=== PATIENT | male | born 1980 | race Caucasian/White ===

== ENCOUNTER 2023-08-06 07:20 | Inpatient (IN) | payer OTHER ==
--- NOTE | 2023-08-06 07:37 | ED ---
General Adult HPI - General Chief complaint: Recheck/Abnormal Lab/Rx Stated complaint: Withdrawals Time Seen by Provider: 08/06/23 07:21 Source: patient, EMS, RN notes reviewed Mode of arrival: EMS Limitations: no limitations - History of Present Illness Initial comments: 43-year-old male presents emergency department via EMS from [place] for evaluation of alcohol withdrawal. Patient states that he was admitted on Friday states that he has been receiving Ativan at the facility for his withdrawal symptoms. He states he was drinking 1 L of liquor daily. Patient states he did have withdrawal symptoms including shaking, nausea and vomiting but was controlled by the medications. He states he did receive Ativan just prior to arrival. He does admit that he is very anxious because he does not like being in the hospital or needles. Patient denies chest pain shortness of breath hallucinations he states he was having a dream in which she stated was very vivid and was trying to run away. - Related Data Home Medications Medication Instructions Recorded Confirmed LORazepam [Ativan] 1 - 2 mg PO Q4H PRN 08/06/23 08/06/23 Allergies Allergy/AdvReac Type Severity Reaction Status Date / Time No Known Allergies Allergy Verified 08/06/23 10:20 Review of Systems ROS Statement: Those systems with pertinent positive or pertinent negative responses have been documented in the HPI. ROS Other: All systems not noted in ROS Statement are negative. Past Medical History Past Medical History: No Reported History History of Any Multi-Drug Resistant Organisms: None Reported Past Surgical History: Appendectomy Past Psychological History: No Psychological Hx Reported Smoking Status: Current every day smoker Past Alcohol Use History: Abuse Past Drug Use History: Marijuana General Exam Limitations: no limitations General appearance: alert, in no apparent distress Head exam: Present: atraumatic, normocephalic, normal inspection Eye exam: Present: normal appearance, PERRL, EOMI. Absent: scleral icterus, conjunctival injection, periorbital swelling ENT exam: Present: normal exam, normal oropharynx, mucous membranes moist Neck exam: Present: normal inspection, full ROM. Absent: tenderness, meningismus, lymphadenopathy Respiratory exam: Present: normal lung sounds bilaterally. Absent: respiratory distress, wheezes, rales, rhonchi, stridor Cardiovascular Exam: Present: normal rhythm, tachycardia, normal heart sounds. Absent: systolic murmur, diastolic murmur, rubs, gallop, clicks GI/Abdominal exam: Present: soft, normal bowel sounds. Absent: distended, tenderness, guarding, rebound, rigid Neurological exam: Present: alert, oriented X3 Skin exam: Present: warm, dry, intact, normal color. Absent: rash Course Vital Signs 08/06/23 08/06/23 08/06/23 07:26 07:34 08:05 Temperature 99.4 F Pulse Rate 130 H 128 H 114 H Respiratory 20 19 17 Rate Blood Pressure 144/113 127/87 122/85 O2 Sat by Pulse 94 L 95 96 Oximetry 08/06/23 08/06/23 08/06/23 09:15 12:03 14:42 Temperature 99.0 F Pulse Rate 115 H 129 H 100 Respiratory 20 20 18 Rate Blood Pressure 124/80 125/85 127/89 O2 Sat by Pulse 97 97 96 Oximetry EKG Findings - EKG Comments: EKG Findings:: EKG performed at 7: 41 sinus tachycardia with rate of 120 NC 124 QRS 77 QT/QTc 293/365 - EKG Results: EKG: interpreted by [facility] Medical Decision Making - Medical Decision Making Was pt. sent in by a medical professional or institution (, PA, IP ATTORNEY, urgent care, hospital, or detention...) When possible be specific @ -[place] Did you speak to anyone other than the patient for history (EMS, parent, family, police, friend...)? What history was obtained from this source @ -No Did you review nursing and triage notes (agree or disagree)? Why? @ -I reviewed and agree with nursing and triage notes Were old charts reviewed (outside hosp., previous admission, EMS record, old EKG, old radiological studies, urgent care reports/EKG's, detention records)? Report findings @ -No old charts were reviewed Differential Diagnosis (chest pain, altered mental status, abdominal pain women, abdominal pain men, vaginal bleeding, weakness, fever, dyspnea, syncope, headache, dizziness, GI bleed, back pain, seizure, CVA, palpatations, mental health, musculoskeletal)? @ -[Alcohol withdrawal, alcohol abuse, alcohol intoxication EKG interpreted by me (3pts min.). @ -As above X-rays interpreted by me (1pt min.). @ -None done CT interpreted by me (1pt min.). @ -None done U/S interpreted by me (1pt. min.). @ -None done What testing was considered but not performed or refused? (CT, X-rays, U/S, labs)? Why? @ -None What meds were considered but not given or refused? Why? @ -None Did you discuss the management of the patient with other professionals (professionals i.e. , PA, IP ATTORNEY, lab, RT, psych nurse, social worker clinical, manufacturing plant technician, teacher, aoc director combat operations officer, case management manager)? Give summary @ -EM for admission secondary to persistent hallucinations, delirium from alcohol withdraw patient has received multiple doses of Ativan] Was smoking cessation discussed for >3mins.? @ -No Was critical care preformed (if so, how long)? @ -No Were there social determinants of health that impacted care today? How? (Homelessness, low income, unemployed, alcoholism, drug addiction, transportation, low edu. Level, literacy, decrease access to med. care, group home, rehab)? @ -No Was there de-escalation of care discussed even if they declined (Discuss DNR or withdrawal of care, Hospice)? DNR status @ -No What co-morbidities impacted this encounter? (DM, HTN, Smoking, COPD, CAD, Cancer, CVA, ARF, Chemo, Hep., AIDS, mental health diagnosis, sleep apnea, morbid obesity)? @ -[Alcohol abuse Was patient admitted / discharged? Hospital course, mention meds given and route, prescriptions, significant lab abnormalities, going to OR and other pertinent info. @ -Admitted patient has alcohol withdrawal with delirium patient is on CIWA and Ativan withdrawal protocol patient has received multiple doses with persistent symptoms. Patient did have mild hypomagnesia which was replaced. Undiagnosed new problem with uncertain prognosis? @ -No Drug Therapy requiring intensive monitoring for toxicity (Heparin, Nitro, Insulin, Cardizem)? @ -No Were any procedures done? @ -No Diagnosis/symptom? @ -[Alcohol drawl delirium, hypomagnesemia Acute, or Chronic, or Acute on Chronic? @ -Acute Uncomplicated (without systemic symptoms) or Complicated (systemic symptoms)? @ -Complicated Side effects of treatment? @ -[No Exacerbation, Progression, or Severe Exacerbation? @ -No Poses a threat to life or bodily function? How? (Chest pain, [place], [place], pneumonia, PE, COPD, DKA, ARF, appy, cholecystitis, CVA, Diverticulitis, Homicidal, Suicidal, threat to staff... and all critical care pts) @ -[Yes alcohol withdrawal - Lab Data Result diagrams: 08/06/23 07:53 08/06/23 07:53 Lab Results 08/06/23 08/06/23 08/06/23 Range/Units 07:53 07:53 07:53 WBC 8.3 (3.8-10.6) k/uL RBC 4.62 (4.30-5.90) m/uL Hgb 16.3 (13.0-17.5) gm/dL Hct 46.8 (39.0-53.0) % MCV 101.3 H (80.0-100.0) fL MCH 35.2 H (25.0-35.0) pg MCHC 34.8 (31.0-37.0) g/dL RDW 13.1 (11.5-15.5) % Plt Count 70 L (150-450) k/uL MPV 9.7 Neutrophils % 81 % Lymphocytes % 8 % Monocytes % 9 % Eosinophils % 1 % Basophils % 0 % Neutrophils # 6.8 (1.3-7.7) k/uL Lymphocytes # 0.7 L (1.0-4.8) k/uL Monocytes # 0.7 (0-1.0) k/uL Eosinophils # 0.1 (0-0.7) k/uL Basophils # 0.0 (0-0.2) k/uL Manual Slide Review Performed Macrocytosis Slight Sodium 137 (137-145) mmol/L Potassium 4.2 (3.5-5.1) mmol/L Chloride 95 L (98-107) mmol/L Carbon Dioxide 29 (22-30) mmol/L Anion Gap 13 mmol/L BUN 22 H (9-20) mg/dL Creatinine 1.12 (0.66-1.25) mg/dL Est GFR (CKD-EPI)AfAm >90 (>60 ml/min/1.73 sqM) Est GFR (CKD-EPI)NonAf 81 (>60 ml/min/1.73 sqM) Glucose 98 (74-99) mg/dL Plasma Lactic Acid Jef[place] (0.7-2.0) mmol/L Calcium 10.9 H (8.4-10.2) mg/dL Magnesium 1.4 L (1.6-2.3) mg/dL Total Bilirubin 1.0 (0.2-1.3) mg/dL AST 164 H (17-59) U/L ALT 140 H (4-49) U/L Alkaline Phosphatase 74 (38-126) U/L Total Protein 7.5 (6.3-8.2) g/dL Albumin 4.8 (3.5-5.0) g/dL Amylase 71 (30-110) U/L Lipase 146 (23-300) U/L Urine Color [place] Urine Appearance Clear (Clear) Urine pH 5.5 (5.0-8.0) Ur Specific [place] 1.034 (1.001-1.035) Urine Protein 1+ H (Negative) Urine Glucose (UA) Negative (Negative) Urine Ketones 2+ H (Negative) Urine Blood Negative (Negative) Urine Nitrite Negative (Negative) Urine Bilirubin 1+ H (Negative) Urine Urobilinogen 6.0 (<2.0) mg/dL Ur Leukocyte Esterase Trace H (Negative) Urine RBC 3 (0-5) /hpf Urine WBC 4 (0-5) /hpf Ur Squamous Epith Cells 1 (0-4) /hpf Urine Bacteria Rare H (None) /hpf Hyaline Casts 110 H (0-2) /lpf Urine Mucus Many H (None) /hpf Influenza Type A (PCR) (Not Detectd) Influenza Type B (PCR) (Not Detectd) RSV (PCR) (Not Detectd) SARS-CoV-2 (PCR) (Not Detectd) 08/06/23 08/06/23 Range/Units 07:53 07:53 WBC (3.8-10.6) k/uL RBC (4.30-5.90) m/uL Hgb (13.0-17.5) gm/dL Hct (39.0-53.0) % MCV (80.0-100.0) fL MCH (25.0-35.0) pg MCHC (31.0-37.0) g/dL RDW (11.5-15.5) % Plt Count (150-450) k/uL MPV Neutrophils % % Lymphocytes % % Monocytes % % Eosinophils % % Basophils % % Neutrophils # (1.3-7.7) k/uL Lymphocytes # (1.0-4.8) k/uL Monocytes # (0-1.0) k/uL Eosinophils # (0-0.7) k/uL Basophils # (0-0.2) k/uL Manual Slide Review Macrocytosis Sodium (137-145) mmol/L Potassium (3.5-5.1) mmol/L Chloride (98-107) mmol/L Carbon Dioxide (22-30) mmol/L Anion Gap mmol/L BUN (9-20) mg/dL Creatinine (0.66-1.25) mg/dL Est GFR (CKD-EPI)AfAm (>60 ml/min/1.73 sqM) Est GFR (CKD-EPI)NonAf (>60 ml/min/1.73 sqM) Glucose (74-99) mg/dL Plasma Lactic Acid Jefry 1.9 (0.7-2.0) mmol/L Calcium (8.4-10.2) mg/dL Magnesium (1.6-2.3) mg/dL Total Bilirubin (0.2-1.3) mg/dL AST (17-59) U/L ALT (4-49) U/L Alkaline Phosphatase (38-126) U/L Total Protein (6.3-8.2) g/dL Albumin (3.5-5.0) g/dL Amylase (30-110) U/L Lipase (23-300) U/L Urine Color Urine Appearance (Clear) Urine pH (5.0-8.0) Ur Specific [place] (1.001-1.035) Urine Protein (Negative) Urine Glucose (UA) (Negative) Urine Ketones (Negative) Urine Blood (Negative) Urine Nitrite (Negative) Urine Bilirubin (Negative) Urine Urobilinogen (<2.0) mg/dL Ur Leukocyte Esterase (Negative) Urine RBC (0-5) /hpf Urine WBC (0-5) /hpf Ur Squamous Epith Cells (0-4) /hpf Urine Bacteria (None) /hpf Hyaline Casts (0-2) /lpf Urine Mucus (None) /hpf Influenza Type A (PCR) Not Detected (Not Detectd) Influenza Type B (PCR) Not Detected (Not Detectd) RSV (PCR) Not Detected (Not Detectd) SARS-CoV-2 (PCR) Not Detected (Not Detectd) Disposition Clinical Impression: Alcohol withdrawal delirium Disposition: ADMITTED IP TO THIS HOSP Condition: Fair Time of Disposition: 09:41
[2023-08-06] MEDS: NICOTINE 21MG/24HR PATCH TRANSDERM STA (07:57)
[2023-08-06] MEDS: LORazepam 2 MG/ML INJ IV STA ×4 (08:00→12:05)
[2023-08-06] MEDS: SODIUM CHLORIDE 0.9% 1,000 ML IV STA (08:01)
[2023-08-06] MEDS: SODIUM CHLORIDE 0.9% 500 ML 500 ML IV STA (08:02)
[2023-08-06 08:08] LABS: Appearance,Urine Clear (Clear); Bacteria,Urine Rare /hpf; Bilirubin,Urine 1+ (Negative); Blood,Urine Negative (Negative); Color,Urine Orange; Glucose,Urine (UA) Negative (Negative); Hyaline Casts,Urine 110 /lpf (0-2); Ketones,Urine 2+ (Negative); Leukocyte Esterase,Urine Trace (Negative); Mucus,Urine Many /hpf; Nitrite,Urine Negative (Negative); PH, Urine 5.5 (5.0-8.0); Protein,Urine 1+ (Negative); RBC,Urine 3 /hpf (0-5); Specific Gravity,Urine 1.034 (1.001-1.035); Squamous Epithelial Cell,Urine 1 /hpf (0-4); WBC,Urine 4 /hpf (0-5)
[2023-08-06 08:17] LABS: Basophils % (A) 0 %; Eosinophils # (A) 0.1 k/uL (0-0.7); Eosinophils % (A) 1 %; HCT 46.8 % (39.0-53.0); HGB 16.3 gm/dL (13.0-17.5); Lymphocytes # (A) 0.7 k/uL (1.0-4.8); Lymphocytes % (A) 8 %; MCH 35.2 pg (25.0-35.0); MCHC 34.8 g/dL (31.0-37.0); MCV 101.3 fL (80.0-100.0); Macrocytosis Slight; Mean Platelet Volume 9.7; Monocytes # (A) 0.7 k/uL (0-1.0); Monocytes % (A) 9 %; Neutrophils # (A) 6.8 k/uL (1.3-7.7); Neutrophils % (A) 81 %; RBC 4.62 m/uL (4.30-5.90); RDW 13.1 % (11.5-15.5); WBC 8.3 k/uL (3.8-10.6)
[2023-08-06 08:18] LABS: ALT 140 U/L (4-49); AST 164 U/L (17-59); African American GFR (CKD) >90 (>60 ml/min/1.73 sqM); Albumin 4.8 g/dL (3.5-5.0); Alkaline Phosphatase 74 U/L (38-126); Amylase 71 U/L (30-110); Anion Gap 13 mmol/L; Blood Urea Nitrogen 22 mg/dL (9-20); Calcium 10.9 mg/dL (8.4-10.2); Carbon Dioxide 29 mmol/L (22-30); Chloride 95 mmol/L (98-107); Glucose 98 mg/dL (74-99); Lipase 146 U/L (23-300); Magnesium 1.4 mg/dL (1.6-2.3); Non-African American GFR(CKD) 81 (>60 ml/min/1.73 sqM); Potassium 4.2 mmol/L (3.5-5.1); Sodium 137 mmol/L (137-145); Total Protein 7.5 g/dL (6.3-8.2)
[2023-08-06 10:05] LABS: Platelet Count 70 k/uL (150-450)
[2023-08-06] MEDS ORDERED: NALOXONE 0.4 MG/ML 1 ML VIAL IV PRN ×2 (10:20→12:11)
[2023-08-06] MEDS ORDERED: OLANZapine 10 MG VIAL IM PRN (10:25)
--- NOTE | 2023-08-06 10:33 | XR ---
EXAMINATION TYPE: XR chest 2V DATE OF EXAM: 08/06/2023 COMPARISON: NONE HISTORY: Fever. TECHNIQUE: Frontal and lateral views of the chest are obtained. FINDINGS: There is no focal air space opacity, pleural effusion, or pneumothorax seen. The cardiac silhouette size is within normal limits. The osseous structures are intact. IMPRESSION: No acute cardiopulmonary process.
[2023-08-06] MEDS: MAGNESIUM OXIDE 400 MG TAB PO STA (10:46)
[2023-08-06] MEDS: SODIUM CHLORIDE 0.9% 1,000 ML IV SCH (10:46)
[2023-08-06] MEDS: LORazepam 2 MG/ML INJ IV PRN (11:23)
[2023-08-06] MEDS ORDERED: MAG HYDROX/AL HYDROX/SIMETH 30 ML CUP PO PRN (12:11)
--- NOTE | 2023-08-06 12:12 | P.HPIM ---
History of Present Illness H&P Date: 08/06/23 History of present illness; patient is of 43-year-old gentleman with past medical significant for alcohol abuse who presented to the ER for alcohol detox. Patient was sent to the ER from [place] where he was admitted on Friday for alcohol detox. Patient admits to drinking 1 L of alcohol daily. Denies any use of recreational drugs. Patient stated that he wanted to quit drinking as it was causing problems for his family. Denies any auditory or visualizations. There is no complaint of suicidal thoughts. Patient was being treated with oral Ativan at [place] but patient was getting restless and tachycardic. Patient was also complaining of increased shakiness. There was complaint of nausea and vomiting. Denies abdominal pain. Denies any chest pain or shortness of breath. Initial lab work done in the ER showed WBC 8.3, hemoglobin 13.3, platelet count 70, sodium 130 potassium 4.2, BUN 22, creatinine 1.12, magnesium 1.4 AST 164, ALT 140 Influenza A not detected Influenza B not detected RSV not detected COVID-19 not detected UA negative for infection EKG done in the ER showed heart rate of 120 , no ST segment elevation or depression seen, no T-wave inversions seen. Chest x-ray done in the ER no acute cardiopulmonary process Patient admitted to internal medicine service REVIEW OF SYSTEMS: CONSTITUTIONAL: As mentioned above HEENT: No recent visual problems or hearing problems. Denied any sore throat. CARDIOVASCULAR: No chest pain, orthopnea, PND, no palpitations, no syncope. PULMONARY: No shortness of breath, no cough, no hemoptysis. GASTROINTESTINAL: No diarrhea, no nausea, no vomiting, no abdominal pain. NEUROLOGICAL: No headaches, no weakness, no numbness. HEMATOLOGICAL: Denies any bleeding or petechiae. GENITOURINARY: Denies any burning micturition, frequency, or urgency. MUSCULOSKELETAL/RHEUMATOLOGICAL: Denies any joint pain, swelling, or any muscle pain. ENDOCRINE: Denies any polyuria or polydipsia. The rest of the 14-point review of systems is negative. PHYSICAL EXAMINATION: GENERAL: The patient is alert and oriented x3, not in any acute distress. Shaky HEENT: Pupils are round and equally reacting to light. EOMI. No scleral icterus. No conjunctival pallor. Normocephalic, atraumatic. No pharyngeal erythema. No thyromegaly. CARDIOVASCULAR: S1 and S2 present. No murmurs, rubs, or gallops. Tachycardic PULMONARY: Chest is clear to auscultation, no wheezing or crackles. ABDOMEN: Soft, nontender, nondistended, normoactive bowel sounds. No palpable organomegaly. MUSCULOSKELETAL: No joint swelling or deformity. EXTREMITIES: No cyanosis, clubbing, or pedal edema. NEUROLOGICAL: Gross neurological examination did not reveal any focal deficits. SKIN: No rashes. Assessment and plan Alcohol abuse alcohol detox Hypomagnesemia Thrombocytopenia Alcoholic hepatitis Monitor vital signs Monitor CBC Monitor CMP Continue telemetry monitoring Replace magnesium Continue CIWA protocol Continue high-dose thiamine and folic acid Monitor LFTs Ordered ultrasound abdominal Consult psychiatry Labs and medication were reviewed.. Continue same treatment. Continue with symptomatic treatment. Resume home medication. Monitor labs and vitals. DVT and GI prophylaxis. Further recommendations as per clinical course of the patient Dictation was produced using [employer] [place] dictation software. please excuse any grammatical, word or spelling errors. Past Medical History Past Medical History: No Reported History History of Any Multi-Drug Resistant Organisms: None Reported Past Surgical History: Appendectomy Past Psychological History: No Psychological Hx Reported Smoking Status: Current every day smoker Past Alcohol Use History: Abuse Past Drug Use History: Marijuana Medications and Allergies Home Medications Medication Instructions Recorded Confirmed Type LORazepam [Ativan] 1 - 2 mg PO Q4H PRN 08/06/23 08/06/23 History Allergies Allergy/AdvReac Type Severity Reaction Status Date / Time No Known Allergies Allergy Verified 08/06/23 10:20 Physical Exam Vitals: Vital Signs Temp Pulse Resp BP Pulse Ox 08/06/23 09:15 99.0 F 115 H 20 124/80 97 08/06/23 08:05 114 H 17 122/85 96 08/06/23 07:34 128 H 19 127/87 95 08/06/23 07:26 99.4 F 130 H 20 144/113 94 L Intake and Output 08/05/23 08/06/23 08/06/23 22:59 06:59 14:59 Other: Weight 74.843 kg Results CBC & Chem 7: 08/06/23 07:53 08/06/23 07:53 Labs: Abnormal Lab Results - Last 24 Hours (Table) 08/06/23 08/06/23 08/06/23 Range/Units 07:53 07:53 07:53 MCV 101.3 H (80.0-100.0) fL MCH 35.2 H (25.0-35.0) pg Plt Count 70 L (150-450) k/uL Lymphocytes # 0.7 L (1.0-4.8) k/uL Chloride 95 L (98-107) mmol/L BUN 22 H (9-20) mg/dL Calcium 10.9 H (8.4-10.2) mg/dL Magnesium 1.4 L (1.6-2.3) mg/dL AST 164 H (17-59) U/L ALT 140 H (4-49) U/L Urine Protein 1+ H (Negative) Urine Ketones 2+ H (Negative) Urine Bilirubin 1+ H (Negative) Ur Leukocyte Esterase Trace H (Negative) Urine Bacteria Rare H (None) /hpf Hyaline Casts 110 H (0-2) /lpf Urine Mucus Many H (None) /hpf
[2023-08-06] MEDS: DEXMEDETOMIDINE/0.9% NACL(PMX) 400 MCG in EMPTY BAG 1 BAG IV SCH (13:35)
[2023-08-06] MEDS: chlordiazePOXIDE 25 MG CAP PO STA (14:12)
[2023-08-06] MEDS: MAGNESIUM SULFATE-D5W PMX 1 GM in DEXTROSE/WATER 1 100ML.BAG IVPB SCH (14:12)
[2023-08-06] MEDS ORDERED: ZIPRASIDONE 40 MG CAP PO PRN (14:17)
[2023-08-06] MEDS ORDERED: traZODone HCL 100 MG TAB PO PRN (14:25)
--- NOTE | 2023-08-06 14:25 | P.CN ---
Psychiatric Consult - . Consult date: 08/06/23 Consult:: 08/06/23 13:35 IDENTIFYING DATA: This patient is a 43-year-old male, currently lives with his family, he is he has 2 kids, he lives in a house, he is unemployed REASON FOR REFERRAL: Psychiatry was consulted for alcohol abuse and severe depression HISTORY OF PRESENT ILLNESS: The patient presented to the hospital on 08/06 via EMS from [place]. Patient was apparently being treated at [facility] since Friday for alcohol withdrawal. He was apparently receiving Ativan. Patient had reported in the ER that he was drinking about a liter of liquor per day. He was admitting to having treasures nausea vomiting and anxiety. LFTs were elevated, patient is tachycardic. He was seen today by racebook writer at the bedside. Patient appeared to be confused, he got up and tried to walk towards racebook writer to grab onto his badge. Patient needs to be redirected back to his bed. He was a rather poor historian, he was rambling at times, at times illogical as well. States that he believes that he is in a "rehab center" and states that he has been "in and out of the hospital". He states that he was previously at [facility] getting treatment. He believes that it was "August 27, 1923. He knew his full name and his age. He claims that he is in a "happy mood". He had poor attention span. States that he is tired of going to different facilities. He answered some questions appropriately. States that he does not have anxiety at this time however he did have shaking in his hands. He was unsure of when his last drink was. Not endorsing any delusions at this time. At this time patient denies any suicidal or homical ideations, intent or plan. Patient denies any auditory, visual hallucinations and denies any paranoia or delusions. Patients admits to using marijuana occasionally, alcohol drinking approximately a liter of liquor per day. Claims that he also smokes cigarettes. PAST PSYCHIATRIC HISTORY: Patient has a a history of alcohol abuse, depression/anxiety. Patient denies being on any psychiatric medications. Patient denies any previous psychiatric hospitalizations. Patient denies any psychiatric outpatient follow-up. Patient denies any history of suicide attempts in the past. Past Medical History: No Reported History History of Any Multi-Drug Resistant Organisms: None Reported Past Surgical History: Appendectomy Past Psychological History: No Psychological Hx Reported Smoking Status: Current every day smoker Past Alcohol Use History: Abuse Past Drug Use History: Marijuana ALLERGIES: as per EMR. CHEMICAL DEPENDENCY HISTORY: as per HPI. FAMILY PSYCHIATRIC/SUBSTANCE USE HISTORY: Denies SOCIAL HISTORY: Patient was born and raised in [facility]. States that he completed high school, claims that he is currently unemployed however used to work in the restaurant industry as a dishwasher preparer. Claims that he lives with his family he is , he has 2 kids, he lives in a house, states that he was charged previously for a DUI about 4 5 months ago.. MENTAL STATUS EXAM: General Appearance: Patient appears to be thin, greyish hair, stated age is alert, attempts to cooperate, appears confused. Patient appears to have fair hygiene and grooming wearing hospital gown with intense eye contact. Behavior: Confused, wandering. Speech: Patient's speech is fluent and nonpressured. [place] Mood/Affect: Patient reports their mood is "ok", affect is congruent Suicidality/Homicidality: Patient denies having any suicidal or homicidal ideation intent or plan. Perceptions: Patient denies any visual hallucinations and denies any auditory hallucinations Though content/process: No delusions or paranoia. Rambling, illogical at times. Poor historian. Memory and concentration: AOX1, does not know his current location or his the situation, does not know today's date. Poor attention span. Cannot spell "WORLD" backwards Judgment and insight: Poor IMPRESSIONS: Delirium, likely secondary to alcohol withdrawal History of depression and anxiety Alcohol use disorder, severe dependence Cannabis use disorder Nicotine dependence PLAN: -At this time patient DOES NOT meet criteria for inpatient psychiatric admission however will be continued to be followed as patient is being treated for acute delirium -Delirium precautions recommended with patient including - avoiding use of narcotics and SENIOR WINDOWS SYSTEMS ADMINISTRATOR sedatives, limit anticholinergic medications when possible, frequent re-orientation, minimize use of restraints, open window shades during the day and close them at night -Would recommend the following medication changes/additions: added librium po 50 mg TID for etoh, with plan to taper down. Will consider anticraving medications once patient is more medically stable and possibly antidepressants. Geodon as needed p.o. or IM for agitation/psychosis. Trazodone as needed for insomnia. -CIWA protocol with PRN Ativan for alcohol withdrawal. Continue to monitor vital signs. -Continue 1:1 sitter for safety -Communicated plan to patient's nurse -Will continue to follow along as needed. -Please contact with any questions. 08/06/23 14:18
--- NOTE | 2023-08-06 14:25 | P.CNPUL ---
History of Present Illness Consult date: 08/06/23 Requesting physician: Madhu Mcdaniel Reason for consult: other (Critical care management) Chief complaint: Acute alcohol withdrawal History of present illness: This is a 43-year-old male patient who resides in the [place] area who had recently been admitted to [facility] for alcohol withdrawal. He was admitting to drinking 1 L of tequila per day. He smokes 2 packs of cigarettes per day and 1 marijuana joint per day. States his last drink was at noon on the 12th prior to his admission to [place]. He was sent here today by EMS for acute withdrawal syndromedelirium. Chest x-ray revealed no acute pulmonary process. EKG revealed sinus tachycardia. White cou nt 8.3. Hemoglobin 16.3. Platelets 70,000. Sodium 137. Potassium 4.2. Bicarb 29. BUN 22. Creatinine 1.12. AST 164. ALT 140. Lipase 146. Viral screen negative. Since his arrival he has required 10 mg of Ativan. He is still quite restless. Precedex drip was ordered and he will be admitted to the intensive care unit. He is seen today in consultation in the emergency department. He has restless. Walking around in his room. Security is at the bedside. Precedex had not been started yet. He is maintaining O2 saturations in the 90s on room air. He is tachycardic in the 110s, 120s. Blood pressure stable. Afebrile. Review of Systems REVIEW OF SYSTEMS: CONSTITUTIONAL: Restless, agitated. Denies any recent significant weight loss or weight gain. EYES: Denies change in vision. EARS, NOSE, MOUTH, THROAT: Denies headaches, denies sore throat. CARDIOVASCULAR: Denies chest pain, palpitations or syncopal episodes. RESPIRATORY: Denies shortness of breath, cough, congestion or hemoptysis. GASTROINTESTINAL: Denies change in appetite, denies abdominal pain GENITOURINARY: Denies hematuria, denies infections. MUSKULOSKELETAL: Denies pain, denies swelling. INTEGUMENTARY: Denies rash, denies eczema. NEUROLOGICAL: Denies recent memory loss, no recent seizure activity. PSYCHIATRIC: Restless, agitated, delirious. HEMATOLOGIC/LYMPHATIC: Denies anemia, denies enlarged lymph nodes. Past Medical History Past Medical History: No Reported History History of Any Multi-Drug Resistant Organisms: None Reported Past Surgical History: Appendectomy Past Psychological History: No Psychological Hx Reported Smoking Status: Current every day smoker Past Alcohol Use History: Abuse Past Drug Use History: Marijuana Medications and Allergies Home Medications Medication Instructions Recorded Confirmed Type LORazepam [Ativan] 1 - 2 mg PO Q4H PRN 08/06/23 08/06/23 History Allergies Allergy/AdvReac Type Severity Reaction Status Date / Time No Known Allergies Allergy Verified 08/06/23 10:20 Physical Exam Vitals: Vital Signs Temp Pulse Resp BP Pulse Ox 08/06/23 12:03 129 H 20 125/85 97 08/06/23 09:15 99.0 F 115 H 20 124/80 97 08/06/23 08:05 114 H 17 122/85 96 08/06/23 07:34 128 H 19 127/87 95 08/06/23 07:26 99.4 F 130 H 20 144/113 94 L Intake and Output 08/05/23 08/06/23 08/06/23 22:59 06:59 14:59 Other: Weight 74.843 kg GENERAL EXAM: Alert, restless, agitated 43-year-old male patient, on room air, in no apparent distress. HEAD: Normocephalic. EYES: Normal reaction of pupils, equal size. NOSE: Clear with pink turbinates. THROAT: No erythema or exudates. NECK: No masses, no JVD. CHEST: No chest wall deformity. LUNGS: Equal air entry with no crackles, wheeze, rhonchi or dullness. CVS: S1 and S2 normal with no audible murmur, regular rhythm. ABDOMEN: No hepatosplenomegaly, normal bowel sounds, no guarding or rigidity. SPINE: No scoliosis or deformity SKIN: No rashes CENTRAL NERVOUS SYSTEM: No focal deficits, tone is normal in all 4 extremities. EXTREMITIES: There is no peripheral edema. No clubbing, no cyanosis. Peripheral pulses are intact. Results - Laboratory Findings CBC and BMP: 08/06/23 07:53 08/06/23 07:53 Abnormal lab findings: Abnormal Labs 08/06/23 08/06/23 08/06/23 07:53 07:53 07:53 MCV 101.3 H MCH 35.2 H Plt Count 70 L Lymphocytes # 0.7 L Chloride 95 L BUN 22 H Calcium 10.9 H Magnesium 1.4 L AST 164 H ALT 140 H Urine Protein 1+ H Urine Ketones 2+ H Urine Bilirubin 1+ H Ur Leukocyte Esterase Trace H Urine Bacteria Rare H Hyaline Casts 110 H Urine Mucus Many H - Diagnostic Findings Chest x-ray: image reviewed (No acute pulmonary process) Assessment and Plan Assessment: Acute alcohol withdrawal syndrome, admitted to [facility] on 06/03/2024, brought here to the emergency room today 06/05/2024 for delirium Alcohol abuse admitting to 1 L of tequila daily Transaminitis secondary to above Thrombocytopenia secondary to above Marijuana use admitting to smoking 1 joint daily Chronic and ongoing tobacco dependence of up to 2 packs/day Plan: The patient was seen and evaluated Chest x-ray, labs and medications reviewed Encouraged staff to initiate Precedex drip as soon as possible Continued on the CIWA protocol Psychiatry consult placed Initiated on [place] Observe for seizures from alcohol withdrawal Will be admitted to the intensive care unit I have personally seen and examined the patient, performed the documentation and the assessment and plan as written. Number of minutes spent on the visit: 20.
[2023-08-06] MEDS ORDERED: THIAMINE 100 MG TAB PO SCH (16:00)
--- NOTE | 2023-08-06 18:01 | US ---
EXAMINATION TYPE: US abdomen complete DATE OF EXAM: 08/06/2023 COMPARISON: NONE CLINICAL INDICATION: Male, 43 years old with history of Abdominal pain, elevated LFTs; elevated LFTs TECHNIQUE: Multiple sonographic images of the abdomen are obtained. FINDINGS: EXAM MEASUREMENTS: Liver Length: 20.0 cm Gallbladder Wall: 0.2 cm CBD: 0.5 cm Spleen: not visualized Right Kidney: 10.1x4.7x4.9 cm Left Kidney: 10.6x5.3x4.7 cm Pancreas: Tail obscured by overlying bowel gas Liver: increased size. echogenicity, and attenuation Gallbladder: 1.5x0.8x1.4cm stone noted Evidence for sonographic Diggs's sign: No CBD: wnl Spleen: Obscured by overlying bowel gas Right Kidney: No hydronephrosis or masses seen Left Kidney: No hydronephrosis or masses seen Upper IVC: wnl Abd Aorta: wnl exam limited by gas, patient inability to follow directions, altered mental status The liver is homogenous. The intrahepatic portion of the IVC and proximal abdominal aorta are within normal limits. There is no evidence of cholelithiasis. Common bile duct is unremarkable. The visu alized portions of the pancreas are homogenous. Kidneys are symmetric and free of hydronephrosis. No renal lesions are seen. IMPRESSION: 1. Cholelithiasis. 2. Hepatic steatosis.
[2023-08-06 21:30] LABS: Glucose,Whole Blood 93 mg/dL (70-110)
[2023-08-06] MEDS: chlordiazePOXIDE 25 MG CAP PO SCH (21:43)
[2023-08-06] MEDS: THIAMINE 500 MG in SODIUM CHLORIDE 0.9% 100 ML IVPB SCH (21:58)
[2023-08-06] MEDS: ZIPRASIDONE 20 MG VIAL IM PRN (22:39)
[2023-08-07] MEDS: LORazepam 2 MG/ML INJ IV PRN ×2 (00:31→08:53)
[2023-08-07] MEDS ORDERED: SUCCINYLCHOLINE CHLORIDE 200 MG/10 ML VIAL IV ONE (00:38)
[2023-08-07] MEDS ORDERED: PROPOFOL 10 MG/ML 20 ML VIAL IV ONE (00:38)
[2023-08-07 01:06] LABS: ABG Base Excess -2.4 mmol/L; ABG HCO3 22 mmol/L (21-25); ABG Oxygen Saturation 99.6 % (94-97); ABG PCO2 37 mmHg (35-45); ABG PO2 343 mmHg (83-108); ABG TCO2 24 mmol/L (19-24); Allen Test Performed? Yes
--- NOTE | 2023-08-07 01:32 | XR ---
EXAM: XR Chest, 1 View CLINICAL HISTORY: ITS.REASON XR Reason: Tube placement TECHNIQUE: Frontal view of the chest. COMPARISON: 08/06/23 at 1030 hrs. FINDINGS: Lungs: Reduced lung volumes with bibasilar opacities, atelectasis or infiltrates. Pleural space: Unremarkable. No pleural effusion or pneumothorax. Heart: Unremarkable. No cardiomegaly or pulmonary vascular congestion. Bones/joints: No acute fracture. No dislocation. Tubes, lines and devices: Endotracheal tube 3.8 cm from the fabio. Enteric tube terminates in the mid esophagus. Recommend advancing 10 cm. IMPRESSION: 1. Reduced lung volumes with bibasilar opacities, atelectasis or infiltrates. 2. Endotracheal tube 3.8 cm from the fabio. 3. Enteric tube terminates in the mid esophagus. Recommend advancing 10 cm.
[2023-08-07] MEDS: propofoL 100 ML IV ONE (01:39)
--- NOTE | 2023-08-07 04:20 | P.PCN ---
Date of Procedure: 08/07/23 Preoperative Diagnosis: Acute alcohol withdrawal delirium tremens and ventilator dependent respiratory failure Postoperative Diagnosis: Acute alcohol withdrawal delirium tremens and ventilator dependent respiratory failure Procedure(s) Performed: Insertion of the left wrist radial arterial line Indications for Procedure: Continuous blood pressure monitoring and frequent blood draws Description of Procedure: Informed consent was obtained, and a procedural timeout was performed . The patient was placed in supine position. The left radial region was prepared in a sterile fashion, and a sterile drape was applied. The left radial artery was palpated, easily cannulated, and a guidewire was placed. A Cook catheter was inserted over the guidewire, and the guidewire was removed. There was good arterial blood flow, good arterial waveform, and no complications. The line was secured with using a 3-0 silk suture.
[2023-08-07 05:12] LABS: Basophils % (A) 0 %; Eosinophils # (A) 0.1 k/uL (0-0.7); Eosinophils % (A) 2 %; HCT 39.6 % (39.0-53.0); HGB 14.3 gm/dL (13.0-17.5); Lymphocytes # (A) 1.3 k/uL (1.0-4.8); Lymphocytes % (A) 17 %; MCH 36.2 pg (25.0-35.0); MCV 100.6 fL (80.0-100.0); Macrocytosis Slight; Mean Platelet Volume 11.6; Monocytes # (A) 0.5 k/uL (0-1.0); Monocytes % (A) 7 %; Neutrophils # (A) 5.4 k/uL (1.3-7.7); Neutrophils % (A) 73 %; RBC 3.94 m/uL (4.30-5.90); RDW 13.6 % (11.5-15.5); WBC 7.5 k/uL (3.8-10.6)
[2023-08-07 05:18] LABS: Platelet Count 57 k/uL (150-450)
[2023-08-07 05:21] LABS: ABG Base Excess -1.3 mmol/L; ABG HCO3 23 mmol/L (21-25); ABG PCO2 34 mmHg (35-45); ABG PH 7.44 (7.35-7.45); ABG PO2 148 mmHg (83-108); ABG TCO2 24 mmol/L (19-24)
[2023-08-07 06:06] LABS: ALT 142 U/L (4-49); AST 209 U/L (17-59); African American GFR (CKD) >90 (>60 ml/min/1.73 sqM); Albumin 3.6 g/dL (3.5-5.0); Alkaline Phosphatase 59 U/L (38-126); Anion Gap 10 mmol/L; Blood Urea Nitrogen 12 mg/dL (9-20); Calcium 9.2 mg/dL (8.4-10.2); Carbon Dioxide 23 mmol/L (22-30); Chloride 108 mmol/L (98-107); Glucose 84 mg/dL (74-99); Non-African American GFR(CKD) >90 (>60 ml/min/1.73 sqM); Potassium 3.3 mmol/L (3.5-5.1); Sodium 141 mmol/L (137-145); Total Bilirubin 1.1 mg/dL (0.2-1.3); Total Protein 5.9 g/dL (6.3-8.2)
[2023-08-07] MEDS ORDERED: Potassium Replacement Protocol 1 EACH MISC MISCELLANE PRN (06:14)
[2023-08-07] MEDS: POTASSIUM CHLORIDE 10 MEQ in WATER FOR INJECTION 1 100ML.BAG IVPB SCH (06:20)
[2023-08-07] MEDS: PANTOPRAZOLE 40 MG/10 ML VIAL IVP SCH (08:05)
[2023-08-07] MEDS: CHLORHEXIDINE GLUCONATE 15 ML CUP MUCOUS MEM SCH (08:05)
--- NOTE | 2023-08-07 08:57 | XR ---
EXAMINATION TYPE: XR chest 1V portable DATE OF EXAM: 08/07/2023 Comparison: 08/07/2023 Clinical History: 43-year-old male Tube placement Findings: ET and NG tubes are satisfactory. Heart mildly enlarged. Bibasilar opacities remain, slightly increas ed on the left. Impression: Mild cardiomegaly. Small bilateral pleural effusions with adjacent atelectasis and/or consolidation, slightly increased on the left.
[2023-08-07] MEDS ORDERED: THIAMINE 100 MG TAB PO SCH (09:00)
[2023-08-07] MEDS: MIDAZOLAM HCL 50 MG in SODIUM CHLORIDE 0.9% 40 ML IV SCH (09:43)
--- NOTE | 2023-08-07 11:55 | P.PN ---
Subjective Progress Note Date: 08/07/23 patient is of 43-year-old gentleman with past medical significant for alcohol abuse who presented to the ER for alcohol detox. Patient was sent to the ER from [place] where he was admitted on Friday for alcohol detox. Patient admits to drinking 1 L of alcohol daily. Denies any use of recreational drugs. Patient stated that he wanted to quit drinking as it was causing problems for his family. Denies any auditory or visualizations. There is no complaint of suicidal thoughts. Patient was being treated with oral Ativan at [place] but patient was getting restless and tachycardic. Patient was also complaining of increased shakiness. There was complaint of nausea and vomiting. Denies a bdominal pain. Denies any chest pain or shortness of breath. Initial lab work done in the ER showed WBC 8.3, hemoglobin 13.3, platelet count 70, sodium 130 potassium 4.2, BUN 22, creatinine 1.12, magnesium 1.4 AST 164, ALT 140 Influenza A not detected Influenza B not detected RSV not detected COVID-19 not detected UA negative for infection EKG done in the ER showed heart rate of 120 , no ST segment elevation or depression seen, no T-wave inversions seen. Chest x-ray done in the ER no acute cardiopulmonary process Patient admitted to internal medicine service 08/07. Patient seen examined. Patient's CIWA scores were high, was started on Precedex drip yesterday afternoon and was transferred to ICU. Patient continued to be agitated, was intubated and placed on propofol and Versed. Currently on vent. REVIEW OF SYSTEMS: Cannot be obtained as patient is currently intubated PHYSICAL EXAMINATION: GENERAL: The patient is intubated HEENT: Pupils are round and equally reacting to light. EOMI. No scleral icterus. No conjunctival pallor. Normocephalic, atraumatic. No pharyngeal erythema. No thyromegaly. CARDIOVASCULAR: S1 and S2 present. No murmurs, rubs, or gallops. PULMONARY: Chest is clear to auscultation, no wheezing or crackles. ABDOMEN: Soft, nontender, nondistended, normoactive bowel sounds. No palpable organomegaly. MUSCULOSKELETAL: No joint swelling or deformity. EXTREMITIES: No cyanosis, clubbing, or pedal edema. NEUROLOGICAL: Intubated and sedated. SKIN: No rashes. Assessment and plan Alcohol abuse alcohol detox Hypomagnesemia Thrombocytopenia Alcoholic hepatitis Marijuana use admitting to smoking 1 joint daily Chronic and ongoing tobacco dependence of up to 2 packs/day Monitor vital signs Monitor CBC Monitor CMP Continue telemetry monitoring Continue vent management per ICU Continue propofol and Versed Continue CIWA protocol Continue high-dose thiamine and folic acid Monitor LFTs Continue tube feeding ICU following Labs and medication were reviewed.. Continue same treatment. Continue with symptomatic treatment. Resume home medication. Monitor labs and vitals. DVT and GI prophylaxis. Further recommendations as per clinical course of the patient Dictation was produced using [employer] dictation software. please excuse any grammatical, word or spelling errors. Objective - Vital Signs Vital signs: Vital Signs Temp 97.6 F 08/07/23 08:00 Pulse 91 08/07/23 10:00 Resp 18 08/07/23 10:00 BP 99/65 08/07/23 10:00 Pulse Ox 95 08/07/23 10:00 FiO2 35 08/07/23 09:36 Intake & Output 08/06/23 08/07/23 08/07/23 18:59 06:59 18:59 Intake Total 54.512 1132.036 315 Output Total 1360 170 Balance 54.512 -227.964 145 Weight 74.843 kg 71.8 kg Intake: IV 900 275 Potassium Chloride 10 meq 100 100 In Water For Injection 1 100ml.bag @ 100 mls/hr IVPB Q1HR JACLYN Rx#: [id number] Sodium Chloride 0.9% 1, 600 75 000 ml @ 75 mls/hr IV . [id number] JACLYN Rx#:[id number] Thiamine 500 mg In Sodium 200 100 Chloride 0.9% 100 ml @ 200 mls/hr IVPB TID JACLYN Rx#:[id number] Intake, IV Titration 54.512 232.036 Amount Dexmedetomidine/0.9% NaCl 54.512 125.571 (Pmx) 400 mcg In Empty Bag 1 bag @ 0.2 MCG/KG/HR 3.742 mls/hr IV .Q24H JACLYN Rx#:[id number] propofoL 1,000 mg In 106.465 Empty Bag 1 bag @ 15 MCG/ KG/MIN 6.736 mls/hr IV . [id number] JACLYN Rx#:[id number] Other 40 Output: Urine 1360 170 Other: Voiding Method Indwelling Catheter Indwelling Catheter # Voids 0 ABP, PAP, CO, CI - Last Documented Arterial Blood Pressure 102/54 - Labs CBC & Chem 7: 08/07/23 05:00 08/07/23 05:00 Labs: Abnormal Lab Results - Last 24 Hours (Table) 08/07/23 08/07/23 08/07/23 Range/Units 01:04 05:00 05:00 RBC 3.94 L (4.30-5.90) m/uL MCV 100.6 H (80.0-100.0) fL MCH 36.2 H (25.0-35.0) pg Plt Count 57 L (150-450) k/uL ABG pCO2 (35-45) mmHg ABG pO2 343 H (83-108) mmHg ABG O2 Saturation 99.6 H (94-97) % Potassium 3.3 L (3.5-5.1) mmol/L Chloride 108 H (98-107) mmol/L Creatinine 0.57 L (0.66-1.25) mg/dL AST 209 H (17-59) U/L ALT 142 H (4-49) U/L Total Protein 5.9 L (6.3-8.2) g/dL 08/07/23 Range/Units 05:20 RBC (4.30-5.90) m/uL MCV (80.0-100.0) fL MCH (25.0-35.0) pg Plt Count (150-450) k/uL ABG pCO2 34 L (35-45) mmHg ABG pO2 148 H (83-108) mmHg ABG O2 Saturation 99.0 H (94-97) % Potassium (3.5-5.1) mmol/L Chloride (98-107) mmol/L Creatinine (0.66-1.25) mg/dL AST (17-59) U/L ALT (4-49) U/L Total Protein (6.3-8.2) g/dL
--- NOTE | 2023-08-07 13:24 | P.PN ---
Subjective Progress Note Date: 08/07/23 Principal diagnosis: Acute alcohol withdrawal This is a 43-year-old male patient who resides in the [facility] who had recently been admitted to [facility] for alcohol withdrawal. He was admitting to drinking 1 L of tequila per day. He smokes 2 p acks of cigarettes per day and 1 marijuana joint per day. States his last drink was at noon on the 12th prior to his admission to [place]. He was sent here today by EMS for acute withdrawal syndromedelirium. Chest x-ray revealed no acute pulmonary process. EKG revealed sinus tachycardia. White count 8.3. Hemoglobin 16.3. Platelets 70,000. Sodium 137. Potassium 4.2. Bicarb 29. BUN 22. Creatinine 1.12. AST 164. ALT 140. Lipase 146. Viral screen negative. Since his arrival he has required 10 mg of Ativan. He is still quite restless. Precedex drip was ordered and he will be admitted to the intensive care unit. He is seen today in consultation in the emergency department. He has restless. Walking around in his room. Security is at the bedside. Precedex had not been started yet. He is maintaining O2 saturations in the 90s on room air. He is tachycardic in the 110s, 120s. Blood pressure stable. Afebrile. Patient was reevaluated today on 08/07/2023, patient developed worsening picture of alcohol withdrawal and acute delirium tremens, requiring intubation and mechanical ventilation. He is now on assist-control 18 tidal volume 450 FiO2 35% and PEEP of 5, ABG showed a pO2 of 148 pCO2 34 pH of 7.44 hence his rate was cut down to 16 and his tidal volume kept the same FiO2 down to 35% patient is still requiring significant amount of sedation including propofol at 60 mcg/kg/min, Versed was added this morning mostly because of persistent agitation in spite of propofol on board. CBC is relatively normal basic metabolic profile is normal except for low potassium of 3.3 chest x-ray is showing mostly left basilar atelectasis. Doubt pneumonia. Screening for influenza A B, RSV and COVID-19 all negative patient remains on the CIWA protocol, and spite of being on Precedex yesterday, patient continued to develop alcohol withdrawal requiring intubation mechanical ventilation. Objective - Vital Signs Vital signs: Vital Signs Temp 97.6 F 08/07/23 08:00 Pulse 128 H 08/07/23 11:00 Resp 16 08/07/23 11:00 BP 99/65 08/07/23 10:00 Pulse Ox 99 08/07/23 11:00 FiO2 35 08/07/23 12:07 Intake & Output 08/06/23 08/07/23 08/07/23 18:59 06:59 18:59 Intake Total 54.512 1132.036 603.217 Output Total 1360 230 Balance 54.512 -227.964 373.217 Weight 74.843 kg 71.8 kg 71.8 kg Intake: IV 900 450 Potassium Chloride 10 meq 100 200 In Water For Injection 1 100ml.bag @ 100 mls/hr IVPB Q1HR JACLYN Rx#: [id number] Sodium Chloride 0.9% 1, 600 150 000 ml @ 75 mls/hr IV . [id number] JACLYN Rx#:[id number] Thiamine 500 mg In Sodium 200 100 Chloride 0.9% 100 ml @ 200 mls/hr IVPB TID JACLYN Rx#:[id number] Intake, IV Titration 54.512 232.036 103.217 Amount Dexmedetomidine/0.9% NaCl 54.512 125.571 (Pmx) 400 mcg In Empty Bag 1 bag @ 0.2 MCG/KG/HR 3.742 mls/hr IV .Q24H JACLYN Rx#:[id number] Midazolam HCl 50 mg In 8.166 Sodium Chloride 0.9% 40 ml @ 1 MG/HR 1 mls/hr IV .Q24H JACLYN Rx#:[id number] propofoL 1,000 mg In 106.465 95.051 Empty Bag 1 bag @ 15 MCG/ KG/MIN 6.736 mls/hr IV . [id number] JACLYN Rx#:[id number] Tube Feeding 10 Other 40 Output: Urine 1360 230 Other: Voiding Method Indwelling Catheter Indwelling Catheter # Voids 0 ABP, PAP, CO, CI - Last Documented Arterial Blood Pressure 156/90 - Exam General: Revealed 43-year-old male in no distress intubated mechanically ventilated sedated Head: Atraumatic, normocephalic. Endotracheal tube and orogastric tube are intact Skin: Skin is warm and dry and no rashes or lesions are noted. Eye: Pupils are equal, round and reactive to light, extra-ocular movements are intact; there is normal conjunctiva bilaterally. Ears, nose, mouth and throat: There are moist mucous membranes and no oral lesions. Neck: The neck is supple, there is no tenderness or JVD. Cardiovascular: There is a regular rate and rhythm. No murmur, rub or gallop is appreciated. Respiratory: Clear bilaterally no crackles rhonchi or wheezes Gastrointestinal: Soft, non-distended, non-tender abdomen without masses or organomegaly noted. There is no rebound or guarding present. Bowel sounds are unremarkable. Neurological: Could not assess patient is fully sedated with the propofol and Versed Psychiatric: Could not assess - Labs CBC & Chem 7: 08/07/23 05:00 08/07/23 05:00 Labs: Abnormal Lab Results - Last 24 Hours (Table) 08/07/23 08/07/23 08/07/23 Range/Units 01:04 05:00 05:00 RBC 3.94 L (4.30-5.90) m/uL MCV 100.6 H (80.0-100.0) fL MCH 36.2 H (25.0-35.0) pg Plt Count 57 L (150-450) k/uL ABG pCO2 (35-45) mmHg ABG pO2 343 H (83-108) mmHg ABG O2 Saturation 99.6 H (94-97) % Potassium 3.3 L (3.5-5.1) mmol/L Chloride 108 H (98-107) mmol/L Creatinine 0.57 L (0.66-1.25) mg/dL AST 209 H (17-59) U/L ALT 142 H (4-49) U/L Total Protein 5.9 L (6.3-8.2) g/dL 08/07/23 Range/Units 05:20 RBC (4.30-5.90) m/uL MCV (80.0-100.0) fL MCH (25.0-35.0) pg Plt Count (150-450) k/uL ABG pCO2 34 L (35-45) mmHg ABG pO2 148 H (83-108) mmHg ABG O2 Saturation 99.0 H (94-97) % Potassium (3.5-5.1) mmol/L Chloride (98-107) mmol/L Creatinine (0.66-1.25) mg/dL AST (17-59) U/L ALT (4-49) U/L Total Protein (6.3-8.2) g/dL Assessment and Plan Assessment: Impression: Acute alcohol withdrawal Acute delirium tremens Acute respiratory failure secondary to severe alcohol withdrawal requiring intubation mechanical ventilation to protect airways and to prevent harm 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 Prognosis is relatively guarded Patient is critically ill Critical care time is over 30 Time with Patient: Greater than 30
[2023-08-07] MEDS ORDERED: haloperidoL 5 MG TAB PO PRN (13:56)
--- NOTE | 2023-08-07 13:56 | P.PN ---
Progress Note - Text Progress Note Date: 08/07/23 Interval history: Patient was seen today at the bedside. Patient was placed on Librium yesterday due to impending delirium tremens. He was evaluated and admitted to the ICU due to high likelihood of DTs. Patient was intubated last night due to aggression, confusion in the ICU. Patient was sedated and intubated when principal technical writer came to evaluate patient. Nurse claims that patient's vital signs have been improving and does not report any other issues at this time. MENTAL STATUS EXAM: General Appearance: Patient appears to be thin, greyish hair, stated age is sedated, intubated. Behavior: Dated, intubated Speech: Unable to obtain Mood/Affect: Unable to obtain Suicidality/Homicidality: Unable to obtain Perceptions: Able to obtain Though content/process: Unable to obtain Memory and concentration: Unable to obtain Judgment and insight: Poor IMPRESSIONS: Delirium, secondary to alcohol withdrawal History of depression and anxiety Alcohol use disorder, severe dependence Cannabis use disorder Nicotine dependence PLAN: -At this time patient DOES NOT meet criteria for inpatient psychiatric admission however will be continued to be followed as patient is being treated for acute delirium -Delirium precautions recommended with patient including - avoiding use of narcotics and ACCESS SERVICES REPRESENTATIVE sedatives, limit anticholinergic medications when possible, frequent re-orientation, minimize use of restraints, open window shades during the day and close them at night -Would recommend the following medication changes/additions: hold off on librium po at this time as patient is currently intubated and on propofol. Can resume either Valium or Librium scheduled once patient is extubated. Haldol as needed for agitation/psychosis. -CIWA protocol with PRN Ativan for alcohol withdrawal. Continue to monitor vital signs. -Communicated plan to patient's nurse -Will continue to follow along as needed. -Please contact with any questions.
[2023-08-07] MEDS: ACETAMINOPHEN TAB 325 MG TAB PO PRN (19:29)
[2023-08-07] MEDS: HALOPERIDOL LACTATE 5 MG/ML 1 ML VIAL IM PRN (19:32)
[2023-08-08 04:22] LABS: Basophils % (A) 0 %; Eosinophils # (A) 0.1 k/uL (0-0.7); Eosinophils % (A) 1 %; HCT 45.5 % (39.0-53.0); Lymphocytes # (A) 0.8 k/uL (1.0-4.8); Lymphocytes % (A) 8 %; MCH 34.5 pg (25.0-35.0); MCV 104.6 fL (80.0-100.0); Macrocytosis Slight; Mean Platelet Volume 10.8; Monocytes # (A) 0.6 k/uL (0-1.0); Monocytes % (A) 7 %; Neutrophils # (A) 8.1 k/uL (1.3-7.7); Neutrophils % (A) 82 %; RBC 4.35 m/uL (4.30-5.90); RDW 13.5 % (11.5-15.5); WBC 9.9 k/uL (3.8-10.6)
[2023-08-08 04:31] LABS: ALT 125 U/L (4-49); AST 122 U/L (17-59); African American GFR (CKD) >90 (>60 ml/min/1.73 sqM); Albumin 3.2 g/dL (3.5-5.0); Alkaline Phosphatase 63 U/L (38-126); Anion Gap 7 mmol/L; Blood Urea Nitrogen 9 mg/dL (9-20); Calcium 8.8 mg/dL (8.4-10.2); Carbon Dioxide 22 mmol/L (22-30); Chloride 110 mmol/L (98-107); Glucose 120 mg/dL (74-99); Non-African American GFR(CKD) >90 (>60 ml/min/1.73 sqM); Potassium 3.5 mmol/L (3.5-5.1); Sodium 139 mmol/L (137-145); Total Bilirubin 0.7 mg/dL (0.2-1.3); Total Protein 5.5 g/dL (6.3-8.2)
[2023-08-08 04:37] LABS: Platelet Count 66 k/uL (150-450)
[2023-08-08] MEDS: POTASSIUM CHLORIDE 10 MEQ in WATER FOR INJECTION 1 100ML.BAG IVPB SCH ×2 (04:44→14:00)
[2023-08-08] MEDS: MAGNESIUM SULFATE-D5W PMX 1 GM in DEXTROSE/WATER 1 100ML.BAG IVPB ONE (05:23)
[2023-08-08 06:32] LABS: ABG Base Excess -1.1 mmol/L; ABG HCO3 24 mmol/L (21-25); ABG Oxygen Saturation 97.2 % (94-97); ABG PCO2 37 mmHg (35-45); ABG PH 7.41 (7.35-7.45); ABG PO2 89 mmHg (83-108); ABG TCO2 25 mmol/L (19-24); Allen Test Performed? Yes
[2023-08-08] MEDS: FUROSEMIDE 10 MG/ML 4 ML VIAL IV STA (09:58)
[2023-08-08] MEDS: PIPERACILLIN-TAZOBACTAM 3.375 GM in SODIUM CHLORIDE 0.9% 100 ML IVPB SCH (09:58)
--- NOTE | 2023-08-08 11:55 | XR ---
EXAMINATION TYPE: XR chest 1V portable DATE OF EXAM: 08/08/2023 Comparison: 08/07/2023 Clinical History: 43-year-old male Tube placement Findings: ET tube tip at the level of the medial clavicular heads. NG tube courses below the diaphragm. Heart u pper limits of normal in size. Bibasilar opacities persist with partially layered pleural effusions. Impression: Ongoing small to moderate sized partially layering pleural effusions with adjacent atelectasis and/or consolidation.
[2023-08-08] MEDS: METOPROLOL TARTRATE 12.5 MG TAB PO SCH (12:32)
--- NOTE | 2023-08-08 12:54 | P.PN ---
Subjective Progress Note Date: 08/08/23 Principal diagnosis: Acute alcohol withdrawal This is a 43-year-old male patient who resides in the [facility] who had recently been admitted to [facility] for alcohol withdrawal. He was admitting to drinking 1 L of tequila per day. He smokes 2 p acks of cigarettes per day and 1 marijuana joint per day. States his last drink was at noon on the 12th prior to his admission to [place]. He was sent here today by EMS for acute withdrawal syndromedelirium. Chest x-ray revealed no acute pulmonary process. EKG revealed sinus tachycardia. White count 8.3. Hemoglobin 16.3. Platelets 70,000. Sodium 137. Potassium 4.2. Bicarb 29. BUN 22. Creatinine 1.12. AST 164. ALT 140. Lipase 146. Viral screen negative. Since his arrival he has required 10 mg of Ativan. He is still quite restless. Precedex drip was ordered and he will be admitted to the intensive care unit. He is seen today in consultation in the emergency department. He has restless. Walking around in his room. Security is at the bedside. Precedex had not been started yet. He is maintaining O2 saturations in the 90s on room air. He is tachycardic in the 110s, 120s. Blood pressure stable. Afebrile. Patient was reevaluated today on 08/07/2023, patient developed worsening picture of alcohol withdrawal and acute delirium tremens, requiring intubation and mechanical ventilation. He is now on assist-control 18 tidal volume 450 FiO2 35% and PEEP of 5, ABG showed a pO2 of 148 pCO2 34 pH of 7.44 hence his rate was cut down to 16 and his tidal volume kept the same FiO2 down to 35% patient is still requiring significant amount of sedation including propofol at 60 mcg/kg/min, Versed was added this morning mostly because of persistent agitation in spite of propofol on board. CBC is relatively normal basic metabolic profile is normal except for low potassium of 3.3 chest x-ray is showing mostly left basilar atelectasis. Doubt pneumonia. Screening for influenza A B, RSV and COVID-19 all negative patient remains on the CIWA protocol, and spite of being on Precedex yesterday, patient continued to develop alcohol withdrawal requiring intubation mechanical ventilation. Patient was reevaluated today on 08/08/2023, patient remains in the ICU, intub ated and mechanically ventilated. Patient is on assist-control rate of 16 tidal volume 450 FiO2 35% PEEP of 5. Patient is still requiring significant amount of sedation to keep him calm, otherwise he gets agitated, restless, and becomes asynchronous with mechanical ventilation. He is now on propofol at 50 mcg/kg/min and Versed at 15 mg/h. IV fluid is running at 2.9 normal saline 75 cc/h. Chest x-ray is showing more atelectasis, and more pleural effusions, hence I am cutting down his IV fluid to KVO and I am giving him Lasix 40 mg IV push x 1. In addition considering the patient is showing a low-grade temp with a temp of 99 today, I am recommending Zosyn to be started empirically. Patient is a good set up for aspiration pneumonia. And the findings of atelectasis/infiltrates are noted in both lungs today. Left more so than right. Patient is receiving enteral feeding. He is also on GI DVT prophylaxis. His WBC count is 9.9 hemoglobin is 15 electrolytes are normal BUN is normal creatinine is normal, liver enzymes are improving steadily Objective - Vital Signs Vital signs: Vital Signs Temp 99.2 F 08/08/23 12:00 Pulse 134 H 08/08/23 12:00 Resp 28 H 08/08/23 12:00 BP 105/72 08/08/23 12:00 Pulse Ox 94 L 08/08/23 12:00 FiO2 35 08/08/23 12:14 Intake & Output 08/07/23 08/08/23 08/08/23 18:59 06:59 18:59 Intake Total 8274.590 5710.515 1035 Output Total 001 712 2276 Balance 1818.522 6890.515 -590 Weight 71.8 kg 75.8 kg Intake: IV 1175 1300 575 Magnesium Sulfate-D5w Pmx 100 1 gm In Dextrose/Water 1 100ml.bag @ 100 mls/hr IVPB ONCE ONE Rx#: [id number] Potassium Chloride 10 meq 300 200 100 In Water For Injection 1 100ml.bag @ 100 mls/hr IVPB Q1HR JACLYN Rx#: [id number] Sodium Chloride 0.9% 1, 675 900 375 000 ml @ 50 mls/hr IV . Q20H JACLYN Rx#:[id number] Thiamine 500 mg In Sodium 200 100 100 Chloride 0.9% 100 ml @ 200 mls/hr IVPB TID JACLYN Rx#:[id number] Intake, IV Titration 287.769 444.515 250 Amount Midazolam HCl 50 mg In 42.283 149.633 50 Sodium Chloride 0.9% 40 ml @ 1 MG/HR 1 mls/hr IV .Q24H JACLYN Rx#:[id number] Piperacillin-Tazobactam 3 100 .375 gm In Sodium Chloride 0.9% 100 ml @ 25 mls/hr IVPB Q8HR JACLYN Rx# :[id number] propofoL 1,000 mg In 245.486 294.882 100 Empty Bag 1 bag @ 15 MCG/ KG/MIN 6.736 mls/hr IV . [id number] JACLYN Rx#:[id number] Tube Feeding 90 280 150 Other 100 90 60 Output: Urine 377 977 7393 Other: Voiding Method Indwelling Catheter Indwelling Catheter Indwelling Catheter ABP, PAP, CO, CI - Last Documented Arterial Blood Pressure 93/53 - Exam General: Revealed 43-year-old male in no distress intubated mechanically ventilated sedated, on propofol and Versed. Head: Atraumatic, normocephalic. Endotracheal tube and orogastric tube are intact Skin: Skin is warm and dry and no rashes or lesions are noted. Eye: Pupils are equal, round and reactive to light, extra-ocular movements are intact; there is normal conjunctiva bilaterally. Ears, nose, mouth and throat: There are moist mucous membranes and no oral lesions. Neck: The neck is supple, there is no tenderness or JVD. Cardiovascular: There is a regular rate and rhythm. No murmur, rub or gallop is appreciated. Respiratory: Clear bilaterally no crackles rhonchi or wheezes Gastrointestinal: Soft, non-distended, non-tender abdomen without masses or organomegaly noted. There is no rebound or guarding present. Bowel sounds are unremarkable. Neurological: Could not assess patient is fully sedated with the propofol and Versed Psychiatric: Could not assess - Labs CBC & Chem 7: 08/08/23 04:09 08/08/23 04:09 Labs: Abnormal Lab Results - Last 24 Hours (Table) 08/08/23 08/08/23 08/08/23 Range/Units 04:09 04:09 06:26 MCV 104.6 H (80.0-100.0) fL Plt Count 66 L (150-450) k/uL Neutrophils # 8.1 H (1.3-7.7) k/uL Lymphocytes # 0.8 L (1.0-4.8) k/uL ABG Total CO2 25 H (19-24) mmol/L ABG O2 Saturation 97.2 H (94-97) % Chloride 110 H (98-107) mmol/L Creatinine 0.55 L (0.66-1.25) mg/dL Glucose 120 H (74-99) mg/dL AST 122 H (17-59) U/L ALT 125 H (4-49) U/L Total Protein 5.5 L (6.3-8.2) g/dL Albumin 3.2 L (3.5-5.0) g/dL Assessment and Plan Assessment: Impression: Acute alcohol withdrawal Acute delirium tremens Acute respiratory failure secondary to severe alcohol withdrawal requiring intubation mechanical ventilation to protect airways and to prevent harm 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 Prognosis is relatively guarded Patient is critically ill Critical care time is over 30 Time with Patient: Greater than 30
--- NOTE | 2023-08-08 14:02 | P.PN ---
Subjective Progress Note Date: 08/08/23 patient is of 43-year-old gentleman with past medical significant for alcohol abuse who presented to the ER for alcohol detox. Patient was sent to the ER from [place] where he was admitted on Friday for alcohol detox. Patient admits to drinking 1 L of alcohol daily. Denies any use of recreational drugs. Patient stated that he wanted to quit drinking as it was causing problems for his family. Denies any auditory or visualizations. There is no complaint of suicidal thoughts. Patient was being treated with oral Ativan at [place] but patient was getting restless and tachycardic. Patient was also complaining of increased shakiness. There was complaint of nausea and vomiting. Denies a bdominal pain. Denies any chest pain or shortness of breath. Initial lab work done in the ER showed WBC 8.3, hemoglobin 13.3, platelet count 70, sodium 130 potassium 4.2, BUN 22, creatinine 1.12, magnesium 1.4 AST 164, ALT 140 Influenza A not detected Influenza B not detected RSV not detected COVID-19 not detected UA negative for infection EKG done in the ER showed heart rate of 120 , no ST segment elevation or depression seen, no T-wave inversions seen. Chest x-ray done in the ER no acute cardiopulmonary process Patient admitted to internal medicine service 08/07. Patient seen examined. Patient's CIWA scores were high, was started on Precedex drip yesterday afternoon and was transferred to ICU. Patient continued to be agitated, was intubated and placed on propofol and Versed. Currently on vent. 08/08. Patient seen and examined. Continues to be sedated on propofol and Versed. Patient having low-grade fevers, started on IV Zosyn. REVIEW OF SYSTEMS: Cannot be obtained as patient is currently intubated PHYSICAL EXAMINATION: GENERAL: The patient is intubated HEENT: Pupils are round and equally reacting to light. EOMI. No scleral icterus. No conjunctival pallor. Normocephalic, atraumatic. No pharyngeal erythema. No thyromegaly. CARDIOVASCULAR: S1 and S2 present. No murmurs, rubs, or gallops. PULMONARY: Chest is clear to auscultation, no wheezing or crackles. ABDOMEN: Soft, nontender, nondistended, normoactive bowel sounds. No palpable organomegaly. MUSCULOSKELETAL: No joint swelling or deformity. EXTREMITIES: No cyanosis, clubbing, or pedal edema. NEUROLOGICAL: Intubated and sedated. SKIN: No rashes. Assessment and plan Alcohol abuse alcohol detox Hypomagnesemia Thrombocytopenia Alcoholic hepatitis Marijuana use admitting to smoking 1 joint daily Chronic and ongoing tobacco dependence of up to 2 packs/day Monitor vital signs Monitor CBC Monitor CMP Continue telemetry monitoring Continue vent management per ICU Continue propofol and Versed Continue CIWA protocol Start IV Zosyn Started Lopressor 12.5 mg twice a day Continue high-dose thiamine and folic acid Monitor LFTs Continue tube feeding ICU following Labs and medication were reviewed.. Continue same treatment. Continue with symptomatic treatment. Resume home medication. Monitor labs and vitals. DVT and GI prophylaxis. Further recommendations as per clinical course of the patient Dictation was produced using [employer] dictation software. please excuse any grammatical, word or spelling errors. Objective - Vital Signs Vital signs: Vital Signs Temp 99 F 08/08/23 08:00 Pulse 109 H 08/08/23 10:00 Resp 21 08/08/23 10:00 BP 141/99 08/08/23 10:00 Pulse Ox 96 08/08/23 10:00 FiO2 35 08/08/23 08:20 Intake & Output 08/07/23 08/08/23 08/08/23 18:59 06:59 18:59 Intake Total 6786.541 8589.515 745 Output Total 635 620 250 Balance 4142.721 2818.515 495 Weight 71.8 kg 75.8 kg Intake: IV 1175 1300 475 Magnesium Sulfate-D5w Pmx 100 1 gm In Dextrose/Water 1 100ml.bag @ 100 mls/hr IVPB ONCE ONE Rx#: [id number] Potassium Chloride 10 meq 300 200 100 In Water For Injection 1 100ml.bag @ 100 mls/hr IVPB Q1HR JACLYN Rx#: [id number] Sodium Chloride 0.9% 1, 675 900 275 000 ml @ 50 mls/hr IV . Q20H JACLYN Rx#:[id number] Thiamine 500 mg In Sodium 200 100 100 Chloride 0.9% 100 ml @ 200 mls/hr IVPB TID JACLYN Rx#:[id number] Intake, IV Titration 287.769 444.515 150 Amount Midazolam HCl 50 mg In 42.283 149.633 50 Sodium Chloride 0.9% 40 ml @ 1 MG/HR 1 mls/hr IV .Q24H JACLYN Rx#:[id number] Piperacillin-Tazobactam 3 100 .375 gm In Sodium Chloride 0.9% 100 ml @ 25 mls/hr IVPB Q8HR JACLYN Rx# :[id number] propofoL 1,000 mg In 245.486 294.882 Empty Bag 1 bag @ 15 MCG/ KG/MIN 6.736 mls/hr IV . [id number] JACLYN Rx#:[id number] Tube Feeding 90 280 90 Other 100 90 30 Output: Urine 635 620 250 Other: Voiding Method Indwelling Catheter Indwelling Catheter Indwelling Catheter ABP, PAP, CO, CI - Last Documented Arterial Blood Pressure 163/88 - Labs CBC & Chem 7: 08/08/23 04:09 08/08/23 13:12 Labs: Abnormal Lab Results - Last 24 Hours (Table) 08/08/23 08/08/23 08/08/23 Range/Units 04:09 04:09 06:26 MCV 104.6 H (80.0-100.0) fL Plt Count 66 L (150-450) k/uL Neutrophils # 8.1 H (1.3-7.7) k/uL Lymphocytes # 0.8 L (1.0-4.8) k/uL ABG Total CO2 25 H (19-24) mmol/L ABG O2 Saturation 97.2 H (94-97) % Chloride 110 H (98-107) mmol/L Creatinine 0.55 L (0.66-1.25) mg/dL Glucose 120 H (74-99) mg/dL AST 122 H (17-59) U/L ALT 125 H (4-49) U/L Total Protein 5.5 L (6.3-8.2) g/dL Albumin 3.2 L (3.5-5.0) g/dL
[2023-08-08] MEDS: MAGNESIUM SULFATE-D5W PMX 1 GM in DEXTROSE/WATER 1 100ML.BAG IVPB SCH (15:34)
[2023-08-08] MEDS: MIDAZOLAM HCL 200 MG in SODIUM CHLORIDE 0.9% 60 ML IV SCH (19:29)
[2023-08-09 00:51] LABS: Glucose,Whole Blood 121 mg/dL (70-110)
[2023-08-09 05:06] LABS: ABG Base Excess -0.9 mmol/L; ABG HCO3 24 mmol/L (21-25); ABG Oxygen Saturation 96.9 % (94-97); ABG PCO2 36 mmHg (35-45); ABG PH 7.43 (7.35-7.45); ABG PO2 82 mmHg (83-108); ABG TCO2 25 mmol/L (19-24)
[2023-08-09 05:27] LABS: Allen Test Performed? no
[2023-08-09 05:28] LABS: Glucose,Whole Blood 124 mg/dL (70-110)
[2023-08-09 05:45] LABS: Basophils % (A) 0 %; Eosinophils # (A) 0.2 k/uL (0-0.7); Eosinophils % (A) 2 %; HGB 15.3 gm/dL (13.0-17.5); Lymphocytes # (A) 0.8 k/uL (1.0-4.8); Lymphocytes % (A) 6 %; MCH 34.7 pg (25.0-35.0); MCHC 34.1 g/dL (31.0-37.0); MCV 101.9 fL (80.0-100.0); Macrocytosis Slight; Mean Platelet Volume 10.6; Monocytes # (A) 1.1 k/uL (0-1.0); Monocytes % (A) 9 %; Neutrophils # (A) 10.4 k/uL (1.3-7.7); Neutrophils % (A) 81 %; Platelet Count 82 k/uL (150-450); RBC 4.42 m/uL (4.30-5.90); WBC 12.8 k/uL (3.8-10.6)
[2023-08-09 06:47] LABS: African American GFR (CKD) >90 (>60 ml/min/1.73 sqM); Anion Gap 5 mmol/L; Blood Urea Nitrogen 12 mg/dL (9-20); Calcium 8.3 mg/dL (8.4-10.2); Carbon Dioxide 21 mmol/L (22-30); Chloride 110 mmol/L (98-107); Glucose 137 mg/dL (74-99); Magnesium 1.7 mg/dL (1.6-2.3); Non-African American GFR(CKD) >90 (>60 ml/min/1.73 sqM); Potassium 3.3 mmol/L (3.5-5.1); Sodium 136 mmol/L (137-145)
--- NOTE | 2023-08-09 07:05 | XR ---
EXAMINATION TYPE: XR chest 1V portable DATE OF EXAM: 08/09/2023 CLINICAL HISTORY: Difficulty breathing progress study. TECHNIQUE: Single AP portable semiupright view of the chest is obtained. COMPARISON: Chest x-ray from one day earlier and older studies. FINDINGS: Stable endotracheal and orogastric tubes. Persistent bibasilar opacities. Cardiac silhouette size is stable and within normal limits. Osseous s tructures are intact. IMPRESSION: Persistent small bilateral pleural effusions with associated bibasilar acute infiltrates and/or atelectasis. No significant change from one day earlier.
[2023-08-09] MEDS: POTASSIUM BICARBONATE/CIT AC 20 MEQ TABLET.EFF NG-TUBE SCH ×2 (08:44→15:07)
[2023-08-09 12:31] LABS: Glucose,Whole Blood 137 mg/dL (70-110)
--- NOTE | 2023-08-09 12:53 | P.PN ---
Subjective Progress Note Date: 08/09/23 patient is of 43-year-old gentleman with past medical significant for alcohol abuse who presented to the ER for alcohol detox. Patient was sent to the ER from [place] where he was admitted on Friday for alcohol detox. Patient admits to drinking 1 L of alcohol daily. Denies any use of recreational drugs. Patient stated that he wanted to quit drinking as it was causing problems for his family. Denies any auditory or visualizations. There is no complaint of suicidal thoughts. Patient was being treated with oral Ativan at [place] but patient was getting restless and tachycardic. Patient was also complaining of increased shakiness. There was complaint of nausea and vomiting. Denies a bdominal pain. Denies any chest pain or shortness of breath. Initial lab work done in the ER showed WBC 8.3, hemoglobin 13.3, platelet count 70, sodium 130 potassium 4.2, BUN 22, creatinine 1.12, magnesium 1.4 AST 164, ALT 140 Influenza A not detected Influenza B not detected RSV not detected COVID-19 not detected UA negative for infection EKG done in the ER showed heart rate of 120 , no ST segment elevation or depression seen, no T-wave inversions seen. Chest x-ray done in the ER no acute cardiopulmonary process Patient admitted to internal medicine service 08/07. Patient seen examined. Patient's CIWA scores were high, was started on Precedex drip yesterday afternoon and was transferred to ICU. Patient continued to be agitated, was intubated and placed on propofol and Versed. Currently on vent. 08/08. Patient seen and examined. Continues to be sedated on propofol and Versed. Patient having low-grade fevers, started on IV Zosyn. 08/09. Patient seen and examined. Blood work done this morning showed WBC 12.8, hemoglobin 15.3, platelet count 82 sodium 136, potassium 3.3, BUN 12, creatinine 0.64. Patient afebrile overnight. Still tachycardic REVIEW OF SYSTEMS: Cannot be obtained as patient is currently intubated PHYSICAL EXAMINATION: GENERAL: The patient is intubated HEENT: Pupils are round and equally reacting to light. EOMI. No scleral icterus. No conjunctival pallor. Normocephalic, atraumatic. No pharyngeal erythema. No thyromegaly. CARDIOVASCULAR: S1 and S2 present. No murmurs, rubs, or gallops. Tachycardic PULMONARY: Chest is clear to auscultation, no wheezing or crackles. ABDOMEN: Soft, nontender, nondistended, normoactive bowel sounds. No palpable or ganomegaly. MUSCULOSKELETAL: No joint swelling or deformity. EXTREMITIES: No cyanosis, clubbing, or pedal edema. NEUROLOGICAL: Intubated and sedated. SKIN: No rashes. Assessment and plan Alcohol abuse alcohol detox Hypomagnesemia Thrombocytopenia Alcoholic hepatitis Marijuana use admitting to smoking 1 joint daily Chronic and ongoing tobacco dependence of up to 2 packs/day Monitor vital signs Monitor CBC Monitor CMP Continue telemetry monitoring Continue vent management per ICU Continue propofol and Versed Continue CIWA protocol Continue IV Zosyn Continue Lopressor 25 mg twice a day Continue high-dose thiamine and folic acid Monitor LFTs Continue tube feeding ICU following Labs and medication were reviewed.. Continue same treatment. Continue with symptomatic treatment. Resume home medication. Monitor labs and vitals. DVT and GI prophylaxis. Further recommendations as per clinical course of the patient Dictation was produced using [employer] dictation software. please excuse any grammatical, word or spelling errors. Objective - Vital Signs Vital signs: Vital Signs Temp 101.2 F H 08/09/23 00:00 Pulse 122 H 08/09/23 07:00 Resp 27 H 08/09/23 07:00 BP 119/89 08/09/23 07:00 Pulse Ox 93 L 08/09/23 07:00 FiO2 35 08/09/23 07:54 Intake & Output 08/08/23 08/09/23 08/09/23 18:59 06:59 18:59 Intake Total 2232.5 1131.924 149.375 Output Total 1925 524 40 Balance 307.5 607.924 109.375 Weight 75.8 kg 78 kg Intake: IV 975 600 50 Potassium Chloride 10 meq 100 In Water For Injection 1 100ml.bag @ 100 mls/hr IVPB Q1HR JACLYN Rx#: [id number] Sodium Chloride 0.9% 1, 675 600 50 000 ml @ 50 mls/hr IV . Q20H JACLYN Rx#:[id number] Thiamine 500 mg In Sodium 200 Chloride 0.9% 100 ml @ 200 mls/hr IVPB TID JACLYN Rx#:[id number] Intake, IV Titration 747.5 315.924 99.375 Amount Midazolam HCl 200 mg In 99.375 Sodium Chloride 0.9% 60 ml @ 1 MG/HR 0.5 mls/hr IV .Q24H JACLYN Rx#: [id number] Midazolam HCl 50 mg In 147.5 Sodium Chloride 0.9% 40 ml @ 1 MG/HR 1 mls/hr IV .Q24H [facility]ACLYN Rx#:[id number] Piperacillin-Tazobactam 3 200 .375 gm In Sodium Chloride 0.9% 100 ml @ 25 mls/hr IVPB Q8HR [facility]AC[facility]N Rx# :[id number] Potassium Chloride 10 meq 200 In Water For Injection 1 100ml.bag @ 100 mls/hr IVPB Q1H JACLYN Rx#: [id number] propofoL 1,000 mg In 200 315.924 Empty Bag 1 bag @ 15 MCG/ KG/MIN 6.736 mls/hr IV . [id number] JACLYN Rx#:[id number] Tube Feeding 390 186 Other 120 30 Output: Urine 1925 524 40 Other: Voiding Method Indwelling Catheter Indwelling Catheter ABP, PAP, CO, CI - Last Documented Arterial Blood Pressure 114/65 - Labs CBC & Chem 7: 08/09/23 05:27 08/09/23 05:27 Labs: Abnormal Lab Results - Last 24 Hours (Table) 08/09/23 08/09/23 08/09/23 Range/Units 00:48 05:05 05:27 WBC (3.8-10.6) k/uL MCV (80.0-100.0) fL Plt Count (150-450) k/uL Neutrophils # (1.3-7.7) k/uL Lymphocytes # (1.0-4.8) k/uL Monocytes # (0-1.0) k/uL ABG pO2 82 L (83-108) mmHg ABG Total CO2 25 H (19-24) mmol/L Sodium 136 L (137-145) mmol/L Potassium 3.3 L (3.5-5.1) mmol/L Chloride 110 H (98-107) mmol/L Carbon Dioxide 21 L (22-30) mmol/L Creatinine 0.64 L (0.66-1.25) mg/dL Glucose 137 H (74-99) mg/dL POC Glucose (mg/dL) 121 H (70-110) mg/dL Calcium 8.3 L (8.4-10.2) mg/dL 08/09/23 08/09/23 Range/Units 05:27 05:27 WBC 12.8 H (3.8-10.6) k/uL MCV 101.9 H (80.0-100.0) fL Plt Count 82 L (150-450) k/uL Neutrophils # 10.4 H (1.3-7.7) k/uL Lymphocytes # 0.8 L (1.0-4.8) k/uL Monocytes # 1.1 H (0-1.0) k/uL ABG pO2 (83-108) mmHg ABG Total CO2 (19-24) mmol/L Sodium (137-145) mmol/L Potassium (3.5-5.1) mmol/L Chloride (98-107) mmol/L Carbon Dioxide (22-30) mmol/L Creatinine (0.66-1.25) mg/dL Glucose (74-99) mg/dL POC Glucose (mg/dL) 124 H (70-110) mg/dL Calcium (8.4-10.2) mg/dL Microbiology - Last 24 Hours (Table) 08/07/23 00:45 Sputum Culture - Preliminary Sputum
--- NOTE | 2023-08-09 13:53 | P.PN ---
Subjective Progress Note Date: 08/09/23 Principal diagnosis: Acute alcohol withdrawal This is a 43-year-old male patient who resides in the [facility] who had recently been admitted to [facility] for alcohol withdrawal. He was admitting to drinking 1 L of tequila per day. He smokes 2 p acks of cigarettes per day and 1 marijuana joint per day. States his last drink was at noon on the 12th prior to his admission to [place]. He was sent here today by EMS for acute withdrawal syndromedelirium. Chest x-ray revealed no acute pulmonary process. EKG revealed sinus tachycardia. White count 8.3. Hemoglobin 16.3. Platelets 70,000. Sodium 137. Potassium 4.2. Bicarb 29. BUN 22. Creatinine 1.12. AST 164. ALT 140. Lipase 146. Viral screen negative. Since his arrival he has required 10 mg of Ativan. He is still quite restless. Precedex drip was ordered and he will be admitted to the intensive care unit. He is seen today in consultation in the emergency department. He has restless. Walking around in his room. Security is at the bedside. Precedex had not been started yet. He is maintaining O2 saturations in the 90s on room air. He is tachycardic in the 110s, 120s. Blood pressure stable. Afebrile. Patient was reevaluated today on 08/07/2023, patient developed worsening picture of alcohol withdrawal and acute delirium tremens, requiring intubation and mechanical ventilation. He is now on assist-control 18 tidal volume 450 FiO2 35% and PEEP of 5, ABG showed a pO2 of 148 pCO2 34 pH of 7.44 hence his rate was cut down to 16 and his tidal volume kept the same FiO2 down to 35% patient is still requiring significant amount of sedation including propofol at 60 mcg/kg/min, Versed was added this morning mostly because of persistent agitation in spite of propofol on board. CBC is relatively normal basic metabolic profile is normal except for low potassium of 3.3 chest x-ray is showing mostly left basilar atelectasis. Doubt pneumonia. Screening for influenza A B, RSV and COVID-19 all negative patient remains on the CIWA protocol, and spite of being on Precedex yesterday, patient continued to develop alcohol withdrawal requiring intubation mechanical ventilation. Patient was reevaluated today on 08/08/2023, patient remains in the ICU, intub ated and mechanically ventilated. Patient is on assist-control rate of 16 tidal volume 450 FiO2 35% PEEP of 5. Patient is still requiring significant amount of sedation to keep him calm, otherwise he gets agitated, restless, and becomes asynchronous with mechanical ventilation. He is now on propofol at 50 mcg/kg/min and Versed at 15 mg/h. IV fluid is running at 2.9 normal saline 75 cc/h. Chest x-ray is showing more atelectasis, and more pleural effusions, hence I am cutting down his IV fluid to KVO and I am giving him Lasix 40 mg IV push x 1. In addition considering the patient is showing a low-grade temp with a temp of 99 today, I am recommending Zosyn to be started empirically. Patient is a good set up for aspiration pneumonia. And the findings of atelectasis/infiltrates are noted in both lungs today. Left more so than right. Patient is receiving enteral feeding. He is also on GI DVT prophylaxis. His WBC count is 9.9 hemoglobin is 15 electrolytes are normal BUN is normal creatinine is normal, liver enzymes are improving steadily Patient was reevaluated today on 08/09/2023, patient remains in the ICU intubated and mechanically ventilated on assist-control rate of 16 tidal volume 450 FiO2 35% PEEP of 5 ABG showed a pO2 of 82 pCO2 36 pH of 7.43. Patient continues to r equire significant amount of sedation including propofol at 50 mcg/kg/min Versed at 15 mg/h. Patient is also 1.9 normal saline at 75 cc/h and receiving vital HP. Empirically the patient is on Zosyn, endotracheal tube seems to be high, and this will be advanced down 3 cm today. Chest x-ray continues to show some atelectasis and opacities at the bases especially at the left base, patient is empirically on Zosyn. WBC count is 12.8 hemoglobin 15.3. Basic metabolic profile is normal bicarb is 21 renal profile is normal Objective - Vital Signs Vital signs: Vital Signs Temp 98.7 F 08/09/23 12:00 Pulse 105 H 08/09/23 13:00 Resp 19 08/09/23 13:00 BP 115/78 08/09/23 09:00 Pulse Ox 94 L 08/09/23 13:00 FiO2 35 08/09/23 12:00 Intake & Output 08/08/23 08/09/23 08/09/23 18:59 06:59 18:59 Intake Total 2232.5 1131.924 599.375 Output Total 1925 524 195 Balance 307.5 607.924 404.375 Weight 75.8 kg 78 kg Intake: IV 975 600 400 Piperacillin-Tazobactam 3 100 .375 gm In Sodium Chloride 0.9% 100 ml @ 25 mls/hr IVPB Q8HR [facility] Rx# :[id number] Potassium Chloride 10 meq 100 In Water For Injection 1 100ml.bag @ 100 mls/hr IVPB Q1HR [facility] Rx#: [id number] Sodium Chloride 0.9% 1, 675 600 300 000 ml @ 50 mls/hr IV . Q20H [facility] Rx#:[id number] Thiamine 500 mg In Sodium 200 Chloride 0.9% 100 ml @ 200 mls/hr IVPB TID [facility] Rx#:[id number] Intake, IV Titration 747.5 315.924 199.375 Amount Midazolam HCl 200 mg In 99.375 Sodium Chloride 0.9% 60 ml @ 1 MG/HR 0.5 mls/hr IV .Q24H [facility] Rx#: [id number] Midazolam HCl 50 mg In 147.5 Sodium Chloride 0.9% 40 ml @ 1 MG/HR 1 mls/hr IV .Q24H [facility] Rx#:[id number] Piperacillin-Tazobactam 3 200 .375 gm In Sodium Chloride 0.9% 100 ml @ 25 mls/hr IVPB Q8HR [facility] Rx# :[id number] Potassium Chloride 10 meq 200 In Water For Injection 1 100ml.bag @ 100 mls/hr IVPB Q1H [facility] Rx#: [id number] propofoL 1,000 mg In 200 315.924 100 Empty Bag 1 bag @ 15 MCG/ KG/MIN 6.736 mls/hr IV . [id number] [facility] Rx#:[id number] Tube Feeding 390 186 Other 120 30 Output: Urine 1925 524 195 Other: Voiding Method Indwelling Catheter Indwelling Catheter Indwelling Catheter ABP, PAP, CO, CI - Last Documented Arterial Blood Pressure 99/58 - Exam General: Revealed 43-year-old male in no distress intubated mechanically ventilated sedated, on propofol and Versed. Head: Atraumatic, normocephalic. Endotracheal tube and orogastric tube are intact Skin: Skin is warm and dry and no rashes or lesions are noted. Eye: Pupils are equal, round and reactive to light, extra-ocular movements are intact; there is normal conjunctiva bilaterally. Ears, nose, mouth and throat: There are moist mucous membranes and no oral lesions. Neck: The neck is supple, there is no tenderness or JVD. Cardiovascular: There is a regular rate and rhythm. No murmur, rub or gallop is appreciated. Respiratory: Clear bilaterally no crackles rhonchi or wheezes Gastrointestinal: Soft, non-distended, non-tender abdomen without masses or organomegaly noted. There is no rebound or guarding present. Bowel sounds are unremarkable. Neurological: Could not assess patient is fully sedated with the propofol and Versed Psychiatric: Could not assess - Labs CBC & Chem 7: 08/09/23 05:27 08/09/23 05:27 Labs: Abnormal Lab Results - Last 24 Hours (Table) 08/09/23 08/09/23 08/09/23 Range/Units 00:48 05:05 05:27 WBC (3.8-10.6) k/uL MCV (80.0-100.0) fL Plt Count (150-450) k/uL Neutrophils # (1.3-7.7) k/uL Lymphocytes # (1.0-4.8) k/uL Monocytes # (0-1.0) k/uL ABG pO2 82 L (83-108) mmHg ABG Total CO2 25 H (19-24) mmol/L Sodium 136 L (137-145) mmol/L Potassium 3.3 L (3.5-5.1) mmol/L Chloride 110 H (98-107) mmol/L Carbon Dioxide 21 L (22-30) mmol/L Creatinine 0.64 L (0.66-1.25) mg/dL Glucose 137 H (74-99) mg/dL POC Glucose (mg/dL) 121 H (70-110) mg/dL Calcium 8.3 L (8.4-10.2) mg/dL 08/09/23 08/09/23 08/09/23 Range/Units 05:27 05:27 12:29 WBC 12.8 H (3.8-10.6) k/uL MCV 101.9 H (80.0-100.0) fL Plt Count 82 L (150-450) k/uL Neutrophils # 10.4 H (1.3-7.7) k/uL Lymphocytes # 0.8 L (1.0-4.8) k/uL Monocytes # 1.1 H (0-1.0) k/uL ABG pO2 (83-108) mmHg ABG Total CO2 (19-24) mmol/L Sodium (137-145) mmol/L Potassium (3.5-5.1) mmol/L Chloride (98-107) mmol/L Carbon Dioxide (22-30) mmol/L Creatinine (0.66-1.25) mg/dL Glucose (74-99) mg/dL POC Glucose (mg/dL) 124 H 137 H (70-110) mg/dL Calcium (8.4-10.2) mg/dL Microbiology - Last 24 Hours (Table) 08/07/23 00:45 Gram Stain - Final Sputum Sputum Culture - Final Assessment and Plan Assessment: Impression: Acute alcohol withdrawal Acute delirium tremens Acute respiratory failure secondary to severe alcohol withdrawal requiring intubation mechanical ventilation to protect airways and to prevent harm 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 Patient is critically ill Critical care time is over 30 Time with Patient: Greater than 30
[2023-08-09] MEDS ORDERED: POTASSIUM CHLORIDE ER 20 MEQ TAB.ER PO SCH (15:00)
[2023-08-09 18:24] LABS: Glucose,Whole Blood 104 mg/dL (70-110)
[2023-08-09] MEDS: METOPROLOL TARTRATE 25 MG TAB PO SCH (20:14)
[2023-08-10 00:37] LABS: Glucose,Whole Blood 116 mg/dL (70-110)
[2023-08-10 03:35] LABS: Basophils % (A) 0 %; Eosinophils # (A) 0.3 k/uL (0-0.7); Eosinophils % (A) 2 %; HCT 42.9 % (39.0-53.0); HGB 14.6 gm/dL (13.0-17.5); Lymphocytes % (A) 8 %; MCH 34.9 pg (25.0-35.0); MCHC 33.9 g/dL (31.0-37.0); MCV 102.9 fL (80.0-100.0); Macrocytosis Slight; Mean Platelet Volume 10.5; Monocytes # (A) 1.7 k/uL (0-1.0); Monocytes % (A) 14 %; Neutrophils # (A) 8.9 k/uL (1.3-7.7); Neutrophils % (A) 73 %; RBC 4.17 m/uL (4.30-5.90); RDW 13.3 % (11.5-15.5); WBC 12.3 k/uL (3.8-10.6)
[2023-08-10 03:39] LABS: Platelet Count 99 k/uL (150-450)
[2023-08-10 04:02] LABS: ALT 45 U/L (4-49); AST 29 U/L (17-59); African American GFR (CKD) >90 (>60 ml/min/1.73 sqM); Albumin 2.6 g/dL (3.5-5.0); Alkaline Phosphatase 59 U/L (38-126); Anion Gap 4 mmol/L; Blood Urea Nitrogen 13 mg/dL (9-20); Calcium 8.3 mg/dL (8.4-10.2); Carbon Dioxide 24 mmol/L (22-30); Chloride 111 mmol/L (98-107); Glucose 125 mg/dL (74-99); Magnesium 1.7 mg/dL (1.6-2.3); Non-African American GFR(CKD) >90 (>60 ml/min/1.73 sqM); Potassium 3.8 mmol/L (3.5-5.1); Sodium 139 mmol/L (137-145); Total Bilirubin 0.5 mg/dL (0.2-1.3)
[2023-08-10] MEDS ORDERED: Magnesium Replacement Protocol 1 EACH MISC MISCELLANE PRN (04:52)
[2023-08-10] MEDS: MAGNESIUM SULFATE-D5W PMX 1 GM in DEXTROSE/WATER 1 100ML.BAG IVPB ONE (05:14)
[2023-08-10] MEDS: POTASSIUM BICARBONATE/CIT AC 20 MEQ TABLET.EFF NG-TUBE SCH (05:14)
[2023-08-10 05:20] LABS: ABG HCO3 24 mmol/L (21-25); ABG Oxygen Saturation 94.4 % (94-97); ABG PCO2 38 mmHg (35-45); ABG PH 7.42 (7.35-7.45); ABG PO2 71 mmHg (83-108); ABG TCO2 26 mmol/L (19-24)
[2023-08-10 05:26] LABS: Allen Test Performed? no
[2023-08-10 06:32] LABS: Glucose,Whole Blood 109 mg/dL (70-110)
--- NOTE | 2023-08-10 07:12 | XR ---
EXAMINATION TYPE: XR chest 1V portable DATE OF EXAM: 08/10/2023 6:06 AM CLINICAL INDICATION:Male, 43 years old with history of ET Tube Placement, Pneumonia; PH[facility] COMPARISON: Chest radiographs from 08/09/2023. TECHNIQUE: XR chest 1V portable Frontal view of the chest. FINDINGS: Lungs/Pleura: There is no evidence of pleural effusion, focal consolidation, or pneumothorax. Pulmonary vascularity: Unremarkable. Heart/mediastinum: Cardiomediastinal silhouette is unremarkable. Musculoskeletal: No acute osseous pathology. Other findings: None Lines/Tubes: Endotracheal tube with distal tip 4.4 cm above the fabio. Nasogastric tube with its distal tip and side-port projecting under the diaphragm. IMPRESSION: No acute cardiopulmonary disease/process.
[2023-08-10] MEDS: CISATRACURIUM 2 MG/ML 5 ML VIAL IV ONE (09:21)
--- NOTE | 2023-08-10 12:27 | P.PN ---
Subjective Progress Note Date: 08/10/23 patient is of 43-year-old gentleman with past medical significant for alcohol abuse who presented to the ER for alcohol detox. Patient was sent to the ER from [place] where he was admitted on Friday for alcohol detox. Patient admits to drinking 1 L of alcohol daily. Denies any use of recreational drugs. Patient stated that he wanted to quit drinking as it was causing problems for his family. Denies any auditory or visualizations. There is no complaint of suicidal thoughts. Patient was being treated with oral Ativan at [place] but patient was getting restless and tachycardic. Patient was also complaining of increased shakiness. There was complaint of nausea and vomiting. Denies a bdominal pain. Denies any chest pain or shortness of breath. Initial lab work done in the ER showed WBC 8.3, hemoglobin 13.3, platelet count 70, sodium 130 potassium 4.2, BUN 22, creatinine 1.12, magnesium 1.4 AST 164, ALT 140 Influenza A not detected Influenza B not detected RSV not detected COVID-19 not detected UA negative for infection EKG done in the ER showed heart rate of 120 , no ST segment elevation or depression seen, no T-wave inversions seen. Chest x-ray done in the ER no acute cardiopulmonary process Patient admitted to internal medicine service 08/07. Patient seen examined. Patient's CIWA scores were high, was started on Precedex drip yesterday afternoon and was transferred to ICU. Patient continued to be agitated, was intubated and placed on propofol and Versed. Currently on vent. 08/08. Patient seen and examined. Continues to be sedated on propofol and Versed. Patient having low-grade fevers, started on IV Zosyn. 08/09. Patient seen and examined. Blood work done this morning showed WBC 12.8, hemoglobin 15.3, platelet count 82 sodium 136, potassium 3.3, BUN 12, creatinine 0.64. Patient afebrile overnight. Still tachycardic 08/10. Patient seen and examined. Lab work done this morning showed WBC 12.3, hemoglobin 14.6, platelet count 99, sodium 110, potassium 3.8, BUN 13, creatinine 0.59,. Continues to be intubated and sedated REVIEW OF SYSTEMS: Cannot be obtained as patient is currently intubated PHYSICAL EXAMINATION: GENERAL: The patient is intubated HEENT: Pupils are round and equally reacting to light. EOMI. No scleral icterus. No conjunctival pallor. Normocephalic, atraumatic. No pharyngeal erythema. No thyromegaly. CARDIOVASCULAR: S1 and S2 present. No murmurs, rubs, or gallops. Tachycardic PULMONARY: Chest is clear to auscultation, no wheezing or crackles. ABDOMEN: Soft, nontender, nondistended, normoactive bowel sounds. No palpable organomegaly. MUSCULOSKELETAL: No joint swelling or deformity. EXTREMITIES: No cyanosis, clubbing, or pedal edema. NEUROLOGICAL: Intubated and sedated. SKIN: No rashes. Assessment and plan Alcohol abuse alcohol detox Hypomagnesemia Thrombocytopenia Alcoholic hepatitis Marijuana use admitting to smoking 1 joint daily Chronic and ongoing tobacco dependence of up to 2 packs/day Monitor vital signs Monitor CBC Monitor CMP Continue telemetry monitoring Continue vent management per ICU Continue propofol and Versed Continue CIWA protocol Continue IV Zosyn Continue Lopressor 25 mg twice a day Continue high-dose thiamine and folic acid Monitor LFTs Continue tube feeding ICU following Labs and medication were reviewed.. Continue same treatment. Continue with symptomatic treatment. Resume home medication. Monitor labs and vitals. DVT and GI prophylaxis. Further recommendations as per clinical course of the patient Dictation was produced using [employer] dictation software. please excuse any grammatical, word or spelling errors. Objective - Vital Signs Vital signs: Vital Signs Temp 100.0 F H 08/10/23 08:00 Pulse 106 H 08/10/23 09:00 Resp 24 08/10/23 09:00 BP 112/80 08/10/23 02:00 Pulse Ox 94 L 08/10/23 09:00 FiO2 50 08/10/23 08:00 Intake & Output 08/09/23 08/10/23 08/10/23 18:59 06:59 18:59 Intake Total 7842.057 8791.050 441.18 Output Total 645 875 225 Balance 867.772 896.050 216.18 Intake: IV 850 783 159 Piperacillin-Tazobactam 3 200 100 .375 gm In Sodium Chloride 0.9% 100 ml @ 25 mls/hr IVPB Q8HR [facility] Rx# :[id number] Pressure Bag 33 9 Sodium Chloride 0.9% 1, 650 550 150 000 ml @ 50 mls/hr IV . Q20H [facility] Rx#:[id number] Thiamine 500 mg In Sodium 100 Chloride 0.9% 100 ml @ 200 mls/hr IVPB TID [facility] Rx#:[id number] Intake, IV Titration 367.772 315.050 93.18 Amount Midazolam HCl 200 mg In 99.375 115.050 Sodium Chloride 0.9% 60 ml @ 1 MG/HR 0.5 mls/hr IV .Q24H [facility] Rx#: [id number] propofoL 1,000 mg In 268.397 200.000 93.18 Empty Bag 1 bag @ 15 MCG/ KG/MIN 6.736 mls/hr IV . [id number] [facility] Rx#:[id number] Tube Feeding 265 583 159 Other 30 90 30 Output: Urine 645 875 225 Other: Voiding Method Indwelling Catheter Indwelling Catheter ABP, PAP, CO, CI - Last Documented Arterial Blood Pressure 130/66 - Labs CBC & Chem 7: 08/10/23 03:24 08/10/23 03:24 Labs: Abnormal Lab Results - Last 24 Hours (Table) 08/09/23 08/10/23 08/10/23 Range/Units 12:29 00:35 03:24 WBC 12.3 H (3.8-10.6) k/uL RBC 4.17 L (4.30-5.90) m/uL MCV 102.9 H (80.0-100.0) fL Plt Count 99 L (150-450) k/uL Neutrophils # 8.9 H (1.3-7.7) k/uL Monocytes # 1.7 H (0-1.0) k/uL ABG pO2 (83-108) mmHg ABG Total CO2 (19-24) mmol/L Chloride (98-107) mmol/L Creatinine (0.66-1.25) mg/dL Glucose (74-99) mg/dL POC Glucose (mg/dL) 137 H 116 H (70-110) mg/dL Calcium (8.4-10.2) mg/dL Total Protein (6.3-8.2) g/dL Albumin (3.5-5.0) g/dL 08/10/23 08/10/23 Range/Units 03:24 05:19 WBC (3.8-10.6) k/uL RBC (4.30-5.90) m/uL MCV (80.0-100.0) fL Plt Count (150-450) k/uL Neutrophils # (1.3-7.7) k/uL Monocytes # (0-1.0) k/uL ABG pO2 71 L (83-108) mmHg ABG Total CO2 26 H (19-24) mmol/L Chloride 111 H (98-107) mmol/L Creatinine 0.59 L (0.66-1.25) mg/dL Glucose 125 H (74-99) mg/dL POC Glucose (mg/dL) (70-110) mg/dL Calcium 8.3 L (8.4-10.2) mg/dL Total Protein 5.0 L (6.3-8.2) g/dL Albumin 2.6 L (3.5-5.0) g/dL Microbiology - Last 24 Hours (Table) 08/07/23 00:45 Gram Stain - Final Sputum Sputum Culture - Final
--- NOTE | 2023-08-10 12:31 | PCN ---
PROCEDURE NOTE PROCEDURE: Bronchoscopy and bronchoalveolar lavage of the right lower lobe and left lower lobe. PREOPERATIVE DIAGNOSES: Acute hypoxic respiratory failure, left lower lobe pneumonia, and excessive purulent secretions through the endotracheal tube. POSTOPERATIVE DIAGNOSES: Acute hypoxic respiratory failure, left lower lobe pneumonia, and excessive purulent secretions through the endotracheal tube. ANESTHESIA USED: The patient was already on propofol and Versed drip, and prior to the bronchoscopy, the patient was given 10 mg of Nimbex IV push. PROCEDURE IN DETAIL: The patient was placed in a supine position, he was already intubated and mechanically ventilated, and he was already being monitored via pulse oximetry, and arterial line was already in place, and cardiac rhythm was continuously monitored. After adequate sedation, the bronchoscope was advanced through the adapter of the endotracheal tube down to the distal trachea. Examination was done of the trachea, right upper lobe, right middle lobe, right lower lobe, left upper lobe, lingula, and left lower lobe. There was evidence of whitish and purulent secretions noted, mostly in the right lower lobe and in the left lower lobe. Bronchoalveolar lavage was done of both lobes, fluid was suctioned easily, and the fluid was sent for different diagnostic studies. Procedure was well tolerated, no complications. MMODL / IJN: [id number] /
[2023-08-10 13:37] LABS: Glucose,Whole Blood 103 mg/dL (70-110)
[2023-08-10 18:19] LABS: Glucose,Whole Blood 92 mg/dL (70-110)
[2023-08-10 19:33] LABS: Appearance,BF Turbid (Clear); RBC, Body Fluid 500 /UL (0-2000)
[2023-08-10 23:43] LABS: Glucose,Whole Blood 112 mg/dL (70-110)
[2023-08-11 03:43] LABS: African American GFR (CKD) >90 (>60 ml/min/1.73 sqM); Anion Gap 4 mmol/L; Blood Urea Nitrogen 12 mg/dL (9-20); Calcium 8.4 mg/dL (8.4-10.2); Carbon Dioxide 23 mmol/L (22-30); Chloride 111 mmol/L (98-107); Glucose 126 mg/dL (74-99); Magnesium 1.9 mg/dL (1.6-2.3); Non-African American GFR(CKD) >90 (>60 ml/min/1.73 sqM); Potassium 3.9 mmol/L (3.5-5.1); Sodium 138 mmol/L (137-145)
[2023-08-11 03:44] LABS: Basophils # (A) 0.1 k/uL (0-0.2); Basophils % (A) 0 %; Eosinophils # (A) 0.3 k/uL (0-0.7); Eosinophils % (A) 2 %; HGB 13.5 gm/dL (13.0-17.5); Lymphocytes # (A) 0.9 k/uL (1.0-4.8); Lymphocytes % (A) 8 %; MCH 34.3 pg (25.0-35.0); MCV 103.9 fL (80.0-100.0); Macrocytosis Slight; Mean Platelet Volume 9.5; Monocytes # (A) 1.7 k/uL (0-1.0); Monocytes % (A) 15 %; Neutrophils % (A) 70 %; RBC 3.94 m/uL (4.30-5.90); RDW 13.5 % (11.5-15.5); WBC 11.4 k/uL (3.8-10.6)
[2023-08-11 03:46] LABS: Platelet Count 152 k/uL (150-450)
[2023-08-11] MEDS: POTASSIUM BICARBONATE/CIT AC 20 MEQ TABLET.EFF NG-TUBE SCH (04:23)
[2023-08-11] MEDS: MAGNESIUM SULFATE-D5W PMX 1 GM in DEXTROSE/WATER 1 100ML.BAG IVPB ONE (04:24)
[2023-08-11 06:16] LABS: ABG Base Excess 1.8 mmol/L; ABG HCO3 26 mmol/L (21-25); ABG Oxygen Saturation 96.1 % (94-97); ABG PCO2 37 mmHg (35-45); ABG PH 7.45 (7.35-7.45); ABG PO2 79 mmHg (83-108); ABG TCO2 27 mmol/L (19-24); Allen Test Performed? Yes
[2023-08-11 06:50] LABS: Glucose,Whole Blood 114 mg/dL (70-110)
--- NOTE | 2023-08-11 07:48 | XR ---
EXAMINATION TYPE: XR chest 1V portable DATE OF EXAM: 08/11/2023 Comparison: 08/10/2023 Clinical History: 43-year-old male mechanical ventilation; left lower lobe pneumonia Findings: Heart upper limits of normal in size. ET tube tip 2.8 cm from the faibo. NG tube courses below the d iaphragm. Ongoing small effusions with focal bibasilar opacities. Impression: Ongoing small pleural effusions with focal bibasilar areas of atelectasis and/or consolidation.
[2023-08-11] MEDS: QUEtiapine 100 MG TAB PO SCH (10:17)
[2023-08-11 11:17] LABS: Nucleated Cells, Body Fluid 32500 /UL
--- NOTE | 2023-08-11 11:43 | P.PN ---
Subjective Progress Note Date: 08/11/23 Principal diagnosis: Respiratory failure. Acute alcohol withdrawal This is a 43-year-old male patient who resides in the [place] area who had recently been admitted to [facility] for alcohol withdrawal. He was admitting to drinking 1 L of tequila per day. He smokes 2 packs of cigarettes per day and 1 marijuana joint per day. States his last dri nk was at noon on the 12th prior to his admission to [facility]. He was sent here today by EMS for acute withdrawal syndromedelirium. Chest x-ray revealed no acute pulmonary process. EKG revealed sinus tachycardia. White count 8.3. Hemoglobin 16.3. Platelets 70,000. Sodium 137. Potassium 4.2. Bicarb 29. BUN 22. Creatinine 1.12. AST 164. ALT 140. Lipase 146. Viral screen negative. Since his arrival he has required 10 mg of Ativan. He is still quite restless. Precedex drip was ordered and he will be admitted to the intensive care unit. He is seen today in consultation in the emergency department. He has restless. Walking around in his room. Security is at the bedside. Precedex had not been started yet. He is maintaining O2 saturations in the 90s on room air. He is tachycardic in the 110s, 120s. Blood pressure stable. Afebrile. Patient was reevaluated today on 08/07/2023, patient developed worsening picture of alcohol withdrawal and acute delirium tremens, requiring intubation and mechanical ventilation. He is now on assist-control 18 tidal volume 450 FiO2 35% and PEEP of 5, ABG showed a pO2 of 148 pCO2 34 pH of 7.44 hence his rate was cut down to 16 and his tidal volume kept the same FiO2 down to 35% patient is still requiring significant amount of sedation including propofol at 60 mcg/kg/min, Versed was added this morning mostly because of persistent agitation in spite of propofol on board. CBC is relatively normal basic metabolic profile is normal except for low potassium of 3.3 chest x-ray is showing mostly left basilar atelectasis. Doubt pneumonia. Screening for influenza A B, RSV and COVID-19 all negative patient remains on the CIWA protocol, and spite of being on Precedex yesterday, patient continued to develop alcohol withdrawal requiring intubation mechanical ventilation. Patient was reevaluated today on 08/08/2023, patient remains in the ICU, intubated and mechanically ventilated. Patient is on assist-control rate of 16 tidal volume 450 FiO2 35% PEEP of 5. Patient is still requiring significant amount of sedation to keep him calm, otherwise he gets agitated, restless, and becomes asynchronous with mechanical ventilation. He is now on propofol at 50 mcg/kg/min and Versed at 15 mg/h. IV fluid is running at 2.9 normal saline 75 cc/h. Chest x-ray is showing more atelectasis, and more pleural effusions, hence I am cutting down his IV fluid to KVO and I am giving him Lasix 40 mg IV push x 1. In addition considering the patient is showing a low-grade temp with a temp of 99 today, I am recommending Zosyn to be started empirically. Patient is a good set up for aspiration pneumonia. And the findings of atelectasi s/infiltrates are noted in both lungs today. Left more so than right. Patient is receiving enteral feeding. He is also on GI DVT prophylaxis. His WBC count is 9.9 hemoglobin is 15 electrolytes are normal BUN is normal creatinine is normal, liver enzymes are improving steadily Patient was reevaluated today on 08/09/2023, patient remains in the ICU intubated and mechanically ventilated on assist-control rate of 16 tidal volume 450 FiO2 35% PEEP of 5 ABG showed a pO2 of 82 pCO2 36 pH of 7.43. Patient continues to require significant amount of sedation including propofol at 50 mcg/kg/min Vers ed at 15 mg/h. Patient is also 1.9 normal saline at 75 cc/h and receiving vital HP. Empirically the patient is on Zosyn, endotracheal tube seems to be high, and this will be advanced down 3 cm today. Chest x-ray continues to show some atelectasis and opacities at the bases especially at the left base, patient is empirically on Zosyn. WBC count is 12.8 hemoglobin 15.3. Basic metabolic profile is normal bicarb is 21 renal profile is normal Progress note dated August 11, 2023. The patient was seen today in room 266. The patient continues on mechanical ventilation. He is on volume assist-control, rate 16, tidal volume 500, FiO2 50%, PEEP of 5. Blood gases show pO2 79, pCO2 37, pH is 7.45. The patient continues on propofol at 50 mcg/kg/min, Versed at 50 mg an hour, and saline at 50 cc an hour. The patient is receiving vital high-protein at 53 cc an hour. The patient was admitted to the hospital on August 06, and was intubated the following day on the . Today, we will attempt a daily interruption of sedation. In addition, the patient will have some Haldol, and Seroquel, added to his regimen, for additional sedation. White count 11.4, hemoglobin 13.5, hematocrit 41, with a normal platelet count. Sodium 138, potassium 3.9, chlorides 111, CO2 23, BUN 12, creatinine 0.57. Glucose is 114. Magnesium 1.9. Objective - Vital Signs Vital signs: Vital Signs Temp 99.4 F 08/11/23 09:30 Pulse 90 08/11/23 11:00 Resp 16 08/11/23 11:00 BP 112/80 08/10/23 02:00 Pulse Ox 94 L 08/11/23 11:00 FiO2 50 08/11/23 11:22 Intake & Output 08/10/23 08/11/23 08/11/23 18:59 06:59 18:59 Intake Total 7333.867 2089.097 734.141 Output Total 895 950 460 Balance 938.055 824.097 274.141 Weight 79.2 kg 79.2 kg Intake: IV 836 786 265 Piperacillin-Tazobactam 3 200 100 .375 gm In Sodium Chloride 0.9% 100 ml @ 25 mls/hr IVPB Q8HR [facility] Rx# :[id number] Pressure Bag 36 36 15 Sodium Chloride 0.9% 1, 400 550 250 000 ml @ 50 mls/hr IV . Q20H [facility] Rx#:[id number] Thiamine 500 mg In Sodium 200 100 Chloride 0.9% 100 ml @ 200 mls/hr IVPB TID [facility] Rx#:[id number] Intake, IV Titration 271.055 262.097 227.141 Amount Midazolam HCl 200 mg In 77.875 89.125 95.258 Sodium Chloride 0.9% 60 ml @ 1 MG/HR 0.5 mls/hr IV .Q24H [facility] Rx#: [id number] propofoL 1,000 mg In 193.18 172.972 131.883 Empty Bag 1 bag @ 15 MCG/ KG/MIN 6.736 mls/hr IV . [id number] [facility] Rx#:[id number] Tube Feeding 636 636 212 Other 90 90 30 Output: Urine 895 950 460 Other: Voiding Method Indwelling Catheter Indwelling Catheter Indwelling Catheter ABP, PAP, CO, CI - Last Documented Arterial Blood Pressure 102/55 - Exam No acute distress, sedated, with an orally placed endotracheal tube. HEENT examination is grossly unremarkable. Neck supple. Full range of motion. No adenopathy thyromegaly or neck vein distention. Cardiovascular examination reveals regular rhythm rate. S1-S2 normal. No S3 or S4. No discernible murmur noted. Heart sounds are distant. Heart rate 88 bpm. Lungs reveal mostly clear breath sounds. Minimal rhonchi. No wheezes or crackles. Saturation of 94%. Abdomen soft, with bowel sounds. No masses or tenderness. Extremities are intact. No cyanosis clubbing or edema. Skin is without rash or lesion. Neurologic examination cannot be assessed at this time. - Labs CBC & Chem 7: 08/11/23 03:20 08/11/23 03:20 Labs: Abnormal Lab Results - Last 24 Hours (Table) 08/10/23 08/10/23 08/11/23 Range/Units 09:30 23:42 03:20 WBC (3.8-10.6) k/uL RBC (4.30-5.90) m/uL MCV (80.0-100.0) fL Neutrophils # (1.3-7.7) k/uL Lymphocytes # (1.0-4.8) k/uL Monocytes # (0-1.0) k/uL ABG pO2 (83-108) mmHg ABG HCO3 (21-25) mmol/L ABG Total CO2 (19-24) mmol/L Chloride 111 H (98-107) mmol/L Creatinine 0.57 L (0.66-1.25) mg/dL Glucose 126 H (74-99) mg/dL POC Glucose (mg/dL) 112 H (70-110) mg/dL Fluid Appearance Turbid A (Clear) 08/11/23 08/11/23 08/11/23 Range/Units 03:20 06:13 06:48 WBC 11.4 H (3.8-10.6) k/uL RBC 3.94 L (4.30-5.90) m/uL MCV 103.9 H (80.0-100.0) fL Neutrophils # 8.0 H (1.3-7.7) k/uL Lymphocytes # 0.9 L (1.0-4.8) k/uL Monocytes # 1.7 H (0-1.0) k/uL ABG pO2 79 L (83-108) mmHg ABG HCO3 26 H (21-25) mmol/L ABG Total CO2 27 H (19-24) mmol/L Chloride (98-107) mmol/L Creatinine (0.66-1.25) mg/dL Glucose (74-99) mg/dL POC Glucose (mg/dL) 114 H (70-110) mg/dL Fluid Appearance (Clear) Assessment and Plan Assessment: Acute alcohol withdrawal, with respiratory failure, requiring intubation and mechanical ventilation, on August 07, 2023. Acute delirium tremens. Alcoholic liver disease. Thrombocytopenia, secondary to alcoholic liver disease. Alcoholic hepatopathy. History of marijuana use. Tobacco dependence syndrome. Plan: Plan dated August 11, 2023. The patient continues on Versed at 50 mg an hour, propofol at 50 mcg/kg/min. In an attempt, to wean these medications down, for eventual extubation, we had some Haldol, and Seroquel. Blood gases show pO2 of 79, pCO2 of 37, pH is 7.45. The patient continues on tube feedings with vital HP at 53 cc an hour. The patient will have a daily interruption of sedation today. The patient's been intubated since August 07. No additional recommendations are made. Labs, x-rays, and medications are all reviewed. Prognosis is guarded. We will continue to follow the patient, make recommendations along the way. Time with Patient: Greater than 30
[2023-08-11 11:49] LABS: Glucose,Whole Blood 96 mg/dL (70-110)
--- NOTE | 2023-08-11 12:22 | P.PN ---
Subjective Progress Note Date: 08/11/23 patient is of 43-year-old gentleman with past medical significant for alcohol abuse who presented to the ER for alcohol detox. Patient was sent to the ER from [place] where he was admitted on Friday for alcohol detox. Patient admits to drinking 1 L of alcohol daily. Denies any use of recreational drugs. Patient stated that he wanted to quit drinking as it was causing problems for his family. Denies any auditory or visualizations. There is no complaint of suicidal thoughts. Patient was being treated with oral Ativan at [place] but patient was getting restless and tachycardic. Patient was also complaining of increased shakiness. There was complaint of nausea and vomiting. Denies a bdominal pain. Denies any chest pain or shortness of breath. Initial lab work done in the ER showed WBC 8.3, hemoglobin 13.3, platelet count 70, sodium 130 potassium 4.2, BUN 22, creatinine 1.12, magnesium 1.4 AST 164, ALT 140 Influenza A not detected Influenza B not detected RSV not detected COVID-19 not detected UA negative for infection EKG done in the ER showed heart rate of 120 , no ST segment elevation or depression seen, no T-wave inversions seen. Chest x-ray done in the ER no acute cardiopulmonary process Patient admitted to internal medicine service 08/07. Patient seen examined. Patient's CIWA scores were high, was started on Precedex drip yesterday afternoon and was transferred to ICU. Patient continued to be agitated, was intubated and placed on propofol and Versed. Currently on vent. 08/08. Patient seen and examined. Continues to be sedated on propofol and Versed. Patient having low-grade fevers, started on IV Zosyn. 08/09. Patient seen and examined. Blood work done this morning showed WBC 12.8, hemoglobin 15.3, platelet count 82 sodium 136, potassium 3.3, BUN 12, creatinine 0.64. Patient afebrile overnight. Still tachycardic 08/10. Patient seen and examined. Lab work done this morning showed WBC 12.3, hemoglobin 14.6, platelet count 99, sodium 110, potassium 3.8, BUN 13, creatinine 0.59,. Continues to be intubated and sedated 08/11. Patient seen examined. Labs done showed WBC 9.4, hemoglobin 13.5, platelet count 152, sodium 138, potassium 3.9, BUN 12, creatinine 0.57. Patient underwent bronchoscopy yesterday. Critical care added Haldol and Seroquel, want to wean down on sedation. REVIEW OF SYSTEMS: Cannot be obtained as patient is currently intubated PHYSICAL EXAMINATION: GENERAL: The patient is intubated HEENT: Pupils are round and equally reacting to light. EOMI. No scleral icterus. No conjunctival pallor. Normocephalic, atraumatic. No pharyngeal erythema. No thyromegaly. CARDIOVASCULAR: S1 and S2 present. No murmurs, rubs, or gallops. Tachycardic PULMONARY: Chest is clear to auscultation, no wheezing or crackles. ABDOMEN: Soft, nontender, nondistended, normoactive bowel sounds. No palpable organomegaly. MUSCULOSKELETAL: No joint swelling or deformity. EXTREMITIES: No cyanosis, clubbing, or pedal edema. NEUROLOGICAL: Intubated and sedated. SKIN: No rashes. Assessment and plan Alcohol abuse alcohol detox Hypomagnesemia Thrombocytopenia Alcoholic hepatitis Marijuana use admitting to smoking 1 joint daily Chronic and ongoing tobacco dependence of up to 2 packs/day Monitor vital signs Monitor CBC Monitor CMP Continue telemetry monitoring Continue vent management per ICU Continue propofol and Versed Continue CIWA protocol Continue IV Zosyn Continue Lopressor 25 mg twice a day Continue thiamine and folic acid Monitor LFTs Continue tube feeding ICU following Consult ID Labs and medication were reviewed.. Continue same treatment. Continue with symptomatic treatment. Resume home medication. Monitor labs and vitals. DVT and GI prophylaxis. Further recommendations as per clinical course of the patient Dictation was produced using [employer] dictation software. please excuse any grammatical, word or spelling errors. Objective - Vital Signs Vital signs: Vital Signs Temp 100.9 F H 08/11/23 04:00 Pulse 98 08/11/23 07:30 Resp 20 08/11/23 07:30 BP 112/80 08/10/23 02:00 Pulse Ox 94 L 08/11/23 07:30 FiO2 50 08/11/23 08:22 Intake & Output 08/10/23 08/11/23 08/11/23 18:59 06:59 18:59 Intake Total 8747.676 5858.097 206 Output Total 895 950 175 Balance 938.055 824.097 31 Weight 79.2 kg Intake: IV 836 786 53 Piperacillin-Tazobactam 3 200 100 .375 gm In Sodium Chloride 0.9% 100 ml @ 25 mls/hr IVPB Q8HR [facility] Rx# :[id number] Pressure Bag 36 36 3 Sodium Chloride 0.9% 1, 400 550 50 000 ml @ 50 mls/hr IV . Q20H [facility] Rx#:[id number] Thiamine 500 mg In Sodium 200 100 Chloride 0.9% 100 ml @ 200 mls/hr IVPB TID [facility] Rx#:[id number] Intake, IV Titration 271.055 262.097 100 Amount Midazolam HCl 200 mg In 77.875 89.125 Sodium Chloride 0.9% 60 ml @ 1 MG/HR 0.5 mls/hr IV .Q24H [facility] Rx#: [id number] propofoL 1,000 mg In 193.18 172.972 100 Empty Bag 1 bag @ 15 MCG/ KG/MIN 6.736 mls/hr IV . [id number] [facility] Rx#:[id number] Tube Feeding 636 636 53 Other 90 90 Output: Urine 895 950 175 Other: Voiding Method Indwelling Catheter Indwelling Catheter ABP, PAP, CO, CI - Last Documented Arterial Blood Pressure 106/56 - Labs CBC & Chem 7: 08/11/23 03:20 08/11/23 03:20 Labs: Abnormal Lab Results - Last 24 Hours (Table) 08/10/23 08/10/23 08/11/23 Range/Units 09:30 23:42 03:20 WBC (3.8-10.6) k/uL RBC (4.30-5.90) m/uL MCV (80.0-100.0) fL Neutrophils # (1.3-7.7) k/uL Lymphocytes # (1.0-4.8) k/uL Monocytes # (0-1.0) k/uL ABG pO2 (83-108) mmHg ABG HCO3 (21-25) mmol/L ABG Total CO2 (19-24) mmol/L Chloride 111 H (98-107) mmol/L Creatinine 0.57 L (0.66-1.25) mg/dL Glucose 126 H (74-99) mg/dL POC Glucose (mg/dL) 112 H (70-110) mg/dL Fluid Appearance Turbid A (Clear) 08/11/23 08/11/23 08/11/23 Range/Units 03:20 06:13 06:48 WBC 11.4 H (3.8-10.6) k/uL RBC 3.94 L (4.30-5.90) m/uL MCV 103.9 H (80.0-100.0) fL Neutrophils # 8.0 H (1.3-7.7) k/uL Lymphocytes # 0.9 L (1.0-4.8) k/uL Monocytes # 1.7 H (0-1.0) k/uL ABG pO2 79 L (83-108) mmHg ABG HCO3 26 H (21-25) mmol/L ABG Total CO2 27 H (19-24) mmol/L Chloride (98-107) mmol/L Creatinine (0.66-1.25) mg/dL Glucose (74-99) mg/dL POC Glucose (mg/dL) 114 H (70-110) mg/dL Fluid Appearance (Clear)
[2023-08-11] MEDS: HEPARIN SODIUM,PORCINE 5,000 UNIT/ML 1 ML VIAL SQ SCH (12:29)
[2023-08-11] MEDS ORDERED: VANCOMYCIN IV PER PHARMACY 1 EACH MISC MISCELLANE PRN (12:46)
[2023-08-11] MEDS: VANCOMYCIN 1,500 MG in SODIUM CHLORIDE 0.9% 500 ML 500 ML IVPB SCH (15:21)
[2023-08-11 17:58] LABS: Glucose,Whole Blood 110 mg/dL (70-110)
[2023-08-11] MEDS: DOCUSATE 100 MG CAP PO PRN (18:02)
[2023-08-12 00:08] LABS: Glucose,Whole Blood 126 mg/dL (70-110)
[2023-08-12 06:03] LABS: Basophils # (A) 0.1 k/uL (0-0.2); Basophils % (A) 1 %; Eosinophils # (A) 0.3 k/uL (0-0.7); Eosinophils % (A) 2 %; HCT 40.1 % (39.0-53.0); HGB 13.4 gm/dL (13.0-17.5); Lymphocytes # (A) 1.1 k/uL (1.0-4.8); Lymphocytes % (A) 8 %; MCH 34.5 pg (25.0-35.0); MCHC 33.4 g/dL (31.0-37.0); MCV 103.2 fL (80.0-100.0); Macrocytosis Slight; Mean Platelet Volume 9.2; Monocytes # (A) 2.1 k/uL (0-1.0); Monocytes % (A) 15 %; Neutrophils # (A) 9.5 k/uL (1.3-7.7); Neutrophils % (A) 70 %; Platelet Count 250 k/uL (150-450); RBC 3.88 m/uL (4.30-5.90); RDW 13.5 % (11.5-15.5); WBC 13.6 k/uL (3.8-10.6)
[2023-08-12 06:11] LABS: Glucose,Whole Blood 114 mg/dL (70-110)
[2023-08-12 06:12] LABS: African American GFR (CKD) >90 (>60 ml/min/1.73 sqM); Anion Gap 1 mmol/L; Blood Urea Nitrogen 14 mg/dL (9-20); Calcium 8.6 mg/dL (8.4-10.2); Carbon Dioxide 24 mmol/L (22-30); Chloride 114 mmol/L (98-107); Glucose 122 mg/dL (74-99); Magnesium 2.1 mg/dL (1.6-2.3); Non-African American GFR(CKD) >90 (>60 ml/min/1.73 sqM); Sodium 139 mmol/L (137-145)
[2023-08-12 06:24] LABS: ABG Base Excess 1.1 mmol/L; ABG HCO3 25 mmol/L (21-25); ABG Oxygen Saturation 95.9 % (94-97); ABG PCO2 34 mmHg (35-45); ABG PH 7.47 (7.35-7.45); ABG PO2 76 mmHg (83-108); ABG TCO2 26 mmol/L (19-24); Allen Test Performed? Yes
--- NOTE | 2023-08-12 08:07 | P.CONS ---
History of Present Illness - Reason for Consult Consult date: 08/11/23 Fever Requesting physician: Madhu Mcdaniel - Chief Complaint Fever x few days - History of Present Illness Patient is a 43-year-old male with a past medical history significant for alcohol and drug abuse patient was at [facility] undergoing rehabilitation for alcohol abuse the patient was noticed to be undergoing alcohol withdrawal, the patient was receiving Ativan at the facility for his withdrawal symptoms however the patient did have worsening symptoms including shaking nausea vomiting patient was sent to the hospital for worsening symptoms patient may get intubated and admitted to ICU patient was afebrile on admission in the hospital however he started spiking fever as of 08/07/2023 and the patient has been feeling a fever on a daily basis with a temperature of 100.9 this morning and temperature 102.5 F this afternoon that has prompted this infectious disease consultation, the patient is currently intubated on the vent with a 50% FiO2 he did have some purulent secretions through the ET per the nursing staff patient is hemodynamically stable not requiring any pressor support the patient has been on tube feeds but has been tolerating and did not have any bowel movement. Patient white count of 11.4 with a left shift creatinine 0.57 electrolytes are normal liver isms were initially mildly elevated though did get down to normal as of yesterday patient did have a bronchoscopy done on 10 July which is growing Staph aureus patient is currently on Zosyn last chest x-ray completed this morning small effusion with focal bibasilar areas of atelectasis and or consolidation Review of Systems Positive points has been mentioned in HPI complete review could not be obtained because patient intubated on the vent Past Medical History Past Medical History: No Reported History History of Any Multi-Drug Resistant Organisms: None Reported Past Surgical History: Appendectomy Past Psychological History: No Psychological Hx Reported Smoking Status: Former smoker Past Alcohol Use History: Abuse Past Drug Use History: Marijuana Medications and Allergies Home Medications Medication Instructions Recorded Confirmed Type LORazepam [Ativan] 1 - 2 mg PO Q4H PRN 08/06/23 08/06/23 History Metoprolol Tartrate [Lopressor] 25 mg PO BID 30 Days #60 tab 08/19/23 Rx Pantoprazole [Protonix] 40 mg PO AC-BRKFST #30 tab 08/19/23 Rx QUEtiapine [SEROquel] 100 mg PO BID #30 tab 08/19/23 Rx Sulfamethox-Tmp 800-160Mg [Bactrim 1 tab PO Q12HR 7 Days #14 tab 08/19/23 Rx DS 800-160 mg] Thiamine [Vitamin B-1] 100 mg PO DAILY@1200 #30 tab 08/19/23 Rx Allergies Allergy/AdvReac Type Severity Reaction Status Date / Time No Known Allergies Allergy Verified 08/06/23 10:20 Physical Exam Vitals: Vital Signs Temp Pulse Resp Pulse Ox FiO2 08/11/23 12:00 96 18 91 L 08/11/23 11:30 93 18 94 L 08/11/23 11:22 50 08/11/23 11:00 90 16 94 L 08/11/23 10:30 88 17 93 L 08/11/23 10:00 88 17 93 L 08/11/23 09:30 99.4 F 88 16 96 08/11/23 09:00 92 19 95 08/11/23 08:30 96 19 95 08/11/23 08:22 50 08/11/23 08:16 50 08/11/23 08:00 100.5 F H 97 19 95 50 08/11/23 07:30 98 20 94 L 08/11/23 07:00 96 22 94 L 08/11/23 06:30 96 16 94 L 08/11/23 06:00 99 16 94 L 08/11/23 05:30 101 H 17 94 L 08/11/23 05:00 101 H 15 95 08/11/23 04:30 98 15 95 08/11/23 04:00 100.9 F H 99 25 H 94 L 50 08/11/23 03:38 50 08/11/23 03:30 98 17 94 L 08/11/23 03:00 99 19 94 L 08/11/23 02:30 98 16 93 L 08/11/23 02:00 99 19 95 08/11/23 01:30 93 16 98 08/11/23 01:00 101 H 20 94 L 08/11/23 00:30 98 17 94 L 08/11/23 00:04 50 08/11/23 00:00 99.3 F 96 17 95 50 08/10/23 23:30 95 16 95 08/10/23 23:00 94 22 95 08/10/23 22:30 98 17 96 08/10/23 22:17 98 16 94 L 08/10/23 22:00 98 18 94 L 08/10/23 21:30 95 16 95 08/10/23 21:00 92 18 96 08/10/23 20:30 94 16 94 L 08/10/23 20:28 50 08/10/23 20:00 100.2 F H 98 17 94 L 50 08/10/23 19:30 99 17 92 L 08/10/23 19:00 105 H 19 93 L 08/10/23 18:30 100 18 90 L 08/10/23 18:00 101 H 16 92 L 08/10/23 17:30 103 H 19 91 L 08/10/23 17:00 102 H 19 91 L 08/10/23 16:30 100 18 91 L 08/10/23 16:00 99.6 F 100 21 92 L 50 08/10/23 15:31 50 08/10/23 15:30 98 19 91 L 50 08/10/23 15:00 98 18 90 L 08/10/23 14:41 50 08/10/23 14:30 92 16 94 L 08/10/23 14:00 94 16 93 L 08/10/23 13:30 92 18 94 L 08/10/23 13:00 96 16 94 L Intake and Output 08/10/23 08/11/23 08/11/23 22:59 06:59 14:59 Intake Total 6465.342 6188.972 792.540 Output Total 655 600 760 Balance 392.125 630.972 32.540 Intake: IV 474 574 318 Piperacillin-Tazobactam 3 100 100 .375 gm In Sodium Chloride 0.9% 100 ml @ 25 mls/hr IVPB Q8HR [facility] Rx# :[id number] Pressure Bag 24 24 18 Sodium Chloride 0.9% 1, 250 350 300 000 ml @ 50 mls/hr IV . Q20H [facility] Rx#:[id number] Thiamine 500 mg In Sodium 100 100 Chloride 0.9% 100 ml @ 200 mls/hr IVPB TID [facility] Rx#:[id number] Intake, IV Titration 89.125 172.972 232.540 Amount Midazolam HCl 200 mg In 89.125 100.657 Sodium Chloride 0.9% 60 ml @ 1 MG/HR 0.5 mls/hr IV .Q24H [facility] Rx#: [id number] propofoL 1,000 mg In 172.972 131.883 Empty Bag 1 bag @ 15 MCG/ KG/MIN 6.736 mls/hr IV . [id number] [facility] Rx#:[id number] Tube Feeding 424 424 212 Other 60 60 30 Output: Urine 655 600 760 Other: Voiding Method Indwelling Catheter Indwelling Catheter Indwelling Catheter Weight 79.2 kg 79.2 kg ABP, PAP, CO, CI - Last 8 Hours Arterial Blood Pressure 132/65 Arterial Blood Pressure 137/72 Arterial Blood Pressure 102/55 Arterial Blood Pressure 107/56 Arterial Blood Pressure 103/54 Arterial Blood Pressure 94/51 Arterial Blood Pressure 92/51 Arterial Blood Pressure 110/59 Arterial Blood Pressure 112/58 Arterial Blood Pressure 106/56 Arterial Blood Pressure 114/60 Arterial Blood Pressure 121/61 Arterial Blood Pressure 114/60 Arterial Blood Pressure 111/58 Arterial Blood Pressure 116/58 GENERAL DESCRIPTION: Middle-age male intubated on the vent HEENT: Shows Pallor , no scleral icterus. Oral mucous membrane is dry. NECK: Trachea central, no thyromegaly. LUNGS: Unlabored breathing. Decreased breath sounds at the base HEART: S1, S2, regular rate and rhythm. No loud murmur ABDOMEN: Soft, no tenderness , guarding or rigidity, no organomegaly EXTREMITIES: No edema of feet. SKIN: No rash, no masses palpable. NEUROLOGICAL: The patient is sedated on the vent Results CBC & Chem 7: 08/19/23 10:56 08/19/23 10:56 Labs: Abnormal Lab Results - Last 24 Hours (Table) 08/10/23 08/10/23 08/11/23 Range/Units 09:30 23:42 03:20 WBC (3.8-10.6) k/uL RBC (4.30-5.90) m/uL MCV (80.0-100.0) fL Neutrophils # (1.3-7.7) k/uL Lymphocytes # (1.0-4.8) k/uL Monocytes # (0-1.0) k/uL ABG pO2 (83-108) mmHg ABG HCO3 (21-25) mmol/L ABG Total CO2 (19-24) mmol/L Chloride 111 H (98-107) mmol/L Creatinine 0.57 L (0.66-1.25) mg/dL Glucose 126 H (74-99) mg/dL POC Glucose (mg/dL) 112 H (70-110) mg/dL Fluid Appearance Turbid A (Clear) 08/11/23 08/11/23 08/11/23 Range/Units 03:20 06:13 06:48 WBC 11.4 H (3.8-10.6) k/uL RBC 3.94 L (4.30-5.90) m/uL MCV 103.9 H (80.0-100.0) fL Neutrophils # 8.0 H (1.3-7.7) k/uL Lymphocytes # 0.9 L (1.0-4.8) k/uL Monocytes # 1.7 H (0-1.0) k/uL ABG pO2 79 L (83-108) mmHg ABG HCO3 26 H (21-25) mmol/L ABG Total CO2 27 H (19-24) mmol/L Chloride (98-107) mmol/L Creatinine (0.66-1.25) mg/dL Glucose (74-99) mg/dL POC Glucose (mg/dL) 114 H (70-110) mg/dL Fluid Appearance (Clear) Microbiology - Last 24 Hours (Table) 08/10/23 09:30 Gram Stain - Preliminary Bronchoalviolar Lavage - Left Bronchial Washings Culture - Preliminary Presumptive Staph aureus Assessment and Plan (1) Pneumonia Status: Acute Code(s): J18.9 - PNEUMONIA, UNSPECIFIED ORGANISM SNOMED Code(s): 784104229 (2) Sepsis Status: Acute Code(s): A41.9 - SEPSIS, UNSPECIFIED ORGANISM SNOMED Code(s): 86950617 Plan: 1patient with sepsis in this patient who did have fever tachycardia elevated white count in this patient admitted to hospital with alcohol withdrawal symptoms and concern for possible component of aspiration pneumonitis with a sputum now growing Staph aureus concerning for possible MRSA 2-blood cultures will be requested and we will also check a CRP and a procalcitonin level and follow-up on the sputum culture 3-we will add vancomycin pharmacy to dose although significant function closely We will follow on clinical condition and cultures to further adjust medication if needed Thank you for this consultation we will follow the patient along with you Dictation was produced using [employer] software. please excuse any grammatical, word or spelling errors. Time with Patient: Greater than 30
--- NOTE | 2023-08-12 09:04 | XR ---
EXAMINATION TYPE: XR chest 1V portable DATE OF EXAM: 08/12/2023 Comparison: 08/11/2023 Clinical History: 43-year-old male mechanical ventilation; left lower lobe pneumonia Findings: ET and NG tubes are satisfactory. Heart upper limits of normal in size. Focal bibasilar opacities and small pleural effusions remain without significant change. Impression: Ongoing small bilateral pleural effusions with adjacent atelectasis and/or consolidation.
--- NOTE | 2023-08-12 10:20 | P.PN ---
Subjective Progress Note Date: 08/12/23 Principal diagnosis: Respiratory failure. Acute alcohol withdrawal This is a 43-year-old male patient who resides in the [place] area who had recently been admitted to [facility] for alcohol withdrawal. He was admitting to drinking 1 L of tequila per day. He smokes 2 packs of cigarettes per day and 1 marijuana joint per day. States his last dri nk was at noon on the 12th prior to his admission to [facility]. He was sent here today by EMS for acute withdrawal syndromedelirium. Chest x-ray revealed no acute pulmonary process. EKG revealed sinus tachycardia. White count 8.3. Hemoglobin 16.3. Platelets 70,000. Sodium 137. Potassium 4.2. Bicarb 29. BUN 22. Creatinine 1.12. AST 164. ALT 140. Lipase 146. Viral screen negative. Since his arrival he has required 10 mg of Ativan. He is still quite restless. Precedex drip was ordered and he will be admitted to the intensive care unit. He is seen today in consultation in the emergency department. He has restless. Walking around in his room. Security is at the bedside. Precedex had not been started yet. He is maintaining O2 saturations in the 90s on room air. He is tachycardic in the 110s, 120s. Blood pressure stable. Afebrile. Patient was reevaluated today on 08/07/2023, patient developed worsening picture of alcohol withdrawal and acute delirium tremens, requiring intubation and mechanical ventilation. He is now on assist-control 18 tidal volume 450 FiO2 35% and PEEP of 5, ABG showed a pO2 of 148 pCO2 34 pH of 7.44 hence his rate was cut down to 16 and his tidal volume kept the same FiO2 down to 35% patient is still requiring significant amount of sedation including propofol at 60 mcg/kg/min, Versed was added this morning mostly because of persistent agitation in spite of propofol on board. CBC is relatively normal basic metabolic profile is normal except for low potassium of 3.3 chest x-ray is showing mostly left basilar atelectasis. Doubt pneumonia. Screening for influenza A B, RSV and COVID-19 all negative patient remains on the CIWA protocol, and spite of being on Precedex yesterday, patient continued to develop alcohol withdrawal requiring intubation mechanical ventilation. Patient was reevaluated today on 08/08/2023, patient remains in the ICU, intubated and mechanically ventilated. Patient is on assist-control rate of 16 tidal volume 450 FiO2 35% PEEP of 5. Patient is still requiring significant amount of sedation to keep him calm, otherwise he gets agitated, restless, and becomes asynchronous with mechanical ventilation. He is now on propofol at 50 mcg/kg/min and Versed at 15 mg/h. IV fluid is running at 2.9 normal saline 75 cc/h. Chest x-ray is showing more atelectasis, and more pleural effusions, hence I am cutting down his IV fluid to KVO and I am giving him Lasix 40 mg IV push x 1. In addition considering the patient is showing a low-grade temp with a temp of 99 today, I am recommending Zosyn to be started empirically. Patient is a good set up for aspiration pneumonia. And the findings of atelectasi s/infiltrates are noted in both lungs today. Left more so than right. Patient is receiving enteral feeding. He is also on GI DVT prophylaxis. His WBC count is 9.9 hemoglobin is 15 electrolytes are normal BUN is normal creatinine is normal, liver enzymes are improving steadily Patient was reevaluated today on 08/09/2023, patient remains in the ICU intubated and mechanically ventilated on assist-control rate of 16 tidal volume 450 FiO2 35% PEEP of 5 ABG showed a pO2 of 82 pCO2 36 pH of 7.43. Patient continues to require significant amount of sedation including propofol at 50 mcg/kg/min Vers ed at 15 mg/h. Patient is also 1.9 normal saline at 75 cc/h and receiving vital HP. Empirically the patient is on Zosyn, endotracheal tube seems to be high, and this will be advanced down 3 cm today. Chest x-ray continues to show some atelectasis and opacities at the bases especially at the left base, patient is empirically on Zosyn. WBC count is 12.8 hemoglobin 15.3. Basic metabolic profile is normal bicarb is 21 renal profile is normal Progress note dated August 11, 2023. The patient was seen today in room 266. The patient continues on mechanical ventilation. He is on volume assist-control, rate 16, tidal volume 500, FiO2 50%, PEEP of 5. Blood gases show pO2 79, pCO2 37, pH is 7.45. The patient continues on propofol at 50 mcg/kg/min, Versed at 50 mg an hour, and saline at 50 cc an hour. The patient is receiving vital high-protein at 53 cc an hour. The patient was admitted to the hospital on August 06, and was intubated the following day on the . Today, we will attempt a daily interruption of sedation. In addition, the patient will have some Haldol, and Seroquel, added to his regimen, for additional sedation. White count 11.4, hemoglobin 13.5, hematocrit 41, with a normal platelet count. Sodium 138, potassium 3.9, chlorides 111, CO2 23, BUN 12, creatinine 0.57. Glucose is 114. Magnesium 1.9. Progress note dated August 12, 2023. 43-year-old male seen today in room 266. The patient remains on the mechanical ventilator. He is on volume assist-control, rate 16, tidal volume 500, FiO2 50%, PEEP of 5. Blood gases show pO2 of 76, pCO2 34, pH is 7.47. This blood gas is consistent with a mild respiratory alkalosis. The patient is getting propofol at 10 mcg/kg/min, saline at 50 cc an hour, and vital high-protein at 59 cc an hour. That is goal. The patient continues on Zosyn, and vancomycin. The BAL sampling, did reveal evidence of methicillin-resistant Staph aureus, hence the vancomycin. White count 13.6, hemoglobin 13.4, hematocrit 40.1, platelet count 250,000. Sodium 139, potassium 4, chlorides 114, CO2 24, BUN 14, creatinine 0.61. Calcium 8.6. Magnesium 2.1. BAL sampling from August 10, was positive for methicillin-resistant Staph aureus. This x-ray shows bilateral effusions, which are relatively small, and bibasilar atelectasis. Objective - Vital Signs Vital signs: Vital Signs Temp 100.9 F H 08/12/23 08:00 Pulse 106 H 08/12/23 09:00 Resp 21 08/12/23 09:00 BP 112/80 08/10/23 02:00 Pulse Ox 95 08/12/23 09:00 FiO2 50 08/12/23 08:00 Intake & Output 08/11/23 08/12/23 08/12/23 18:59 06:59 18:59 Intake Total 2082.840 2542.117 497.384 Output Total 1630 1755 390 Balance 452.840 787.117 107.384 Weight 79.2 kg 81.7 kg Intake: IV 1336 1736 412 Piperacillin-Tazobactam 3 200 100 200 .375 gm In Sodium Chloride 0.9% 100 ml @ 25 mls/hr IVPB Q8HR [facility] Rx# :[id number] Pressure Bag 36 36 12 Sodium Chloride 0.9% 1, 600 600 200 000 ml @ 50 mls/hr IV . Q20H [facility]AC[facility]N Rx#:[id number] Vancomycin 1,500 mg In 500 1000 Sodium Chloride 0.9% 500 ml 500 ml @ 167 mls/hr IVPB Q8H JACLYN Rx#: [id number] Intake, IV Titration 238.840 68.117 26.384 Amount Midazolam HCl 200 mg In 106.957 Sodium Chloride 0.9% 60 ml @ 1 MG/HR 0.5 mls/hr IV .Q24H JACLYN Rx#: [id number] propofoL 1,000 mg In 131.883 68.117 26.384 Empty Bag 1 bag @ 15 MCG/ KG/MIN 6.736 mls/hr IV . [id number] JACLYN Rx#:[id number] Tube Feeding 448 708 59 Other 60 30 Output: Urine 1630 1755 390 Other: Voiding Method Indwelling Catheter Indwelling Catheter Indwelling Catheter ABP, PAP, CO, CI - Last Documented Arterial Blood Pressure 132/69 - Exam No acute distress, sedated, with an orally placed endotracheal tube. HEENT examination is grossly unremarkable. Neck supple. Full range of motion. No adenopathy thyromegaly or neck vein distention. Cardiovascular examination reveals regular rhythm rate. S1-S2 normal. No S3 or S4. No discernible murmur noted. Heart sounds are distant. Heart rate 98 bpm. Lungs reveal mostly clear breath sounds. Minimal rhonchi. No wheezes or crackles. Saturation of 95 %. Abdomen soft, with bowel sounds. No masses or tenderness. Extremities are intact. No cyanosis clubbing or edema. Skin is without rash or lesion. Neurologic examination cannot be assessed at this time. - Labs CBC & Chem 7: 08/12/23 05:50 08/12/23 05:50 Labs: Abnormal Lab Results - Last 24 Hours (Table) 08/11/23 08/11/23 08/12/23 Range/Units 12:52 12:52 00:07 WBC (3.8-10.6) k/uL RBC (4.30-5.90) m/uL MCV (80.0-100.0) fL Neutrophils # (1.3-7.7) k/uL Monocytes # (0-1.0) k/uL ABG pH (7.35-7.45) ABG pCO2 (35-45) mmHg ABG pO2 (83-108) mmHg ABG Total CO2 (19-24) mmol/L Chloride (98-107) mmol/L Creatinine (0.66-1.25) mg/dL Glucose (74-99) mg/dL POC Glucose (mg/dL) 126 H (70-110) mg/dL C-Reactive Protein 35.8 H (<1.0) mg/dL Procalcitonin 0.17 H (0.02-0.09) ng/mL 08/12/23 08/12/23 08/12/23 Range/Units 05:48 05:50 05:50 WBC 13.6 H (3.8-10.6) k/uL RBC 3.88 L (4.30-5.90) m/uL MCV 103.2 H (80.0-100.0) fL Neutrophils # 9.5 H (1.3-7.7) k/uL Monocytes # 2.1 H (0-1.0) k/uL ABG pH 7.47 H (7.35-7.45) ABG pCO2 34 L (35-45) mmHg ABG pO2 76 L (83-108) mmHg ABG Total CO2 26 H (19-24) mmol/L Chloride 114 H (98-107) mmol/L Creatinine 0.61 L (0.66-1.25) mg/dL Glucose 122 H (74-99) mg/dL POC Glucose (mg/dL) (70-110) mg/dL C-Reactive Protein (<1.0) mg/dL Procalcitonin (0.02-0.09) ng/mL 08/12/23 Range/Units 06:09 WBC (3.8-10.6) k/uL RBC (4.30-5.90) m/uL MCV (80.0-100.0) fL Neutrophils # (1.3-7.7) k/uL Monocytes # (0-1.0) k/uL ABG pH (7.35-7.45) ABG pCO2 (35-45) mmHg ABG pO2 (83-108) mmHg ABG Total CO2 (19-24) mmol/L Chloride (98-107) mmol/L Creatinine (0.66-1.25) mg/dL Glucose (74-99) mg/dL POC Glucose (mg/dL) 114 H (70-110) mg/dL C-Reactive Protein (<1.0) mg/dL Procalcitonin (0.02-0.09) ng/mL Microbiology - Last 24 Hours (Table) 08/10/23 09:30 Gram Stain - Final Bronchoalviolar Lavage - Left Bronchial Washings Culture - Final Methicillin resist S. aureus 08/10/23 09:30 Acid Fast Bacilli Smear - Preliminary Bronchoalviolar Lavage - Left Assessment and Plan Assessment: Acute alcohol withdrawal, with respiratory failure, requiring intubation and mechanical ventilation, on August 07, 2023. Acute delirium tremens. Alcoholic liver disease. Thrombocytopenia, secondary to alcoholic liver disease. Alcoholic hepatopathy. History of marijuana use. Tobacco dependence syndrome. Plan: Plan dated August 11, 2023. The patient continues on Versed at 50 mg an hour, propofol at 50 mcg/kg/min. In an attempt, to wean these medications down, for eventual extubation, we had some Haldol, and Seroquel. Blood gases show pO2 of 79, pCO2 of 37, pH is 7.45. The patient continues on tube feedings with vital HP at 53 cc an hour. The patient will have a daily interruption of sedation today. The patient's been intubated since August 07. No additional recommendations are made. Labs, x-rays, and medications are all reviewed. Prognosis is guarded. We will continue to follow the patient, make recommendations along the way. Plan dated August 20, 2023. The patient is currently on a small dose of propofol, i.e., 10 mcg/kg/min. He was weaned off the Versed. Yesterday, despite being off of all sedation, the patient was poorly responsive. We did not attempt a spontaneous breathing trial. We will do a DIS/SBT today. The patient currently remains on Zosyn and vancomycin. The BAL sampling showed evidence of MRSA. Labs, x-rays, medications are reviewed. We will continue to follow make recommendations along the way. Were hoping that his neurologic status improves, so that we can move towards weaning and extubation. Will continue to follow and make recommendations. Prognosis is guarded. Time with Patient: Greater than 30
[2023-08-12] MEDS: ONDANSETRON 4 MG/2 ML VIAL IVP PRN (10:25)
[2023-08-12] MEDS: THIAMINE 100 MG TAB PO SCH (11:21)
[2023-08-12 11:39] LABS: Glucose,Whole Blood 105 mg/dL (70-110)
--- NOTE | 2023-08-12 13:05 | P.PN ---
Subjective Progress Note Date: 08/12/23 Principal diagnosis: Reason for follow-up is fever pneumonia Patient is a 43-year-old male with a past medical history significant for alcohol and drug abuse patient was at [place] undergoing rehabilitation for alcohol abuse the patient was noticed to be undergoing alcohol withdrawal for the patient was brought to the hospital did require intubation because of h is respiratory status patient did have a fever, patient did have a BAL on 08/10/2023 growing MRSA. On today's evaluation that is 08/12/2023, the patient did spike another fever of 101.8 at noon patient is hemodynamically stable not requiring any pressor support FiO2 of 50% apparently did have an episode of vomiting this morning per the nursing staff. Patient white count is 13.6, creatinine 0.61 chest x-ray ongoing small bilateral effusion and adjacent atelectasis or consolidation Objective - Vital Signs Vital signs: Vital Signs Temp 100.9 F H 08/12/23 08:00 Pulse 106 H 08/12/23 09:00 Resp 21 08/12/23 09:00 BP 112/80 08/10/23 02:00 Pulse Ox 95 08/12/23 09:00 FiO2 50 08/12/23 08:00 Intake & Output 08/11/23 08/12/23 08/12/23 18:59 06:59 18:59 Intake Total 2082.840 2542.117 497.384 Output Total 1630 1755 390 Balance 452.840 787.117 107.384 Weight 79.2 kg 81.7 kg Intake: IV 1336 1736 412 Piperacillin-Tazobactam 3 200 100 200 .375 gm In Sodium Chloride 0.9% 100 ml @ 25 mls/hr IVPB Q8HR [facility] Rx# :[id number] Pressure Bag 36 36 12 Sodium Chloride 0.9% 1, 600 600 200 000 ml @ 50 mls/hr IV . Q20H [facility] Rx#:[id number] Vancomycin 1,500 mg In 500 1000 Sodium Chloride 0.9% 500 ml 500 ml @ 167 mls/hr IVPB Q8H [facility] Rx#: [id number] Intake, IV Titration 238.840 68.117 26.384 Amount Midazolam HCl 200 mg In 106.957 Sodium Chloride 0.9% 60 ml @ 1 MG/HR 0.5 mls/hr IV .Q24H [facility] Rx#: [id number] propofoL 1,000 mg In 131.883 68.117 26.384 Empty Bag 1 bag @ 15 MCG/ KG/MIN 6.736 mls/hr IV . [id number] [facility] Rx#:[id number] Tube Feeding 448 708 59 Other 60 30 Output: Urine 1630 1755 390 Other: Voiding Method Indwelling Catheter Indwelling Catheter Indwelling Catheter ABP, PAP, CO, CI - Last Documented Arterial Blood Pressure 132/69 - Exam GENERAL DESCRIPTION: Middle-age male intubated on the vent RESPIRATORY SYSTEM: Unlabored breathing , decreased breath sounds at bases HEART: S1 S2 regular rate and rhythm , ABDOMEN: Soft , no tenderness EXTREMITIES: No edema feet - Labs CBC & Chem 7: 08/12/23 05:50 08/12/23 05:50 Labs: Abnormal Lab Results - Last 24 Hours (Table) 08/11/23 08/11/23 08/12/23 Range/Units 12:52 12:52 00:07 WBC (3.8-10.6) k/uL RBC (4.30-5.90) m/uL MCV (80.0-100.0) fL Neutrophils # (1.3-7.7) k/uL Monocytes # (0-1.0) k/uL ABG pH (7.35-7.45) ABG pCO2 (35-45) mmHg ABG pO2 (83-108) mmHg ABG Total CO2 (19-24) mmol/L Chloride (98-107) mmol/L Creatinine (0.66-1.25) mg/dL Glucose (74-99) mg/dL POC Glucose (mg/dL) 126 H (70-110) mg/dL C-Reactive Protein 35.8 H (<1.0) mg/dL Procalcitonin 0.17 H (0.02-0.09) ng/mL 08/12/23 08/12/23 08/12/23 Range/Units 05:48 05:50 05:50 WBC 13.6 H (3.8-10.6) k/uL RBC 3.88 L (4.30-5.90) m/uL MCV 103.2 H (80.0-100.0) fL Neutrophils # 9.5 H (1.3-7.7) k/uL Monocytes # 2.1 H (0-1.0) k/uL ABG pH 7.47 H (7.35-7.45) ABG pCO2 34 L (35-45) mmHg ABG pO2 76 L (83-108) mmHg ABG Total CO2 26 H (19-24) mmol/L Chloride 114 H (98-107) mmol/L Creatinine 0.61 L (0.66-1.25) mg/dL Glucose 122 H (74-99) mg/dL POC Glucose (mg/dL) (70-110) mg/dL C-Reactive Protein (<1.0) mg/dL Procalcitonin (0.02-0.09) ng/mL 08/12/23 Range/Units 06:09 WBC (3.8-10.6) k/uL RBC (4.30-5.90) m/uL MCV (80.0-100.0) fL Neutrophils # (1.3-7.7) k/uL Monocytes # (0-1.0) k/uL ABG pH (7.35-7.45) ABG pCO2 (35-45) mmHg ABG pO2 (83-108) mmHg ABG Total CO2 (19-24) mmol/L Chloride (98-107) mmol/L Creatinine (0.66-1.25) mg/dL Glucose (74-99) mg/dL POC Glucose (mg/dL) 114 H (70-110) mg/dL C-Reactive Protein (<1.0) mg/dL Procalcitonin (0.02-0.09) ng/mL Microbiology - Last 24 Hours (Table) 08/10/23 09:30 Gram Stain - Final Bronchoalviolar Lavage - Left Bronchial Washings Culture - Final Methicillin resist S. aureus 08/10/23 09:30 Acid Fast Bacilli Smear - Preliminary Bronchoalviolar Lavage - Left Assessment and Plan (1) Sepsis Current Visit: Yes Status: Acute Code(s): A41.9 - SEPSIS, UNSPECIFIED ORGANISM SNOMED Code(s): 58663795 (2) Pneumonia Current Visit: Yes Status: Acute Code(s): J18.9 - PNEUMONIA, UNSPECIFIED ORGANISM SNOMED Code(s): 604424460 (3) MRSA (methicillin resistant staph aureus) culture positive Current Visit: Yes Status: Acute Code(s): Z22.322 - CARRIER OR SUSPECTED CARRIER OF METHICILLIN RESIS STAPH SNOMED Code(s): 779278004 Plan: 1patient with sepsis in this patient who did have fever tachycardia elevated white count in this patient admitted to hospital with alcohol withdrawal symptoms and concern for possible component of aspiration pneumonitis with a sputum now growing MRSA 2-blood cultures has been requested and currently waiting for CRP and procalcitonin 3-patient to continue with vancomycin pharmacy to dose however discontinue Zosyn decrease risk of nephrotoxicity Dictation was produced using [employer] dictation software. please excuse any grammatical, word or spelling errors. Time with Patient: Less than 30
[2023-08-12] MEDS: SENNOSIDES 8.6 MG TAB PO PRN (20:24)
[2023-08-12 23:58] LABS: Glucose,Whole Blood 113 mg/dL (70-110)
[2023-08-13 03:35] LABS: Basophils # (A) 0.1 k/uL (0-0.2); Basophils % (A) 1 %; Eosinophils # (A) 0.3 k/uL (0-0.7); Eosinophils % (A) 2 %; HCT 39.7 % (39.0-53.0); HGB 13.3 gm/dL (13.0-17.5); Lymphocytes # (A) 1.2 k/uL (1.0-4.8); Lymphocytes % (A) 7 %; MCH 34.4 pg (25.0-35.0); MCHC 33.4 g/dL (31.0-37.0); Macrocytosis Slight; Mean Platelet Volume 8.9; Monocytes # (A) 1.7 k/uL (0-1.0); Monocytes % (A) 10 %; Neutrophils # (A) 13.1 k/uL (1.3-7.7); Neutrophils % (A) 77 %; Platelet Count 270 k/uL (150-450); RBC 3.85 m/uL (4.30-5.90); RDW 13.5 % (11.5-15.5); WBC 16.9 k/uL (3.8-10.6)
[2023-08-13 03:50] LABS: African American GFR (CKD) >90 (>60 ml/min/1.73 sqM); Anion Gap 7 mmol/L; Blood Urea Nitrogen 14 mg/dL (9-20); Calcium 8.7 mg/dL (8.4-10.2); Carbon Dioxide 22 mmol/L (22-30); Chloride 110 mmol/L (98-107); Glucose 113 mg/dL (74-99); Non-African American GFR(CKD) >90 (>60 ml/min/1.73 sqM); Potassium 3.6 mmol/L (3.5-5.1); Sodium 139 mmol/L (137-145)
[2023-08-13] MEDS: POTASSIUM BICARBONATE/CIT AC 20 MEQ TABLET.EFF NG-TUBE SCH (05:14)
[2023-08-13] MEDS: VANCOMYCIN TROUGH DUE 1 EACH MISC MISCELLANE ONE (05:15)
[2023-08-13 05:58] LABS: ABG Base Excess 2.1 mmol/L; ABG HCO3 26 mmol/L (21-25); ABG Oxygen Saturation 97.1 % (94-97); ABG PCO2 34 mmHg (35-45); ABG PH 7.49 (7.35-7.45); ABG PO2 83 mmHg (83-108); ABG TCO2 27 mmol/L (19-24)
[2023-08-13 06:52] LABS: Glucose,Whole Blood 124 mg/dL (70-110)
--- NOTE | 2023-08-13 07:41 | XR ---
EXAMINATION TYPE: XR chest 1V portable DATE OF EXAM: 08/13/2023 Comparison: 08/12/2023 Clinical History: 43-year-old male mechanical ventilation Findings: ET tube satisfactory. NG tube courses below the diaphragm. Leftward patient rotation alters the cynthia l cardiomediastinal contours. Heart upper limits of normal in size. Mild interstitial density remains . Similar to decreasing small bilateral pleural effusions with bibasilar opacities. Impression: 1. Mild interstitial prominence remains, possible mild pulmonary vascular congestion. 2. Small bilateral effusions with adjacent atelectasis and/or consolidation are similar to slightly i mproved.
[2023-08-13] MEDS: HALOPERIDOL LACTATE 5 MG/ML 1 ML VIAL IVP PRN ×2 (07:42→14:59)
--- NOTE | 2023-08-13 10:21 | P.PN ---
Subjective Progress Note Date: 08/12/23 patient is of 43-year-old gentleman with past medical significant for alcohol abuse who presented to the ER for alcohol detox. Patient was sent to the ER from [place] where he was admitted on Friday for alcohol detox. Patient admits to drinking 1 L of alcohol daily. Denies any use of recreational drugs. Patient stated that he wanted to quit drinking as it was causing problems for his family. Denies any auditory or visualizations. There is no complaint of suicidal thoughts. Patient was being treated with oral Ativan at [place] but patient was getting restless and tachycardic. Patient was also complaining of increased shakiness. There was complaint of nausea and vomiting. Denies abdominal pain. Denies any chest pain or shortness of breath. Initial lab work done in the ER showed WBC 8.3, hemoglobin 13.3, platelet count 70, sodium 130 potassium 4.2, BUN 22, creatinine 1.12, magnesium 1.4 AST 164, ALT 140 Influenza A not detected Influenza B not detected RSV not detected COVID-19 not detected UA negative for infection EKG done in the ER showed heart rate of 120 , no ST segment elevation or depression seen, no T-wave inversions seen. Chest x-ray done in the ER no acute cardiopulmonary process Patient admitted to internal medicine service 08/07. Patient seen examined. Patient's CIWA scores were high, was started on Precedex drip yesterday afternoon and was transferred to ICU. Patient continued to be agitated, was intubated and placed on propofol and Versed. Currently on vent. 08/08. Patient seen and examined. Continues to be sedated on propofol and Versed. Patient having low-grade fevers, started on IV Zosyn. 08/09. Patient seen and examined. Blood work done this morning showed WBC 12.8, hemoglobin 15.3, platelet count 82 sodium 136, potassium 3.3, BUN 12, creatinine 0.64. Patient afebrile overnight. Still tachycardic 08/10. Patient seen and examined. Lab work done this morning showed WBC 12.3, hemoglobin 14.6, platelet count 99, sodium 110, potassium 3.8, BUN 13, creatinine 0.59,. Continues to be intubated and sedated 08/11. Patient seen examined. Labs done showed WBC 9.4, hemoglobin 13.5, platelet count 152, sodium 138, potassium 3.9, BUN 12, creatinine 0.57. Patient underwent bronchoscopy yesterday. Critical care added Haldol and Seroquel, want to wean down on sedation. 08/12/2023 Patient is in the MICU. Currently intubated and on mechanical ventilator. Sedation was off briefly. BAL culture is growing MRSA status post bronchoscopy on 08/10/2023. Currently on vancomycin. Patient is on IV hydration with normal saline at 50 mL's per hour. On alcohol withdrawal protocol. Chest x-ray showed ongoing small bilateral pleural effusions with adjacent atelectasis and consolidation. REVIEW OF SYSTEMS: Cannot be obtained as patient is currently intubated PHYSICAL EXAMINATION: GENERAL: The patient is intubated HEENT: Pupils are round and equally reacting to light. EOMI. No scleral icterus. No conjunctival pallor. Normocephalic, atraumatic. No pharyngeal erythema. No thyromegaly. CARDIOVASCULAR: S1 and S2 present. No murmurs, rubs, or gallops. Tachycardic PULMONARY: Chest is clear to auscultation, no wheezing or crackles. ABDOMEN: Soft, nontender, nondistended, normoactive bowel sounds. No palpable organomegaly. MUSCULOSKELETAL: No joint swelling or deformity. EXTREMITIES: No cyanosis, clubbing, or pedal edema. NEUROLOGICAL: Intubated and sedated. SKIN: No rashes. Assessment and plan Acute alcohol withdrawal with DTs. Requiring intubation and mechanical ventilator Possible MRSA pneumonia alcohol detox Hypomagnesemia Thrombocytopenia Acute Alcoholic hepatitis Marijuana use admitting to smoking 1 joint daily Chronic and ongoing tobacco dependence of up to 2 packs/day Monitor vital signs Monitor CBC Monitor CMP Continue telemetry monitoring Continue vent management per ICU Continue propofol and Versed Continue CIWA protocol Antibiotics changed to vancomycin. Continue Lopressor 25 mg twice a day Continue thiamine and folic acid Monitor LFTs Continue tube feeding Critical care team and ID is on board. Labs and medication were reviewed.. Continue with symptomatic treatment. Resume home medication. Monitor labs and vitals. DVT and GI prophylaxis. Dictation was produced using [employer] software. please excuse any grammatical, word or spelling errors. Objective - Vital Signs Vital signs: Vital Signs Temp 100.9 F H 08/12/23 08:00 Pulse 106 H 08/12/23 09:00 Resp 21 08/12/23 09:00 BP 112/80 08/10/23 02:00 Pulse Ox 95 08/12/23 09:00 FiO2 50 08/12/23 08:00 Intake & Output 08/11/23 08/12/23 08/12/23 18:59 06:59 18:59 Intake Total 2082.840 2542.117 497.571 Output Total 1630 1755 390 Balance 452.840 787.117 107.571 Weight 79.2 kg 81.7 kg Intake: IV 1336 1736 412 Piperacillin-Tazobactam 3 200 100 200 .375 gm In Sodium Chloride 0.9% 100 ml @ 25 mls/hr IVPB Q8HR [facility] Rx# :[id number] Pressure Bag 36 36 12 Sodium Chloride 0.9% 1, 600 600 200 000 ml @ 50 mls/hr IV . Q20H [facility] Rx#:[id number] Vancomycin 1,500 mg In 500 1000 Sodium Chloride 0.9% 500 ml 500 ml @ 167 mls/hr IVPB Q8H [facility] Rx#: [id number] Intake, IV Titration 238.840 68.117 26.571 Amount Midazolam HCl 200 mg In 106.957 Sodium Chloride 0.9% 60 ml @ 1 MG/HR 0.5 mls/hr IV .Q24H [facility] Rx#: [id number] propofoL 1,000 mg In 131.883 68.117 26.571 Empty Bag 1 bag @ 15 MCG/ KG/MIN 6.736 mls/hr IV . [id number] [facility] Rx#:[id number] Tube Feeding 448 708 59 Other 60 30 Output: Urine 1630 1755 390 Other: Voiding Method Indwelling Catheter Indwelling Catheter Indwelling Catheter ABP, PAP, CO, CI - Last Documented Arterial Blood Pressure 132/69 - Labs CBC & Chem 7: 08/13/23 03:20 08/13/23 03:20 Labs: Abnormal Lab Results - Last 24 Hours (Table) 08/11/23 08/11/23 08/12/23 Range/Units 12:52 12:52 00:07 WBC (3.8-10.6) k/uL RBC (4.30-5.90) m/uL MCV (80.0-100.0) fL Neutrophils # (1.3-7.7) k/uL Monocytes # (0-1.0) k/uL ABG pH (7.35-7.45) ABG pCO2 (35-45) mmHg ABG pO2 (83-108) mmHg ABG Total CO2 (19-24) mmol/L Chloride (98-107) mmol/L Creatinine (0.66-1.25) mg/dL Glucose (74-99) mg/dL POC Glucose (mg/dL) 126 H (70-110) mg/dL C-Reactive Protein 35.8 H (<1.0) mg/dL Procalcitonin 0.17 H (0.02-0.09) ng/mL 08/12/23 08/12/23 08/12/23 Range/Units 05:48 05:50 05:50 WBC 13.6 H (3.8-10.6) k/uL RBC 3.88 L (4.30-5.90) m/uL MCV 103.2 H (80.0-100.0) fL Neutrophils # 9.5 H (1.3-7.7) k/uL Monocytes # 2.1 H (0-1.0) k/uL ABG pH 7.47 H (7.35-7.45) ABG pCO2 34 L (35-45) mmHg ABG pO2 76 L (83-108) mmHg ABG Total CO2 26 H (19-24) mmol/L Chloride 114 H (98-107) mmol/L Creatinine 0.61 L (0.66-1.25) mg/dL Glucose 122 H (74-99) mg/dL POC Glucose (mg/dL) (70-110) mg/dL C-Reactive Protein (<1.0) mg/dL Procalcitonin (0.02-0.09) ng/mL 08/12/23 Range/Units 06:09 WBC (3.8-10.6) k/uL RBC (4.30-5.90) m/uL MCV (80.0-100.0) fL Neutrophils # (1.3-7.7) k/uL Monocytes # (0-1.0) k/uL ABG pH (7.35-7.45) ABG pCO2 (35-45) mmHg ABG pO2 (83-108) mmHg ABG Total CO2 (19-24) mmol/L Chloride (98-107) mmol/L Creatinine (0.66-1.25) mg/dL Glucose (74-99) mg/dL POC Glucose (mg/dL) 114 H (70-110) mg/dL C-Reactive Protein (<1.0) mg/dL Procalcitonin (0.02-0.09) ng/mL Microbiology - Last 24 Hours (Table) 08/10/23 09:30 Gram Stain - Final Bronchoalviolar Lavage - Left Bronchial Washings Culture - Final Methicillin resist S. aureus 08/10/23 09:30 Acid Fast Bacilli Smear - Preliminary Bronchoalviolar Lavage - Left
--- NOTE | 2023-08-13 10:42 | P.PN ---
Subjective Progress Note Date: 08/13/23 Principal diagnosis: Respiratory failure. Acute alcohol withdrawal This is a 43-year-old male patient who resides in the [place] area who had recently been admitted to [facility] for alcohol withdrawal. He was admitting to drinking 1 L of tequila per day. He smokes 2 packs of cigarettes per day and 1 marijuana joint per day. States his last dri nk was at noon on the 12th prior to his admission to [place]. He was sent here today by EMS for acute withdrawal syndromedelirium. Chest x-ray revealed no acute pulmonary process. EKG revealed sinus tachycardia. White count 8.3. Hemoglobin 16.3. Platelets 70,000. Sodium 137. Potassium 4.2. Bicarb 29. BUN 22. Creatinine 1.12. AST 164. ALT 140. Lipase 146. Viral screen negative. Since his arrival he has required 10 mg of Ativan. He is still quite restless. Precedex drip was ordered and he will be admitted to the intensive care unit. He is seen today in consultation in the emergency department. He has restless. Walking around in his room. Security is at the bedside. Precedex had not been started yet. He is maintaining O2 saturations in the 90s on room air. He is tachycardic in the 110s, 120s. Blood pressure stable. Afebrile. Patient was reevaluated today on 08/07/2023, patient developed worsening picture of alcohol withdrawal and acute delirium tremens, requiring intubation and mechanical ventilation. He is now on assist-control 18 tidal volume 450 FiO2 35% and PEEP of 5, ABG showed a pO2 of 148 pCO2 34 pH of 7.44 hence his rate was cut down to 16 and his tidal volume kept the same FiO2 down to 35% patient is still requiring significant amount of sedation including propofol at 60 mcg/kg/min, Versed was added this morning mostly because of persistent agitation in spite of propofol on board. CBC is relatively normal basic metabolic profile is normal except for low potassium of 3.3 chest x-ray is showing mostly left basilar atelectasis. Doubt pneumonia. Screening for influenza A B, RSV and COVID-19 all negative patient remains on the CIWA protocol, and spite of being on Precedex yesterday, patient continued to develop alcohol withdrawal requiring intubation mechanical ventilation. Patient was reevaluated today on 08/08/2023, patient remains in the ICU, intubated and mechanically ventilated. Patient is on assist-control rate of 16 tidal volume 450 FiO2 35% PEEP of 5. Patient is still requiring significant amount of sedation to keep him calm, otherwise he gets agitated, restless, and becomes asynchronous with mechanical ventilation. He is now on propofol at 50 mcg/kg/min and Versed at 15 mg/h. IV fluid is running at 2.9 normal saline 75 cc/h. Chest x-ray is showing more atelectasis, and more pleural effusions, hence I am cutting down his IV fluid to KVO and I am giving him Lasix 40 mg IV push x 1. In addition considering the patient is showing a low-grade temp with a temp of 99 today, I am recommending Zosyn to be started empirically. Patient is a good set up for aspiration pneumonia. And the findings of atelectasi s/infiltrates are noted in both lungs today. Left more so than right. Patient is receiving enteral feeding. He is also on GI DVT prophylaxis. His WBC count is 9.9 hemoglobin is 15 electrolytes are normal BUN is normal creatinine is normal, liver enzymes are improving steadily Patient was reevaluated today on 08/09/2023, patient remains in the ICU intubated and mechanically ventilated on assist-control rate of 16 tidal volume 450 FiO2 35% PEEP of 5 ABG showed a pO2 of 82 pCO2 36 pH of 7.43. Patient continues to require significant amount of sedation including propofol at 50 mcg/kg/min Vers ed at 15 mg/h. Patient is also 1.9 normal saline at 75 cc/h and receiving vital HP. Empirically the patient is on Zosyn, endotracheal tube seems to be high, and this will be advanced down 3 cm today. Chest x-ray continues to show some atelectasis and opacities at the bases especially at the left base, patient is empirically on Zosyn. WBC count is 12.8 hemoglobin 15.3. Basic metabolic profile is normal bicarb is 21 renal profile is normal Progress note dated August 11, 2023. The patient was seen today in room 266. The patient continues on mechanical ventilation. He is on volume assist-control, rate 16, tidal volume 500, FiO2 50%, PEEP of 5. Blood gases show pO2 79, pCO2 37, pH is 7.45. The patient continues on propofol at 50 mcg/kg/min, Versed at 50 mg an hour, and saline at 50 cc an hour. The patient is receiving vital high-protein at 53 cc an hour. The patient was admitted to the hospital on August 06, and was intubated the following day on the . Today, we will attempt a daily interruption of sedation. In addition, the patient will have some Haldol, and Seroquel, added to his regimen, for additional sedation. White count 11.4, hemoglobin 13.5, hematocrit 41, with a normal platelet count. Sodium 138, potassium 3.9, chlorides 111, CO2 23, BUN 12, creatinine 0.57. Glucose is 114. Magnesium 1.9. Progress note dated August 12, 2023. 43-year-old male seen today in room 266. The patient remains on the mechanical ventilator. He is on volume assist-control, rate 16, tidal volume 500, FiO2 50%, PEEP of 5. Blood gases show pO2 of 76, pCO2 34, pH is 7.47. This blood gas is consistent with a mild respiratory alkalosis. The patient is getting propofol at 10 mcg/kg/min, saline at 50 cc an hour, and vital high-protein at 59 cc an hour. That is goal. The patient continues on Zosyn, and vancomycin. The BAL sampling, did reveal evidence of methicillin-resistant Staph aureus, hence the vancomycin. White count 13.6, hemoglobin 13.4, hematocrit 40.1, platelet count 250,000. Sodium 139, potassium 4, chlorides 114, CO2 24, BUN 14, creatinine 0.61. Calcium 8.6. Magnesium 2.1. BAL sampling from August 10, was positive for methicillin-resistant Staph aureus. This x-ray shows bilateral effusions, which are relatively small, and bibasilar atelectasis. Progress note dated August 13, 2023. 43-year-old male seen today in room 266. Patient remains on mechanical ventilator. Ventilator settings include volume assist-control, rate 16, tidal volume 500, FiO2 50%, PEEP of 5. Blood gases show pO2 of 83, pCO2 33, and a pH of 7.48. The patient is getting propofol at 20 mcg/kg/min, saline at 50 cc an hour, and tube feedings with vital HP at goal, which is 59 cc an hour. Today, we will attempt another daily interruption of sedation, and potentially a spontaneous breathing trial. I did alert the nurse to the effect, that should he not progress, he may require tracheostomy and PEG tube placement by the end of the week. Current labs include a white count 16.9, hemoglobin 13.3, hematocrit 39.7, platelet count 270,000. Sodium 139, potassium 3.6, chlorides 110, CO2 22, BUN 14, creatinine 0.52. Glucose is 124. Calcium 8.7. Bronchial washings show evidence of methicillin-resistant Staph aureus. This was done on August 10. Chest x-ray revealed some mild interstitial edema, and small effusions or basilar atelectasis. Objective - Vital Signs Vital signs: Vital Signs Temp 99.1 F 08/13/23 08:00 Pulse 109 H 08/13/23 10:00 Resp 21 08/13/23 10:00 BP 133/90 08/13/23 06:00 Pulse Ox 96 08/13/23 10:00 FiO2 50 08/13/23 08:57 Intake & Output 08/12/23 08/13/23 08/13/23 18:59 06:59 18:59 Intake Total 3061.832 4966.252 408.733 Output Total 865 1455 400 Balance 839.749 3146.252 8.733 Weight 79.1 kg Intake: IV 1336 1636 212 Piperacillin-Tazobactam 3 200 .375 gm In Sodium Chloride 0.9% 100 ml @ 25 mls/hr IVPB Q8HR [facility] Rx# :[id number] Pressure Bag 36 36 12 Sodium Chloride 0.9% 1, 600 600 200 000 ml @ 50 mls/hr IV . Q20H [facility] Rx#:[id number] Vancomycin 1,500 mg In 500 1000 Sodium Chloride 0.9% 500 ml 500 ml @ 167 mls/hr IVPB Q8H [facility] Rx#: [id number] Intake, IV Titration 52.020 211.252 48.733 Amount propofoL 1,000 mg In 52.020 211.252 48.733 Empty Bag 1 bag @ 15 MCG/ KG/MIN 6.736 mls/hr IV . [id number] [facility] Rx#:[id number] Tube Feeding 118 767 118 Other 60 30 Output: Urine 865 1455 400 Other: Voiding Method Indwelling Catheter Indwelling Catheter Indwelling Catheter # Bowel Movements 0 ABP, PAP, CO, CI - Last Documented Arterial Blood Pressure 170/78 - Exam No acute distress, sedated, with an orally placed endotracheal tube. HEENT examination is grossly unremarkable. Neck supple. Full range of motion. No adenopathy thyromegaly or neck vein distention. Cardiovascular examination reveals regular rhythm rate. S1-S2 normal. No S3 or S4. No discernible murmur noted. Heart sounds are distant. Heart rate 101 bpm. Lungs reveal mostly clear breath sounds. Minimal rhonchi. No wheezes or c rackles. Saturation of 96 %. Abdomen soft, with bowel sounds. No masses or tenderness. Extremities are intact. No cyanosis clubbing or edema. Skin is without rash or lesion. Neurologic examination cannot be assessed at this time. - Labs CBC & Chem 7: 08/13/23 03:20 08/13/23 03:20 Labs: Abnormal Lab Results - Last 24 Hours (Table) 08/12/23 08/13/23 08/13/23 Range/Units 23:57 03:20 03:20 WBC 16.9 H (3.8-10.6) k/uL RBC 3.85 L (4.30-5.90) m/uL MCV 103.0 H (80.0-100.0) fL Neutrophils # 13.1 H (1.3-7.7) k/uL Monocytes # 1.7 H (0-1.0) k/uL ABG pH (7.35-7.45) ABG pCO2 (35-45) mmHg ABG HCO3 (21-25) mmol/L ABG Total CO2 (19-24) mmol/L ABG O2 Saturation (94-97) % Chloride 110 H (98-107) mmol/L Creatinine 0.52 L (0.66-1.25) mg/dL Glucose 113 H (74-99) mg/dL POC Glucose (mg/dL) 113 H (70-110) mg/dL 08/13/23 08/13/23 Range/Units 05:54 06:50 WBC (3.8-10.6) k/uL RBC (4.30-5.90) m/uL MCV (80.0-100.0) fL Neutrophils # (1.3-7.7) k/uL Monocytes # (0-1.0) k/uL ABG pH 7.49 H (7.35-7.45) ABG pCO2 34 L (35-45) mmHg ABG HCO3 26 H (21-25) mmol/L ABG Total CO2 27 H (19-24) mmol/L ABG O2 Saturation 97.1 H (94-97) % Chloride (98-107) mmol/L Creatinine (0.66-1.25) mg/dL Glucose (74-99) mg/dL POC Glucose (mg/dL) 124 H (70-110) mg/dL Microbiology - Last 24 Hours (Table) 08/11/23 12:52 Blood Culture - Preliminary Blood 08/10/23 09:30 Gram Stain - Final Bronchoalviolar Lavage - Left Bronchial Washings Culture - Final Methicillin resist S. aureus Assessment and Plan Assessment: Acute alcohol withdrawal, with respiratory failure, requiring intubation and mechanical ventilation, on August 07, 2023. Acute delirium tremens. Alcoholic liver disease. Methicillin-resistant Staph aureus tracheobronchitis/bronchopneumonia. Thrombocytopenia, secondary to alcoholic liver disease. Alcoholic hepatopathy. History of marijuana use. Tobacco dependence syndrome. Plan: Plan dated August 11, 2023. The patient continues on Versed at 50 mg an hour, propofol at 50 mcg/kg/min. In an attempt, to wean these medications down, for eventual extubation, we had some Haldol, and Seroquel. Blood gases show pO2 of 79, pCO2 of 37, pH is 7.45. The patient continues on tube feedings with vital HP at 53 cc an hour. The patient will have a daily interruption of sedation today. The patient's been intubated since August 07. No additional recommendations are made. Labs, x-rays, and medications are all reviewed. Prognosis is guarded. We will continue to follow the patient, make recommendations along the way. Plan dated August 20, 2023. The patient is currently on a small dose of propofol, i.e., 10 mcg/kg/min. He was weaned off the Versed. Yesterday, despite being off of all sedation, the pa tient was poorly responsive. We did not attempt a spontaneous breathing trial. We will do a DIS/SBT today. The patient currently remains on Zosyn and vancomycin. The BAL sampling showed evidence of MRSA. Labs, x-rays, medications are reviewed. We will continue to follow make recommendations along the way. Were hoping that his neurologic status improves, so that we can move towards weaning and extubation. Will continue to follow and make recommendations. Prognosis is guarded. Plan dated August 13, 2023. The patient remains on the mechanical ventilator. He remains on propofol for s edation, 20 mcg/kg/min. The patient did poorly with his daily interruption of sedation yesterday. He apparently started to have nausea with vomiting, and his vital signs became unstable. The patient never had a spontaneous breathing trial. Currently, we will attempt another daily interruption of sedation today. If he is not progressing, he may require tracheostomy and PEG tube by the end of the week. Labs, x-rays, medications are reviewed. The patient's overall prognosis remains guarded. He continues on vancomycin for methicillin-resistant Staph aureus tracheobronchitis/bronchopneumonia. We will continue to follow make recommendations along the way. Time with Patient: Greater than 30
[2023-08-13 10:46] LABS: ABG Base Excess 0.6 mmol/L; ABG HCO3 26 mmol/L (21-25); ABG Oxygen Saturation 95.1 % (94-97); ABG PCO2 43 mmHg (35-45); ABG PH 7.39 (7.35-7.45); ABG PO2 78 mmHg (83-108); ABG TCO2 27 mmol/L (19-24)
--- NOTE | 2023-08-13 11:23 | P.PN ---
Subjective Progress Note Date: 08/13/23 Principal diagnosis: Reason for follow-up is fever pneumonia Patient is a 43-year-old male with a past medical history significant for alcohol and drug abuse patient was at [place] undergoing rehabilitation for alcohol abuse the patient was noticed to be undergoing alcohol withdrawal for the patient was brought to the hospital did require intubation because of h is respiratory status patient did have a fever, patient did have a BAL on 08/10/2023 growing MRSA. On today's evaluation that is 08/13/2023, Patient did have improvement of his fever pattern with a temperature of 99.1 F this morning patient is hemodynamically stable not requiring any pressor support is currently on a 50% FiO2 undergoing weaning trial for possible extubation per the nursing staff no diarrhea has been reported. Patient white count is 16.9, creatinine 0.52 vancomycin trough is 14.7 blood culture repeat so far pending Objective - Vital Signs Vital signs: Vital Signs Temp 99.1 F 08/13/23 08:00 Pulse 109 H 08/13/23 10:00 Resp 21 08/13/23 10:00 BP 133/90 08/13/23 06:00 Pulse Ox 96 08/13/23 10:00 FiO2 50 08/13/23 10:38 Intake & Output 08/12/23 08/13/23 08/13/23 18:59 06:59 18:59 Intake Total 3586.812 4698.252 408.733 Output Total 865 1455 400 Balance 802.029 6945.252 8.733 Weight 79.1 kg Intake: IV 1336 1636 212 Piperacillin-Tazobactam 3 200 .375 gm In Sodium Chloride 0.9% 100 ml @ 25 mls/hr IVPB Q8HR [facility] Rx# :[id number] Pressure Bag 36 36 12 Sodium Chloride 0.9% 1, 600 600 200 000 ml @ 50 mls/hr IV . Q20H [facility] Rx#:[id number] Vancomycin 1,500 mg In 500 1000 Sodium Chloride 0.9% 500 ml 500 ml @ 167 mls/hr IVPB Q8H [facility] Rx#: [id number] Intake, IV Titration 52.020 211.252 48.733 Amount propofoL 1,000 mg In 52.020 211.252 48.733 Empty Bag 1 bag @ 15 MCG/ KG/MIN 6.736 mls/hr IV . [id number] [facility] Rx#:[id number] Tube Feeding 118 767 118 Other 60 30 Output: Urine 865 1455 400 Other: Voiding Method Indwelling Catheter Indwelling Catheter Indwelling Catheter # Bowel Movements 0 ABP, PAP, CO, CI - Last Documented Arterial Blood Pressure 170/78 - Exam GENERAL DESCRIPTION: Middle-age male intubated on the vent RESPIRATORY SYSTEM: Unlabored breathing , decreased breath sounds at bases HEART: S1 S2 regular rate and rhythm , ABDOMEN: Soft , no tenderness EXTREMITIES: No edema feet - Labs CBC & Chem 7: 08/13/23 03:20 08/13/23 03:20 Labs: Abnormal Lab Results - Last 24 Hours (Table) 08/12/23 08/13/23 08/13/23 Range/Units 23:57 03:20 03:20 WBC 16.9 H (3.8-10.6) k/uL RBC 3.85 L (4.30-5.90) m/uL MCV 103.0 H (80.0-100.0) fL Neutrophils # 13.1 H (1.3-7.7) k/uL Monocytes # 1.7 H (0-1.0) k/uL ABG pH (7.35-7.45) ABG pCO2 (35-45) mmHg ABG pO2 (83-108) mmHg ABG HCO3 (21-25) mmol/L ABG Total CO2 (19-24) mmol/L ABG O2 Saturation (94-97) % Chloride 110 H (98-107) mmol/L Creatinine 0.52 L (0.66-1.25) mg/dL Glucose 113 H (74-99) mg/dL POC Glucose (mg/dL) 113 H (70-110) mg/dL 08/13/23 08/13/23 08/13/23 Range/Units 05:54 06:50 10:44 WBC (3.8-10.6) k/uL RBC (4.30-5.90) m/uL MCV (80.0-100.0) fL Neutrophils # (1.3-7.7) k/uL Monocytes # (0-1.0) k/uL ABG pH 7.49 H (7.35-7.45) ABG pCO2 34 L (35-45) mmHg ABG pO2 78 L (83-108) mmHg ABG HCO3 26 H 26 H (21-25) mmol/L ABG Total CO2 27 H 27 H (19-24) mmol/L ABG O2 Saturation 97.1 H (94-97) % Chloride (98-107) mmol/L Creatinine (0.66-1.25) mg/dL Glucose (74-99) mg/dL POC Glucose (mg/dL) 124 H (70-110) mg/dL Microbiology - Last 24 Hours (Table) 08/11/23 12:52 Blood Culture - Preliminary Blood 08/10/23 09:30 Gram Stain - Final Bronchoalviolar Lavage - Left Bronchial Washings Culture - Final Methicillin resist S. aureus Assessment and Plan (1) Sepsis Current Visit: Yes Status: Acute Code(s): A41.9 - SEPSIS, UNSPECIFIED ORGANISM SNOMED Code(s): 38206985 (2) Pneumonia Current Visit: Yes Status: Acute Code(s): J18.9 - PNEUMONIA, UNSPECIFIED ORGANISM SNOMED Code(s): 068237272 (3) MRSA (methicillin resistant staph aureus) culture positive Current Visit: Yes Status: Acute Code(s): Z22.322 - CARRIER OR SUSPECTED CA RRIER OF METHICILLIN RESIS STAPH SNOMED Code(s): 113157026 Plan: 1patient with sepsis in this patient who did have fever tachycardia elevated white count in this patient admitted to hospital with alcohol withdrawal symptoms and concern for possible component of aspiration pneumonitis with a sputum now growing MRSA 2-blood cultures so far negative 3-patient did have improvement in his fever pattern however slight worsening of the white count and will monitor, patient to continue with vancomycin pharmacy to dose and monitor clinical course Dictation was produced using [employer] dictation software. please excuse any grammatical, word or spelling errors. Time with Patient: Less than 30
[2023-08-13] MEDS: VANCOMYCIN 1,750 MG in SODIUM CHLORIDE 0.9% 500 ML 500 ML IVPB SCH (11:40)
[2023-08-13 11:49] LABS: Glucose,Whole Blood 125 mg/dL (70-110)
[2023-08-13] MEDS: POTASSIUM CHLORIDE 10 MEQ in WATER FOR INJECTION 1 100ML.BAG IVPB SCH (13:06)
--- NOTE | 2023-08-14 08:19 | XR ---
EXAMINATION TYPE: XR chest 1V portable DATE OF EXAM: 08/14/2023 Comparison: 08/13/2023 Clinical History: 43-year-old male mechanical ventilation Findings: Heart is upper limits of normal in size. Interstitial prominence has increased. Small partially layer ing left pleural effusion. Interval extubation. Removal of NG tube. Impression: 1. Borderline heart size. Slight worsening in pulmonary vascular congestion. 2. Small partially layering left pleural effusion with adjacent atelectasis and/or consolidation may be slightly increased as well.
--- NOTE | 2023-08-14 10:04 | P.PN ---
Subjective Progress Note Date: 08/13/23 patient is of 43-year-old gentleman with past medical significant for alcohol abuse who presented to the ER for alcohol detox. Patient was sent to the ER from [place] where he was admitted on Friday for alcohol detox. Patient admits to drinking 1 L of alcohol daily. Denies any use of recreational drugs. Patient stated that he wanted to quit drinking as it was causing problems for his family. Denies any auditory or visualizations. There is no complaint of suicidal thoughts. Patient was being treated with oral Ativan at [place] but patient was getting restless and tachycardic. Patient was also complaining of increased shakiness. There was complaint of nausea and vomiting. Denies abdominal pain. Denies any chest pain or shortness of breath. Initial lab work done in the ER showed WBC 8.3, hemoglobin 13.3, platelet count 70, sodium 130 potassium 4.2, BUN 22, creatinine 1.12, magnesium 1.4 AST 164, ALT 140 Influenza A not detected Influenza B not detected RSV not detected COVID-19 not detected UA negative for infection EKG done in the ER showed heart rate of 120 , no ST segment elevation or depression seen, no T-wave inversions seen. Chest x-ray done in the ER no acute cardiopulmonary process Patient admitted to internal medicine service 08/07. Patient seen examined. Patient's CIWA scores were high, was started on Precedex drip yesterday afternoon and was transferred to ICU. Patient continued to be agitated, was intubated and placed on propofol and Versed. Currently on vent. 08/08. Patient seen and examined. Continues to be sedated on propofol and Versed. Patient having low-grade fevers, started on IV Zosyn. 08/09. Patient seen and examined. Blood work done this morning showed WBC 12.8, hemoglobin 15.3, platelet count 82 sodium 136, potassium 3.3, BUN 12, creatinine 0.64. Patient afebrile overnight. Still tachycardic 08/10. Patient seen and examined. Lab work done this morning showed WBC 12.3, hemoglobin 14.6, platelet count 99, sodium 110, potassium 3.8, BUN 13, creatinine 0.59,. Continues to be intubated and sedated 08/11. Patient seen examined. Labs done showed WBC 9.4, hemoglobin 13.5, platelet count 152, sodium 138, potassium 3.9, BUN 12, creatinine 0.57. Patient underwent bronchoscopy yesterday. Critical care added Haldol and Seroquel, want to wean down on sedation. 08/12/2023 Patient is in the MICU. Currently intubated and on mechanical ventilator. Sedation was off briefly. BAL culture is growing MRSA status post bronchoscopy on 08/10/2023. Currently on vancomycin. Patient is on IV hydration with normal saline at 50 mL's per hour. On alcohol withdrawal protocol. Chest x-ray showed ongoing small bilateral pleural effusions with adjacent atelectasis and consolidation. 08/13/2023 Patient is extubated today. Currently in the MICU. Drowsy and lethargic. Requiring 2 L oxygen by nasal cannula. Afebrile. Patient is being continued on antibiotics vancomycin due to BAL cultures showing MRSA. Laboratory data showed worsening WBC 216.9 today. Hemoglobin 13.3 and platelets 270, sodium 1:30 potassium 3.6 chloride 110 bicarb is 22 BUN 40 and creatinine 0.520 blood sugar 113. REVIEW OF SYSTEMS: Cannot be obtained as patient is currently intubated PHYSICAL EXAMINATION: GENERAL: The patient is intubated HEENT: Pupils are round and equally reacting to light. EOMI. No scleral icterus. No conjunctival pallor. Normocephalic, atraumatic. No pharyngeal erythema. No thyromegaly. CARDIOVASCULAR: S1 and S2 present. No murmurs, rubs, or gallops. Tachycardic PULMONARY: Chest is clear to auscultation, no wheezing or crackles. ABDOMEN: Soft, nontender, nondistended, normoactive bowel sounds. No palpable organomegaly. MUSCULOSKELETAL: No joint swelling or deformity. EXTREMITIES: No cyanosis, clubbing, or pedal edema. NEUROLOGICAL: Intubated and sedated. SKIN: No rashes. Assessment and plan Acute alcohol withdrawal with DTs. Requiring intubation and mechanical ventilator. Extubated on 08/13/2023 Possible MRSA pneumonia with BAL cultures positive for MRSA. Severe alcohol abuse Hypomagnesemia Thrombocytopenia Acute Alcoholic hepatitis Marijuana use admitting to smoking 1 joint daily Chronic and ongoing tobacco dependence of up to 2 packs/day Monitor vital signs Monitor CBC Monitor CMP Continue telemetry monitoring Continue vent management per ICU Continue propofol and Versed Continue CIWA protocol Antibiotics changed to vancomycin. Continue Lopressor 25 mg twice a day Continue thiamine and folic acid Monitor LFTs Continue tube feeding Critical care team and ID is on board. Labs and medication were reviewed.. Continue with symptomatic treatment. Resume home medication. Monitor labs and vitals. DVT and GI prophylaxis. Dictation was produced using [employer] dictation software. please excuse any grammatical, word or spelling errors. Objective - Vital Signs Vital signs: Vital Signs Temp 98.5 F 08/13/23 17:00 Pulse 120 H 08/13/23 19:00 Resp 25 H 08/13/23 19:00 BP 133/90 08/13/23 06:00 Pulse Ox 95 08/13/23 19:00 FiO2 50 08/13/23 10:38 Intake & Output 08/13/23 08/13/23 08/14/23 06:59 18:59 06:59 Intake Total 2674.252 1332.733 53 Output Total 1455 1155 150 Balance 1219.252 177.733 -97 Weight 79.1 kg Intake: IV 1636 1136 53 Potassium Chloride 10 meq 200 In Water For Injection 1 100ml.bag @ 100 mls/hr IVPB Q1HR [facility] Rx#: [id number] Pressure Bag 36 36 3 Sodium Chloride 0.9% 1, 600 400 50 000 ml @ 50 mls/hr IV . Q20H [facility] Rx#:[id number] Vancomycin 1,500 mg In 1000 500 Sodium Chloride 0.9% 500 ml 500 ml @ 167 mls/hr IVPB Q8H [facility] Rx#: [id number] Intake, IV Titration 211.252 48.733 Amount propofoL 1,000 mg In 211.252 48.733 Empty Bag 1 bag @ 15 MCG/ KG/MIN 6.736 mls/hr IV . [id number] [facility] Rx#:[id number] Tube Feeding 767 118 Other 60 30 Output: Urine 1455 1155 150 Other: Voiding Method Indwelling Catheter Indwelling Catheter # Bowel Movements 0 1 ABP, PAP, CO, CI - Last Documented Arterial Blood Pressure 152/69 - Labs CBC & Chem 7: 08/13/23 03:20 08/13/23 11:45 Labs: Abnormal Lab Results - Last 24 Hours (Table) 08/12/23 08/13/23 08/13/23 Range/Units 23:57 03:20 03:20 WBC 16.9 H (3.8-10.6) k/uL RBC 3.85 L (4.30-5.90) m/uL MCV 103.0 H (80.0-100.0) fL Neutrophils # 13.1 H (1.3-7.7) k/uL Monocytes # 1.7 H (0-1.0) k/uL ABG pH (7.35-7.45) ABG pCO2 (35-45) mmHg ABG pO2 (83-108) mmHg ABG HCO3 (21-25) mmol/L ABG Total CO2 (19-24) mmol/L ABG O2 Saturation (94-97) % Chloride 110 H (98-107) mmol/L Creatinine 0.52 L (0.66-1.25) mg/dL Glucose 113 H (74-99) mg/dL POC Glucose (mg/dL) 113 H (70-110) mg/dL 08/13/23 08/13/23 08/13/23 Range/Units 05:54 06:50 10:44 WBC (3.8-10.6) k/uL RBC (4.30-5.90) m/uL MCV (80.0-100.0) fL Neutrophils # (1.3-7.7) k/uL Monocytes # (0-1.0) k/uL ABG pH 7.49 H (7.35-7.45) ABG pCO2 34 L (35-45) mmHg ABG pO2 78 L (83-108) mmHg ABG HCO3 26 H 26 H (21-25) mmol/L ABG Total CO2 27 H 27 H (19-24) mmol/L ABG O2 Saturation 97.1 H (94-97) % Chloride (98-107) mmol/L Creatinine (0.66-1.25) mg/dL Glucose (74-99) mg/dL POC Glucose (mg/dL) 124 H (70-110) mg/dL 08/13/23 Range/Units 11:47 WBC (3.8-10.6) k/uL RBC (4.30-5.90) m/uL MCV (80.0-100.0) fL Neutrophils # (1.3-7.7) k/uL Monocytes # (0-1.0) k/uL ABG pH (7.35-7.45) ABG pCO2 (35-45) mmHg ABG pO2 (83-108) mmHg ABG HCO3 (21-25) mmol/L ABG Total CO2 (19-24) mmol/L ABG O2 Saturation (94-97) % Chloride (98-107) mmol/L Creatinine (0.66-1.25) mg/dL Glucose (74-99) mg/dL POC Glucose (mg/dL) 125 H (70-110) mg/dL Microbiology - Last 24 Hours (Table) 08/11/23 12:52 Blood Culture - Preliminary Blood
--- NOTE | 2023-08-14 11:07 | P.PN ---
Subjective Progress Note Date: 08/14/23 Principal diagnosis: Respiratory failure. Acute alcohol withdrawal This is a 43-year-old male patient who resides in the [place] area who had recently been admitted to [facility] for alcohol withdrawal. He was admitting to drinking 1 L of tequila per day. He smokes 2 packs of cigarettes per day and 1 marijuana joint per day. States his last dri nk was at noon on the 12th prior to his admission to [facility]. He was sent here today by EMS for acute withdrawal syndromedelirium. Chest x-ray revealed no acute pulmonary process. EKG revealed sinus tachycardia. White count 8.3. Hemoglobin 16.3. Platelets 70,000. Sodium 137. Potassium 4.2. Bicarb 29. BUN 22. Creatinine 1.12. AST 164. ALT 140. Lipase 146. Viral screen negative. Since his arrival he has required 10 mg of Ativan. He is still quite restless. Precedex drip was ordered and he will be admitted to the intensive care unit. He is seen today in consultation in the emergency department. He has restless. Walking around in his room. Security is at the bedside. Precedex had not been started yet. He is maintaining O2 saturations in the 90s on room air. He is tachycardic in the 110s, 120s. Blood pressure stable. Afebrile. Patient was reevaluated today on 08/07/2023, patient developed worsening picture of alcohol withdrawal and acute delirium tremens, requiring intubation and mechanical ventilation. He is now on assist-control 18 tidal volume 450 FiO2 35% and PEEP of 5, ABG showed a pO2 of 148 pCO2 34 pH of 7.44 hence his rate was cut down to 16 and his tidal volume kept the same FiO2 down to 35% patient is still requiring significant amount of sedation including propofol at 60 mcg/kg/min, Versed was added this morning mostly because of persistent agitation in spite of propofol on board. CBC is relatively normal basic metabolic profile is normal except for low potassium of 3.3 chest x-ray is showing mostly left basilar atelectasis. Doubt pneumonia. Screening for influenza A B, RSV and COVID-19 all negative patient remains on the CIWA protocol, and spite of being on Precedex yesterday, patient continued to develop alcohol withdrawal requiring intubation mechanical ventilation. Patient was reevaluated today on 08/08/2023, patient remains in the ICU, intubated and mechanically ventilated. Patient is on assist-control rate of 16 tidal volume 450 FiO2 35% PEEP of 5. Patient is still requiring significant amount of sedation to keep him calm, otherwise he gets agitated, restless, and becomes asynchronous with mechanical ventilation. He is now on propofol at 50 mcg/kg/min and Versed at 15 mg/h. IV fluid is running at 2.9 normal saline 75 cc/h. Chest x-ray is showing more atelectasis, and more pleural effusions, hence I am cutting down his IV fluid to KVO and I am giving him Lasix 40 mg IV push x 1. In addition considering the patient is showing a low-grade temp with a temp of 99 today, I am recommending Zosyn to be started empirically. Patient is a good set up for aspiration pneumonia. And the findings of atelectasi s/infiltrates are noted in both lungs today. Left more so than right. Patient is receiving enteral feeding. He is also on GI DVT prophylaxis. His WBC count is 9.9 hemoglobin is 15 electrolytes are normal BUN is normal creatinine is normal, liver enzymes are improving steadily Patient was reevaluated today on 08/09/2023, patient remains in the ICU intubated and mechanically ventilated on assist-control rate of 16 tidal volume 450 FiO2 35% PEEP of 5 ABG showed a pO2 of 82 pCO2 36 pH of 7.43. Patient continues to require significant amount of sedation including propofol at 50 mcg/kg/min Vers ed at 15 mg/h. Patient is also 1.9 normal saline at 75 cc/h and receiving vital HP. Empirically the patient is on Zosyn, endotracheal tube seems to be high, and this will be advanced down 3 cm today. Chest x-ray continues to show some atelectasis and opacities at the bases especially at the left base, patient is empirically on Zosyn. WBC count is 12.8 hemoglobin 15.3. Basic metabolic profile is normal bicarb is 21 renal profile is normal Progress note dated August 11, 2023. The patient was seen today in room 266. The patient continues on mechanical ventilation. He is on volume assist-control, rate 16, tidal volume 500, FiO2 50%, PEEP of 5. Blood gases show pO2 79, pCO2 37, pH is 7.45. The patient continues on propofol at 50 mcg/kg/min, Versed at 50 mg an hour, and saline at 50 cc an hour. The patient is receiving vital high-protein at 53 cc an hour. The patient was admitted to the hospital on August 06, and was intubated the following day on the . Today, we will attempt a daily interruption of sedation. In addition, the patient will have some Haldol, and Seroquel, added to his regimen, for additional sedation. White count 11.4, hemoglobin 13.5, hematocrit 41, with a normal platelet count. Sodium 138, potassium 3.9, chlorides 111, CO2 23, BUN 12, creatinine 0.57. Glucose is 114. Magnesium 1.9. Progress note dated August 12, 2023. 43-year-old male seen today in room 266. The patient remains on the mechanical ventilator. He is on volume assist-control, rate 16, tidal volume 500, FiO2 50%, PEEP of 5. Blood gases show pO2 of 76, pCO2 34, pH is 7.47. This blood gas is consistent with a mild respiratory alkalosis. The patient is getting propofol at 10 mcg/kg/min, saline at 50 cc an hour, and vital high-protein at 59 cc an hour. That is goal. The patient continues on Zosyn, and vancomycin. The BAL sampling, did reveal evidence of methicillin-resistant Staph aureus, hence the vancomycin. White count 13.6, hemoglobin 13.4, hematocrit 40.1, platelet count 250,000. Sodium 139, potassium 4, chlorides 114, CO2 24, BUN 14, creatinine 0.61. Calcium 8.6. Magnesium 2.1. BAL sampling from August 10, was positive for methicillin-resistant Staph aureus. This x-ray shows bilateral effusions, which are relatively small, and bibasilar atelectasis. Progress note dated August 13, 2023. 43-year-old male seen today in room 266. Patient remains on mechanical ventilator. Ventilator settings include volume assist-control, rate 16, tidal volume 500, FiO2 50%, PEEP of 5. Blood gases show pO2 of 83, pCO2 33, and a pH of 7.48. The patient is getting propofol at 20 mcg/kg/min, saline at 50 cc an hour, and tube feedings with vital HP at goal, which is 59 cc an hour. Today, we will attempt another daily interruption of sedation, and potentially a spontaneous breathing trial. I did alert the nurse to the effect, that should he not progress, he may require tracheostomy and PEG tube placement by the end of the week. Current labs include a white count 16.9, hemoglobin 13.3, hematocrit 39.7, platelet count 270,000. Sodium 139, potassium 3.6, chlorides 110, CO2 22, BUN 14, creatinine 0.52. Glucose is 124. Calcium 8.7. Bronchial washings show evidence of methicillin-resistant Staph aureus. This was done on August 10. Chest x-ray revealed some mild interstitial edema, and small effusions or basilar atelectasis. Progress note dated August 14, 2023. 43-year-old male seen today in room 266. Yesterday, because of good weaning parameters, blood gas, and comfortably, the patient was successfully extubated. This occurred on August 13. The patient is currently in the ICU, room 266. The patient is on room air. The patient is getting saline at 50 cc an hour. The patient has had an uneventful period of time, postextubation. No new labs today. The nurses are looking into possible transfer, the [facility]. Objective - Vital Signs Vital signs: Vital Signs Temp 98.6 F 08/14/23 08:00 Pulse 112 H 08/14/23 08:00 Resp 30 H 08/14/23 08:00 BP 158/95 08/14/23 08:00 Pulse Ox 95 08/14/23 08:00 FiO2 50 08/13/23 10:38 Intake & Output 08/13/23 08/14/23 08/14/23 18:59 06:59 18:59 Intake Total 9020.368 4103 100 Output Total 1155 1665 185 Balance 177.733 -50 -85 Weight 76.6 kg Intake: IV 1136 1615 100 Potassium Chloride 10 meq 200 In Water For Injection 1 100ml.bag @ 100 mls/hr IVPB Q1HR [facility] Rx#: [id number] Pressure Bag 36 15 Sodium Chloride 0.9% 1, 400 600 100 000 ml @ 50 mls/hr IV . Q20H [facility] Rx#:[id number] Vancomycin 1,500 mg In 500 1000 Sodium Chloride 0.9% 500 ml 500 ml @ 167 mls/hr IVPB Q8H [facility] Rx#: [id number] Intake, IV Titration 48.733 Amount propofoL 1,000 mg In 48.733 Empty Bag 1 bag @ 15 MCG/ KG/MIN 6.736 mls/hr IV . [id number] [facility] Rx#:[id number] Tube Feeding 118 Other 30 Output: Urine 1155 1665 185 Other: Voiding Method Indwelling Catheter Indwelling Catheter Indwelling Catheter # Bowel Movements 1 ABP, PAP, CO, CI - Last Documented Arterial Blood Pressure 209/100 - Exam No acute distress, currently on room air. No respiratory distress or difficul ty. HEENT examination is grossly unremarkable. Neck supple. Full range of motion. No adenopathy thyromegaly or neck vein distention. Cardiovascular examination reveals regular rhythm rate. S1-S2 normal. No S3 or S4. No discernible murmur noted. Heart sounds are distant. Heart rate of 6 b pm. Lungs reveal mostly clear breath sounds. Minimal rhonchi. No wheezes or crackles. Saturation of 95% on room air. Abdomen soft, with bowel sounds. No masses or tenderness. Extremities are intact. No cyanosis clubbing or edema. Skin is without rash or lesion. Neurologic examination is normal at this time. - Labs CBC & Chem 7: 08/13/23 03:20 08/13/23 11:45 Labs: Abnormal Lab Results - Last 24 Hours (Table) 08/13/23 Range/Units 11:47 POC Glucose (mg/dL) 125 H (70-110) mg/dL Microbiology - Last 24 Hours (Table) 08/11/23 12:52 Blood Culture - Preliminary Blood Assessment and Plan Assessment: Acute alcohol withdrawal, with respiratory failure, requiring intubation and mechanical ventilation, on August 07, 2023. S/P successful extubation, on August 13, 2023. Acute delirium tremens. Alcoholic liver disease. Methicillin-resistant Staph aureus tracheobronchitis/bronchopneumonia. Thrombocytopenia, secondary to alcoholic liver disease. Alcoholic hepatopathy. History of marijuana use. Tobacco dependence syndrome. Plan: Plan dated August 11, 2023. The patient continues on Versed at 50 mg an hour, propofol at 50 mcg/kg/min. In an attempt, to wean these medications down, for eventual extubation, we had some Haldol, and Seroquel. Blood gases show pO2 of 79, pCO2 of 37, pH is 7.45. The patient continues on tube feedings with vital HP at 53 cc an hour. The patient will have a daily interruption of sedation today. The patient's been intubated since August 07. No additional recommendations are made. Labs, x-rays, and medications are all reviewed. Prognosis is guarded. We will continue to follow the patient, make recommendations along the way. Plan dated August 20, 2023. The patient is currently on a small dose of propofol, i.e., 10 mcg/kg/min. He was weaned off the Versed. Yesterday, despite being off of all sedation, the patient was poorly responsive. We did not attempt a spontaneous breathing trial. We will do a DIS/SBT today. The patient currently remains on Zosyn and vancomycin. The BAL sampling showed evidence of MRSA. Labs, x-rays, medications are reviewed. We will continue to follow make recommendations along the way. Were hoping that his neurologic status improves, so that we can move towards weaning and extubation. Will continue to follow and make recommendations. Prognosis is guarded. Plan dated August 13, 2023. The patient remains on the mechanical ventilator. He remains on propofol for sedation, 20 mcg/kg/min. The patient did poorly with his daily interruption of sedation yesterday. He apparently started to have nausea with vomiting, and his vital signs became unstable. The patient never had a spontaneous breathing trial. Currently, we will attempt another daily interruption of sedation today. If he is not progressing, he may require tracheostomy and PEG tube by the end of the week. Labs, x-rays, medications are reviewed. The patient's overall prognosis remains guarded. He continues on vancomycin for methicillin-resistant Staph aureus tracheobronchitis/bronchopneumonia. We will continue to follow make recommendations along the way. Plan dated August 14, 2023. The patient had excellent blood gases, weaning parameters, and cuff leak yesterday, and was successfully extubated. Currently, he is on room air. The patient is on saline at 50 cc an hour. According to the nurse, the patient will need to be transferred to an outside hospital, either [facility], or [facility]. Labs, x-rays, and medications are reviewed. The patient's overall prognosis remains guarded. We will continue to follow make recommendations along the way. The patient continues on vancomycin, for Staphylococcus aureus, tracheobronchitis/bronchopneumonia. Time with Patient: Greater than 30
[2023-08-14 12:35] LABS: Basophils # (A) 0.1 k/uL (0-0.2); Basophils % (A) 1 %; Eosinophils # (A) 0.3 k/uL (0-0.7); Eosinophils % (A) 1 %; HCT 40.1 % (39.0-53.0); HGB 13.4 gm/dL (13.0-17.5); Lymphocytes # (A) 1.3 k/uL (1.0-4.8); Lymphocytes % (A) 6 %; MCH 34.5 pg (25.0-35.0); MCHC 33.6 g/dL (31.0-37.0); MCV 102.6 fL (80.0-100.0); Macrocytosis Slight; Mean Platelet Volume 8.9; Monocytes # (A) 1.7 k/uL (0-1.0); Monocytes % (A) 8 %; Neutrophils # (A) 17.7 k/uL (1.3-7.7); Neutrophils % (A) 83 %; Platelet Count 390 k/uL (150-450); RDW 13.4 % (11.5-15.5); WBC 21.4 k/uL (3.8-10.6)
[2023-08-14 12:46] LABS: African American GFR (CKD) >90 (>60 ml/min/1.73 sqM); Anion Gap 12 mmol/L; Blood Urea Nitrogen 12 mg/dL (9-20); Calcium 9.3 mg/dL (8.4-10.2); Carbon Dioxide 22 mmol/L (22-30); Chloride 107 mmol/L (98-107); Glucose 99 mg/dL (74-99); Non-African American GFR(CKD) >90 (>60 ml/min/1.73 sqM); Potassium 3.7 mmol/L (3.5-5.1); Sodium 141 mmol/L (137-145)
[2023-08-14] MEDS: VANCOMYCIN TROUGH DUE 1 EACH MISC MISCELLANE ONE (13:09)
--- NOTE | 2023-08-14 15:30 | P.PN ---
Subjective Progress Note Date: 08/14/23 Principal diagnosis: Reason for follow-up is fever pneumonia Patient is a 43-year-old male with a past medical history significant for alcohol and drug abuse patient was at [place] undergoing rehabilitation for alcohol abuse the patient was noticed to be undergoing alcohol withdrawal for the patient was brought to the hospital did require intubation because of h is respiratory status patient did have a fever, patient did have a BAL on 08/10/2023 growing MRSA. On today's evaluation that is 08/14/2023,the patient has been extubated he is more awake alert denies any fever or any chills, patient is breathing comfortably on room air, the patient denies chest pain shortness of breath and no significant cough, patient denies abdominal pain, no nausea vomiting or diarrhea. Patient white count is up to 21.4, creatinine 0.55 vancomycin trough is 14.4 Objective - Vital Signs Vital signs: Vital Signs Temp 98.9 F 08/14/23 14:00 Pulse 98 08/14/23 14:00 Resp 18 08/14/23 14:00 BP 150/82 08/14/23 14:00 Pulse Ox 94 L 08/14/23 14:00 FiO2 50 08/13/23 10:38 Intake & Output 08/13/23 08/14/23 08/14/23 18:59 06:59 18:59 Intake Total 0515.024 7536 100 Output Total 1155 1665 185 Balance 177.733 -50 -85 Weight 76.6 kg 76.6 kg Intake: IV 1136 1615 100 Potassium Chloride 10 meq 200 In Water For Injection 1 100ml.bag @ 100 mls/hr IVPB Q1HR [facility] Rx#: [id number] Pressure Bag 36 15 Sodium Chloride 0.9% 1, 400 600 100 000 ml @ 50 mls/hr IV . Q20H [facility] Rx#:[id number] Vancomycin 1,500 mg In 500 1000 Sodium Chloride 0.9% 500 ml 500 ml @ 167 mls/hr IVPB Q8H [facility] Rx#: [id number] Intake, IV Titration 48.733 Amount propofoL 1,000 mg In 48.733 Empty Bag 1 bag @ 15 MCG/ KG/MIN 6.736 mls/hr IV . [id number] [facility] Rx#:[id number] Tube Feeding 118 Other 30 Output: Urine 1155 1665 185 Other: Voiding Method Indwelling Catheter Indwelling Catheter Indwelling Catheter # Bowel Movements 1 ABP, PAP, CO, CI - Last Documented Arterial Blood Pressure 209/100 - Exam GENERAL DESCRIPTION: Middle-age male intubated on the vent RESPIRATORY SYSTEM: Unlabored breathing , decreased breath sounds at bases HEART: S1 S2 regular rate and rhythm , ABDOMEN: Soft , no tenderness EXTREMITIES: No edema feet - Labs CBC & Chem 7: 08/14/23 11:33 08/14/23 11:33 Labs: Abnormal Lab Results - Last 24 Hours (Table) 08/14/23 08/14/23 Range/Units 11:33 11:33 WBC 21.4 H (3.8-10.6) k/uL RBC 3.90 L (4.30-5.90) m/uL MCV 102.6 H (80.0-100.0) fL Neutrophils # 17.7 H (1.3-7.7) k/uL Monocytes # 1.7 H (0-1.0) k/uL Creatinine 0.55 L (0.66-1.25) mg/dL Microbiology - Last 24 Hours (Table) 08/11/23 12:52 Blood Culture - Preliminary Blood Assessment and Plan (1) Sepsis Current Visit: Yes Status: Acute Code(s): A41.9 - SEPSIS, UNSPECIFIED ORGANISM SNOMED Code(s): 38357642 (2) Pneumonia Current Visit: Yes Status: Acute Code(s): J18.9 - PNEUMONIA, UNSPECIFIED ORGANISM SNOMED Code(s): 966176191 (3) MRSA (methicillin resistant staph aureus) culture positive Current Visit: Yes Status: Acute Code(s): Z22.322 - CARRIER OR SUSPECTED CARRIER OF METHICILLIN RESIS STAPH SNOMED Code(s): 907518433 Plan: 1patient with sepsis in this patient who did have fever tachycardia elevated white count in this patient admitted to hospital with alcohol withdrawal symptoms and concern for possible component of aspiration pneumonitis with a sp utum now growing MRSA 2-blood cultures so far negative 3-patient did have improvement in his fever pattern and the patient has been extubated however to be due to worsening of the white count with slight worsening of the pneumonia seen on the x-ray we will add cefepime for gram- negative coverage repeat a sputum and monitor clinical course closely Dictation was produced using [employer] software. please excuse any grammatical, word or spelling errors. Time with Patient: Less than 30
[2023-08-14] MEDS: CEFEPIME 2 GM in SODIUM CHLORIDE 0.9% 100 ML IVPB SCH (16:22)
[2023-08-15 04:59] LABS: Basophils # (A) 0.1 k/uL (0-0.2); Basophils % (A) 1 %; Eosinophils # (A) 0.4 k/uL (0-0.7); Eosinophils % (A) 2 %; HCT 36.7 % (39.0-53.0); HGB 12.7 gm/dL (13.0-17.5); Lymphocytes # (A) 1.3 k/uL (1.0-4.8); Lymphocytes % (A) 6 %; MCH 34.6 pg (25.0-35.0); MCHC 34.6 g/dL (31.0-37.0); MCV 99.9 fL (80.0-100.0); Mean Platelet Volume 9.3; Monocytes # (A) 1.2 k/uL (0-1.0); Monocytes % (A) 5 %; Neutrophils # (A) 19.3 k/uL (1.3-7.7); Neutrophils % (A) 85 %; Platelet Count 351 k/uL (150-450); RBC 3.68 m/uL (4.30-5.90); RDW 13.7 % (11.5-15.5); WBC 22.8 k/uL (3.8-10.6)
[2023-08-15 05:14] LABS: ALT 37 U/L (4-49); AST 49 U/L (17-59); African American GFR (CKD) >90 (>60 ml/min/1.73 sqM); Albumin 2.6 g/dL (3.5-5.0); Alkaline Phosphatase 72 U/L (38-126); Anion Gap 10 mmol/L; Blood Urea Nitrogen 11 mg/dL (9-20); Calcium 8.9 mg/dL (8.4-10.2); Carbon Dioxide 20 mmol/L (22-30); Chloride 109 mmol/L (98-107); Glucose 95 mg/dL (74-99); Non-African American GFR(CKD) >90 (>60 ml/min/1.73 sqM); Potassium 3.3 mmol/L (3.5-5.1); Sodium 139 mmol/L (137-145); Total Bilirubin 0.5 mg/dL (0.2-1.3); Total Protein 5.2 g/dL (6.3-8.2)
[2023-08-15] MEDS: POTASSIUM BICARBONATE/CIT AC 20 MEQ TABLET.EFF NG-TUBE SCH (06:17)
[2023-08-15 06:32] LABS: C Reactive Protein 25.4 mg/dL (<1.0)
--- NOTE | 2023-08-15 08:33 | XR ---
EXAMINATION TYPE: XR chest 1V portable DATE OF EXAM: 08/15/2023 Comparison: 08/14/2023 Clinical History: 43-year-old male pulmonary congestion Findings: Heart normal size. Some asymmetric elevation left hemidiaphragm with some patchy left basilar opacity . Remainder of the lungs appear clear. No sizable pleural effusion. Impression: Patchy density at the left base. Given some volume loss here, probably atelectasis. Correlate with sy mptoms to exclude some underlying infiltrate.
--- NOTE | 2023-08-15 09:34 | P.PN ---
Subjective Progress Note Date: 08/14/23 patient is of 43-year-old gentleman with past medical significant for alcohol abuse who presented to the ER for alcohol detox. Patient was sent to the ER from [place] where he was admitted on Friday for alcohol detox. Patient admits to drinking 1 L of alcohol daily. Denies any use of recreational drugs. Patient stated that he wanted to quit drinking as it was causing problems for his family. Denies any auditory or visualizations. There is no complaint of suicidal thoughts. Patient was being treated with oral Ativan at [place] but patient was getting restless and tachycardic. Patient was also complaining of increased shakiness. There was complaint of nausea and vomiting. Denies abdominal pain. Denies any chest pain or shortness of breath. Initial lab work done in the ER showed WBC 8.3, hemoglobin 13.3, platelet count 70, sodium 130 potassium 4.2, BUN 22, creatinine 1.12, magnesium 1.4 AST 164, ALT 140 Influenza A not detected Influenza B not detected RSV not detected COVID-19 not detected UA negative for infection EKG done in the ER showed heart rate of 120 , no ST segment elevation or depression seen, no T-wave inversions seen. Chest x-ray done in the ER no acute cardiopulmonary process Patient admitted to internal medicine service 08/07. Patient seen examined. Patient's CIWA scores were high, was started on Precedex drip yesterday afternoon and was transferred to ICU. Patient continued to be agitated, was intubated and placed on propofol and Versed. Currently on vent. 08/08. Patient seen and examined. Continues to be sedated on propofol and Versed. Patient having low-grade fevers, started on IV Zosyn. 08/09. Patient seen and examined. Blood work done this morning showed WBC 12.8, hemoglobin 15.3, platelet count 82 sodium 136, potassium 3.3, BUN 12, creatinine 0.64. Patient afebrile overnight. Still tachycardic 08/10. Patient seen and examined. Lab work done this morning showed WBC 12.3, hemoglobin 14.6, platelet count 99, sodium 110, potassium 3.8, BUN 13, creatinine 0.59,. Continues to be intubated and sedated 08/11. Patient seen examined. Labs done showed WBC 9.4, hemoglobin 13.5, platelet count 152, sodium 138, potassium 3.9, BUN 12, creatinine 0.57. Patient underwent bronchoscopy yesterday. Critical care added Haldol and Seroquel, want to wean down on sedation. 08/12/2023 Patient is in the MICU. Currently intubated and on mechanical ventilator. Sedation was off briefly. BAL culture is growing MRSA status post bronchoscopy on 08/10/2023. Currently on vancomycin. Patient is on IV hydration with normal saline at 50 mL's per hour. On alcohol withdrawal protocol. Chest x-ray showed ongoing small bilateral pleural effusions with adjacent atelectasis and consolidation. 08/13/2023 Patient is extubated today. Currently in the MICU. Drowsy and lethargic. Requiring 2 L oxygen by nasal cannula. Afebrile. Patient is being continued on antibiotics vancomycin due to BAL cultures showing MRSA. Laboratory data showed worsening WBC 16.9 today. Hemoglobin 13.3 and platelets 270, sodium 1:30 potassium 3.6 chloride 110 bicarb is 22 BUN 40 and creatinine 0.520 blood sugar 113. 08/14/2023 Patient is drowsy and lethargic. Patient was transferred to bedside recliner. Still confused and getting out of bed. Otherwise patient is on room air. No complaints of chest pain or shortness of breath. Patient does have difficulty swallowing and having very minimal oral input. Patient getting IV hydration with normal saline at 50 mL's per hour. Patient has been afebrile. Cough but unable to bring out sputum.. Otherwise WBC went up to 21.4. Patient is on vancomycin. Bronchial cultures positive for MRSA. Other laboratory data reviewed. PHYSICAL EXAMINATION: GENERAL: The patient is intubated HEENT: Pupils are round and equally reacting to light. EOMI. No scleral icterus. No conjunctival pallor. Normocephalic, atraumatic. No pharyngeal erythema. No thyromegaly. CARDIOVASCULAR: S1 and S2 present. No murmurs, rubs, or gallops. Tachycardic PULMONARY: Chest is clear to auscultation, no wheezing or crackles. ABDOMEN: Soft, nontender, nondistended, normoactive bowel sounds. No palpable organomegaly. MUSCULOSKELETAL: No joint swelling or deformity. EXTREMITIES: No cyanosis, clubbing, or pedal edema. NEUROLOGICAL: Intubated and sedated. SKIN: No rashes. Assessment and plan Acute alcohol withdrawal with DTs. Requiring intubation and mechanical ventilator. Extubated on 08/13/2023. Improving slowly. Possible MRSA pneumonia with BAL cultures positive for MRSA. Lethargic and weak Severe alcohol abuse Hypomagnesemia Thrombocytopenia Acute Alcoholic hepatitis Marijuana use admitting to smoking 1 joint daily Chronic and ongoing tobacco dependence of up to 2 packs/day Monitor vital signs Monitor CBC Monitor CMP Continue telemetry monitoring Continue vent management per ICU Continue propofol and Versed Continue CIWA protocol Antibiotics changed to vancomycin. Continue Lopressor 25 mg twice a day Continue thiamine and folic acid Monitor LFTs Continue tube feeding Critical care team and ID is on board. Labs and medication were reviewed.. Continue with symptomatic treatment. Resume home medication. Monitor labs and vitals. DVT and GI prophylaxis. Dictation was produced using [employer] dictation software. please excuse any grammatical, word or spelling errors. Objective - Vital Signs Vital signs: Vital Signs Temp 98.9 F 08/14/23 14:00 Pulse 98 08/14/23 14:00 Resp 18 08/14/23 14:00 BP 150/82 08/14/23 14:00 Pulse Ox 94 L 08/14/23 14:00 FiO2 50 08/13/23 10:38 Intake & Output 08/14/23 08/14/23 08/15/23 06:59 18:59 06:59 Intake Total 1615 600 Output Total 1665 485 Balance -50 115 Weight 76.6 kg 76.6 kg Intake: IV 1615 600 Pressure Bag 15 Sodium Chloride 0.9% 1, 600 600 000 ml @ 50 mls/hr IV . Q20H [facility] Rx#:[id number] Vancomycin 1,500 mg In 1000 Sodium Chloride 0.9% 500 ml 500 ml @ 167 mls/hr IVPB Q8H [facility] Rx#: [id number] Output: Urine 1665 485 Other: Voiding Method Indwelling Catheter Indwelling Catheter # Voids 4 ABP, PAP, CO, CI - Last Documented Arterial Blood Pressure 209/100 - Labs CBC & Chem 7: 08/15/23 04:44 08/15/23 04:44 Labs: Abnormal Lab Results - Last 24 Hours (Table) 08/14/23 08/14/23 Range/Units 11:33 11:33 WBC 21.4 H (3.8-10.6) k/uL RBC 3.90 L (4.30-5.90) m/uL MCV 102.6 H (80.0-100.0) fL Neutrophils # 17.7 H (1.3-7.7) k/uL Monocytes # 1.7 H (0-1.0) k/uL Creatinine 0.55 L (0.66-1.25) mg/dL Microbiology - Last 24 Hours (Table) 08/11/23 12:52 Blood Culture - Preliminary Blood Assessment and Plan Time with Patient: Greater than 30
--- NOTE | 2023-08-15 10:55 | P.PN ---
Subjective Progress Note Date: 08/15/23 Principal diagnosis: Respiratory failure. Acute alcohol withdrawal This is a 43-year-old male patient who resides in the [place] area who had recently been admitted to [facility] for alcohol withdrawal. He was admitting to drinking 1 L of tequila per day. He smokes 2 packs of cigarettes per day and 1 marijuana joint per day. States his last dri nk was at noon on the 12th prior to his admission to [facility]. He was sent here today by EMS for acute withdrawal syndromedelirium. Chest x-ray revealed no acute pulmonary process. EKG revealed sinus tachycardia. White count 8.3. Hemoglobin 16.3. Platelets 70,000. Sodium 137. Potassium 4.2. Bicarb 29. BUN 22. Creatinine 1.12. AST 164. ALT 140. Lipase 146. Viral screen negative. Since his arrival he has required 10 mg of Ativan. He is still quite restless. Precedex drip was ordered and he will be admitted to the intensive care unit. He is seen today in consultation in the emergency department. He has restless. Walking around in his room. Security is at the bedside. Precedex had not been started yet. He is maintaining O2 saturations in the 90s on room air. He is tachycardic in the 110s, 120s. Blood pressure stable. Afebrile. Patient was reevaluated today on 08/07/2023, patient developed worsening picture of alcohol withdrawal and acute delirium tremens, requiring intubation and mechanical ventilation. He is now on assist-control 18 tidal volume 450 FiO2 35% and PEEP of 5, ABG showed a pO2 of 148 pCO2 34 pH of 7.44 hence his rate was cut down to 16 and his tidal volume kept the same FiO2 down to 35% patient is still requiring significant amount of sedation including propofol at 60 mcg/kg/min, Versed was added this morning mostly because of persistent agitation in spite of propofol on board. CBC is relatively normal basic metabolic profile is normal except for low potassium of 3.3 chest x-ray is showing mostly left basilar atelectasis. Doubt pneumonia. Screening for influenza A B, RSV and COVID-19 all negative patient remains on the CIWA protocol, and spite of being on Precedex yesterday, patient continued to develop alcohol withdrawal requiring intubation mechanical ventilation. Patient was reevaluated today on 08/08/2023, patient remains in the ICU, intubated and mechanically ventilated. Patient is on assist-control rate of 16 tidal volume 450 FiO2 35% PEEP of 5. Patient is still requiring significant amount of sedation to keep him calm, otherwise he gets agitated, restless, and becomes asynchronous with mechanical ventilation. He is now on propofol at 50 mcg/kg/min and Versed at 15 mg/h. IV fluid is running at 2.9 normal saline 75 cc/h. Chest x-ray is showing more atelectasis, and more pleural effusions, hence I am cutting down his IV fluid to KVO and I am giving him Lasix 40 mg IV push x 1. In addition considering the patient is showing a low-grade temp with a temp of 99 today, I am recommending Zosyn to be started empirically. Patient is a good set up for aspiration pneumonia. And the findings of atelectasi s/infiltrates are noted in both lungs today. Left more so than right. Patient is receiving enteral feeding. He is also on GI DVT prophylaxis. His WBC count is 9.9 hemoglobin is 15 electrolytes are normal BUN is normal creatinine is normal, liver enzymes are improving steadily Patient was reevaluated today on 08/09/2023, patient remains in the ICU intubated and mechanically ventilated on assist-control rate of 16 tidal volume 450 FiO2 35% PEEP of 5 ABG showed a pO2 of 82 pCO2 36 pH of 7.43. Patient continues to require significant amount of sedation including propofol at 50 mcg/kg/min Vers ed at 15 mg/h. Patient is also 1.9 normal saline at 75 cc/h and receiving vital HP. Empirically the patient is on Zosyn, endotracheal tube seems to be high, and this will be advanced down 3 cm today. Chest x-ray continues to show some atelectasis and opacities at the bases especially at the left base, patient is empirically on Zosyn. WBC count is 12.8 hemoglobin 15.3. Basic metabolic profile is normal bicarb is 21 renal profile is normal Progress note dated August 11, 2023. The patient was seen today in room 266. The patient continues on mechanical ventilation. He is on volume assist-control, rate 16, tidal volume 500, FiO2 50%, PEEP of 5. Blood gases show pO2 79, pCO2 37, pH is 7.45. The patient continues on propofol at 50 mcg/kg/min, Versed at 50 mg an hour, and saline at 50 cc an hour. The patient is receiving vital high-protein at 53 cc an hour. The patient was admitted to the hospital on August 06, and was intubated the following day on the . Today, we will attempt a daily interruption of sedation. In addition, the patient will have some Haldol, and Seroquel, added to his regimen, for additional sedation. White count 11.4, hemoglobin 13.5, hematocrit 41, with a normal platelet count. Sodium 138, potassium 3.9, chlorides 111, CO2 23, BUN 12, creatinine 0.57. Glucose is 114. Magnesium 1.9. Progress note dated August 12, 2023. 43-year-old male seen today in room 266. The patient remains on the mechanical ventilator. He is on volume assist-control, rate 16, tidal volume 500, FiO2 50%, PEEP of 5. Blood gases show pO2 of 76, pCO2 34, pH is 7.47. This blood gas is consistent with a mild respiratory alkalosis. The patient is getting propofol at 10 mcg/kg/min, saline at 50 cc an hour, and vital high-protein at 59 cc an hour. That is goal. The patient continues on Zosyn, and vancomycin. The BAL sampling, did reveal evidence of methicillin-resistant Staph aureus, hence the vancomycin. White count 13.6, hemoglobin 13.4, hematocrit 40.1, platelet count 250,000. Sodium 139, potassium 4, chlorides 114, CO2 24, BUN 14, creatinine 0.61. Calcium 8.6. Magnesium 2.1. BAL sampling from August 10, was positive for methicillin-resistant Staph aureus. This x-ray shows bilateral effusions, which are relatively small, and bibasilar atelectasis. Progress note dated August 13, 2023. 43-year-old male seen today in room 266. Patient remains on mechanical ventilator. Ventilator settings include volume assist-control, rate 16, tidal volume 500, FiO2 50%, PEEP of 5. Blood gases show pO2 of 83, pCO2 33, and a pH of 7.48. The patient is getting propofol at 20 mcg/kg/min, saline at 50 cc an hour, and tube feedings with vital HP at goal, which is 59 cc an hour. Today, we will attempt another daily interruption of sedation, and potentially a spontaneous breathing trial. I did alert the nurse to the effect, that should he not progress, he may require tracheostomy and PEG tube placement by the end of the week. Current labs include a white count 16.9, hemoglobin 13.3, hematocrit 39.7, platelet count 270,000. Sodium 139, potassium 3.6, chlorides 110, CO2 22, BUN 14, creatinine 0.52. Glucose is 124. Calcium 8.7. Bronchial washings show evidence of methicillin-resistant Staph aureus. This was done on August 10. Chest x-ray revealed some mild interstitial edema, and small effusions or basilar atelectasis. Progress note dated August 14, 2023. 43-year-old male seen today in room 266. Yesterday, because of good weaning parameters, blood gas, and comfortably, the patient was successfully extubated. This occurred on August 13. The patient is currently in the ICU, room 266. The patient is on room air. The patient is getting saline at 50 cc an hour. The patient has had an uneventful period of time, postextubation. No new labs today. The nurses are looking into possible transfer, the [facility]. Progress note dated August 15, 2023. 43-year-old male seen in room 266. Currently, the patient is doing relatively well. The patient is on room air. He is receiving saline at 50 cc an hour. The patient is stable for transfer, out of the intensive care unit, in my opinion. White count 22.8, hemoglobin 12.7, hematocrit 36.7, with a normal platelet count. Sodium 139, potassium 3.3, chlorides 109, CO2 20, BUN 11, creatinine 0.52. Procalcitonin level was 0.22. Bronchoscopy, from August 10, was positive for methicillin-resistant Staph aureus. Patient continues on cefepime and vancomycin. Chest x-ray shows patchy density at the left lung base. There is also some bibasilar atelectasis. Objective - Vital Signs Vital signs: Vital Signs Temp 98.4 F 08/15/23 09:00 Pulse 144 H 08/15/23 09:00 Resp 14 08/15/23 09:00 BP 129/82 08/15/23 09:00 Pulse Ox 94 L 08/15/23 09:00 FiO2 50 08/13/23 10:38 Intake & Output 08/14/23 08/15/23 08/15/23 18:59 06:59 18:59 Intake Total 600 550 Output Total 485 560 Balance 115 -10 Weight 76.6 kg 75.4 kg Intake: IV 600 550 Sodium Chloride 0.9% 1, 600 550 000 ml @ 50 mls/hr IV . Q20H [facility] Rx#:[id number] Output: Urine 485 560 Other: Voiding Method Indwelling Catheter Toilet Toilet Urinal Urinal # Voids 4 4 # Bowel Movements 1 ABP, PAP, CO, CI - Last Documented Arterial Blood Pressure 209/100 - Exam No acute distress, currently on room air. No respiratory distress or difficulty. HEENT examination is grossly unremarkable. Neck supple. Full range of motion. No adenopathy thyromegaly or neck vein distention. Cardiovascular examination reveals regular rhythm rate. S1-S2 normal. No S3 or S4. No discernible murmur noted. Heart sounds are distant. Heart rate of 100 bpm. Lungs reveal mostly clear breath sounds. Minimal rhonchi. No wheezes or crackles. Saturation of 94 % on room air. Abdomen soft, with bowel sounds. No masses or tenderness. Extremities are intact. No cyanosis clubbing or edema. Skin is without rash or lesion. Neurologic examination is normal at this time. - Labs CBC & Chem 7: 08/15/23 04:44 08/15/23 04:44 Labs: Abnormal Lab Results - Last 24 Hours (Table) 08/14/23 08/14/23 08/15/23 Range/Units 11:33 11:33 04:39 WBC 21.4 H (3.8-10.6) k/uL RBC 3.90 L (4.30-5.90) m/uL Hgb (13.0-17.5) gm/dL Hct (39.0-53.0) % MCV 102.6 H (80.0-100.0) fL Neutrophils # 17.7 H (1.3-7.7) k/uL Monocytes # 1.7 H (0-1.0) k/uL Potassium (3.5-5.1) mmol/L Chloride (98-107) mmol/L Carbon Dioxide (22-30) mmol/L Creatinine 0.55 L (0.66-1.25) mg/dL C-Reactive Protein (<1.0) mg/dL Total Protein (6.3-8.2) g/dL Albumin (3.5-5.0) g/dL Procalcitonin 0.22 H (0.02-0.09) ng/mL 08/15/23 08/15/23 Range/Units 04:44 04:44 WBC 22.8 H (3.8-10.6) k/uL RBC 3.68 L (4.30-5.90) m/uL Hgb 12.7 L (13.0-17.5) gm/dL Hct 36.7 L (39.0-53.0) % MCV (80.0-100.0) fL Neutrophils # 19.3 H (1.3-7.7) k/uL Monocytes # 1.2 H (0-1.0) k/uL Potassium 3.3 L (3.5-5.1) mmol/L Chloride 109 H (98-107) mmol/L Carbon Dioxide 20 L (22-30) mmol/L Creatinine 0.52 L (0.66-1.25) mg/dL C-Reactive Protein 25.4 H (<1.0) mg/dL Total Protein 5.2 L (6.3-8.2) g/dL Albumin 2.6 L (3.5-5.0) g/dL Procalcitonin (0.02-0.09) ng/mL Microbiology - Last 24 Hours (Table) 08/11/23 12:52 Blood Culture - Preliminary Blood Assessment and Plan Assessment: Acute alcohol withdrawal, with respiratory failure, requiring intubation and mechanical ventilation, on August 07, 2023. S/P successful extubation, on August 13, 2023. Acute delirium tremens. Alcoholic liver disease. Methicillin-resistant Staph aureus tracheobronchitis/bronchopneumonia. Thrombocytopenia, secondary to alcoholic liver disease. Alcoholic hepatopathy. History of marijuana use. Tobacco dependence syndrome. Plan: Plan dated August 11, 2023. The patient continues on Versed at 50 mg an hour, propofol at 50 mcg/kg/min. In an attempt, to wean these medications down, for eventual extubation, we had some Haldol, and Seroquel. Blood gases show pO2 of 79, pCO2 of 37, pH is 7.45. The patient continues on tube feedings with vital HP at 53 cc an hour. The patient will have a daily interruption of sedation today. The patient's been intubated since August 07. No additional recommendations are made. Labs, x-rays, and medications are all reviewed. Prognosis is guarded. We will continue to follow the patient, make recommendations along the way. Plan dated August 20, 2023. The patient is currently on a small dose of propofol, i.e., 10 mcg/kg/min. He was weaned off the Versed. Yesterday, despite being off of all sedation, the patient was poorly responsive. We did not attempt a spontaneous breathing trial. We will do a DIS/SBT today. The patient currently remains on Zosyn and vancomycin. The BAL sampling showed evidence of MRSA. Labs, x-rays, medications are reviewed. We will continue to follow make recommendations along the way. Were hoping that his neurologic status improves, so that we can move towards weaning and extubation. Will continue to follow and make recommendations. Prognosis is guarded. Plan dated August 13, 2023. The patient remains on the mechanical ventilator. He remains on propofol for sedation, 20 mcg/kg/min. The patient did poorly with his daily interruption of sedation yesterday. He apparently started to have nausea with vomiting, and his vital signs became unstable. The patient never had a spontaneous breathing trial. Currently, we will attempt another daily interruption of sedation today. If he is not progressing, he may require tracheostomy and PEG tube by the end of the week. Labs, x-rays, medications are reviewed. The patient's overall prognosis remains guarded. He continues on vancomycin for methicillin-resistant Staph aureus tracheobronchitis/bronchopneumonia. We will continue to follow make recommendations along the way. Plan dated August 14, 2023. The patient had excellent blood gases, weaning parameters, and cuff leak yesterday, and was successfully extubated. Currently, he is on room air. The patient is on saline at 50 cc an hour. According to the nurse, the patient will need to be transferred to an outside hospital, either [facility], or [facility]. Labs, x-rays, and medications are reviewed. The patient's overall prognosis remains guarded. We will continue to follow make recommendations along the way. The patient continues on vancomycin, for Staph ylococcus aureus, tracheobronchitis/bronchopneumonia. Plan dated August 15, 2023. The patient appears to be doing relatively well. The patient is currently on room air. The patient continues on cefepime and vancomycin. Probably, the cefepime can be discontinued. The patient is being followed by infectious diseases. Labs, x-rays, and medications are reviewed. The patient's overall prognosis remains guarded. Will continue to follow the patient, make recommendations along the way. Prognosis is guarded. Time with Patient: Less than 30
[2023-08-15 12:07] LABS: African American GFR (CKD) >90 (>60 ml/min/1.73 sqM); Non-African American GFR(CKD) >90 (>60 ml/min/1.73 sqM)
--- NOTE | 2023-08-15 12:26 | P.PN ---
Subjective Progress Note Date: 08/15/23 Principal diagnosis: Reason for follow-up is fever pneumonia Patient is a 43-year-old male with a past medical history significant for alcohol and drug abuse patient was at [place] undergoing rehabilitation for alcohol abuse the patient was noticed to be undergoing alcohol withdrawal for the patient was brought to the hospital did require intubation because of h is respiratory status patient did have a fever, patient did have a BAL on 08/10/2023 growing MRSA. On today's evaluation that is 08/15/2023,the patient remains to be afebrile, patient is on room air not requiring supplemental oxygen and denies any shortness of breath no chest pain did have occasional cough.Patient denies having any nausea or vomiting, no abdominal pain and no diarrhea has been repo rted by the nursing staff Patient did have further worsening of his white count which is up to 22.8, creatinine 0.52 progressive 0.22 slightly higher than previous reading of 0.17 Objective - Vital Signs Vital signs: Vital Signs Temp 98.4 F 08/15/23 09:00 Pulse 144 H 08/15/23 09:00 Resp 14 08/15/23 09:00 BP 129/82 08/15/23 09:00 Pulse Ox 94 L 08/15/23 09:00 FiO2 50 08/13/23 10:38 Intake & Output 08/14/23 08/15/23 08/15/23 18:59 06:59 18:59 Intake Total 600 550 Output Total 485 560 Balance 115 -10 Weight 76.6 kg 75.4 kg Intake: IV 600 550 Sodium Chloride 0.9% 1, 600 550 000 ml @ 50 mls/hr IV . Q20H [facility] Rx#:[id number] Output: Urine 485 560 Other: Voiding Method Indwelling Catheter Toilet Toilet Urinal Urinal # Voids 4 4 # Bowel Movements 1 ABP, PAP, CO, CI - Last Documented Arterial Blood Pressure 209/100 - Exam GENERAL DESCRIPTION: Middle-age male intubated on the vent RESPIRATORY SYSTEM: Unlabored breathing , decreased breath sounds at bases HEART: S1 S2 regular rate and rhythm , ABDOMEN: Soft , no tenderness EXTREMITIES: No edema feet - Labs CBC & Chem 7: 08/15/23 04:44 08/15/23 11:40 Labs: Abnormal Lab Results - Last 24 Hours (Table) 0208/14/23 08/15/23 Range/Units 11:33 11:33 04:39 WBC 21.4 H (3.8-10.6) k/uL RBC 3.90 L (4.30-5.90) m/uL Hgb (13.0-17.5) gm/dL Hct (39.0-53.0) % MCV 102.6 H (80.0-100.0) fL Neutrophils # 17.7 H (1.3-7.7) k/uL Monocytes # 1.7 H (0-1.0) k/uL Potassium (3.5-5.1) mmol/L Chloride (98-107) mmol/L Carbon Dioxide (22-30) mmol/L Creatinine 0.55 L (0.66-1.25) mg/dL C-Reactive Protein (<1.0) mg/dL Total Protein (6.3-8.2) g/dL Albumin (3.5-5.0) g/dL Procalcitonin 0.22 H (0.02-0.09) ng/mL 08/15/23 08/15/23 08/15/23 Range/Units 04:44 04:44 11:40 WBC 22.8 H (3.8-10.6) k/uL RBC 3.68 L (4.30-5.90) m/uL Hgb 12.7 L (13.0-17.5) gm/dL Hct 36.7 L (39.0-53.0) % MCV (80.0-100.0) fL Neutrophils # 19.3 H (1.3-7.7) k/uL Monocytes # 1.2 H (0-1.0) k/uL Potassium 3.3 L (3.5-5.1) mmol/L Chloride 109 H (98-107) mmol/L Carbon Dioxide 20 L (22-30) mmol/L Creatinine 0.52 L 0.58 L (0.66-1.25) mg/dL C-Reactive Protein 25.4 H (<1.0) mg/dL Total Protein 5.2 L (6.3-8.2) g/dL Albumin 2.6 L (3.5-5.0) g/dL Procalcitonin (0.02-0.09) ng/mL Microbiology - Last 24 Hours (Table) 08/11/23 12:52 Blood Culture - Preliminary Blood Assessment and Plan (1) Sepsis Current Visit: Yes Status: Acute Code(s): A41.9 - SEPSIS, UNSPECIFIED ORGANISM SNOMED Code(s): 50831513 (2) Pneumonia Current Visit: Yes Status: Acute Code(s): J18.9 - PNEUMONIA, UNSPECIFIED ORGANISM SNOMED Code(s): 669738324 (3) MRSA (methicillin resistant staph aureus) culture positive Current Visit: Yes Status: Acute Code(s): Z22.322 - CARRIER OR SUSPECTED CARRIER OF METHICILLIN RESIS STAPH SNOMED Code(s): 416507892 Plan: 1patient with sepsis in this patient who did have fever tachycardia elevated white count in this patient admitted to hospital with alcohol withdrawal symptoms and concern for possible component of aspiration pneumonitis with a sp utum now growing MRSA 2-blood cultures so far negative 3-patient did have resolution of his fever however worsening of his white count and slight worsening of his procalcitonin cefepime was added yesterday patient noted to be high risk for superadded fungal infection we we will give a dose of Diflucan and repeat a CBC tomorrow if any improvement will add Eraxis and get it of cefepime continue with vancomycin for now Dictation was produced using [employer] dictation software. please excuse any gramma tical, word or spelling errors. Time with Patient: Less than 30
[2023-08-15] MEDS: VANCOMYCIN TROUGH DUE 1 EACH MISC MISCELLANE ONE (12:38)
[2023-08-15] MEDS: FLUCONAZOLE 100 MG TAB PO ONE (13:11)
[2023-08-15] MEDS: NICOTINE 14MG/24HR PATCH TRANSDERM SCH (21:47)
--- NOTE | 2023-08-16 02:34 | P.PN ---
Subjective Progress Note Date: 08/15/23 patient is of 43-year-old gentleman with past medical significant for alcohol abuse who presented to the ER for alcohol detox. Patient was sent to the ER from [place] where he was admitted on Friday for alcohol detox. Patient admits to drinking 1 L of alcohol daily. Denies any use of recreational drugs. Patient stated that he wanted to quit drinking as it was causing problems for his family. Denies any auditory or visualizations. There is no complaint of suicidal thoughts. Patient was being treated with oral Ativan at [place] but patient was getting restless and tachycardic. Patient was also complaining of increased shakiness. There was complaint of nausea and vomiting. Denies abdominal pain. Denies any chest pain or shortness of breath. Initial lab work done in the ER showed WBC 8.3, hemoglobin 13.3, platelet count 70, sodium 130 potassium 4.2, BUN 22, creatinine 1.12, magnesium 1.4 AST 164, ALT 140 Influenza A not detected Influenza B not detected RSV not detected COVID-19 not detected UA negative for infection EKG done in the ER showed heart rate of 120 , no ST segment elevation or depression seen, no T-wave inversions seen. Chest x-ray done in the ER no acute cardiopulmonary process Patient admitted to internal medicine service 08/07. Patient seen examined. Patient's CIWA scores were high, was started on Precedex drip yesterday afternoon and was transferred to ICU. Patient continued to be agitated, was intubated and placed on propofol and Versed. Currently on vent. 08/08. Patient seen and examined. Continues to be sedated on propofol and Versed. Patient having low-grade fevers, started on IV Zosyn. 08/09. Patient seen and examined. Blood work done this morning showed WBC 12.8, hemoglobin 15.3, platelet count 82 sodium 136, potassium 3.3, BUN 12, creatinine 0.64. Patient afebrile overnight. Still tachycardic 08/10. Patient seen and examined. Lab work done this morning showed WBC 12.3, hemoglobin 14.6, platelet count 99, sodium 110, potassium 3.8, BUN 13, creatinine 0.59,. Continues to be intubated and sedated 08/11. Patient seen examined. Labs done showed WBC 9.4, hemoglobin 13.5, platelet count 152, sodium 138, potassium 3.9, BUN 12, creatinine 0.57. Patient underwent bronchoscopy yesterday. Critical care added Haldol and Seroquel, want to wean down on sedation. 08/12/2023 Patient is in the MICU. Currently intubated and on mechanical ventilator. Sedation was off briefly. BAL culture is growing MRSA status post bronchoscopy on 08/10/2023. Currently on vancomycin. Patient is on IV hydration with normal saline at 50 mL's per hour. On alcohol withdrawal protocol. Chest x-ray showed ongoing small bilateral pleural effusions with adjacent atelectasis and consolidation. 08/13/2023 Patient is extubated today. Currently in the MICU. Drowsy and lethargic. Requiring 2 L oxygen by nasal cannula. Afebrile. Patient is being continued on antibiotics vancomycin due to BAL cultures showing MRSA. Laboratory data showed worsening WBC 16.9 today. Hemoglobin 13.3 and platelets 270, sodium 1:30 potassium 3.6 chloride 110 bicarb is 22 BUN 40 and creatinine 0.520 blood sugar 113. 08/14/2023 Patient is drowsy and lethargic. Patient was transferred to bedside recliner. Still confused and getting out of bed. Otherwise patient is on room air. No complaints of chest pain or shortness of breath. Patient does have difficulty swallowing and having very minimal oral input. Patient getting IV hydration with normal saline at 50 mL's per hour. Patient has been afebrile. Cough but unable to bring out sputum.. Otherwise WBC went up to 21.4. Patient is on vancomycin. Bronchial cultures positive for MRSA. Other laboratory data reviewed. 08/15/2023 Patient is in the MICU. Seems to be more awake and able to communicate slowly. Patient still very weak and slid to the floor on the side of the bathroom door this morning. No complaints of head injury. No complaints of back pain currently. Patient has been afebrile. No nausea or vomiting. No headache. No chest pain. No complaints of worsening shortness of breath. Patient is on room air. Patient was also started on oral diet. Otherwise leukocytosis trending up with WBC 22.8 today. Hemoglobin 12.7 and platelets 85 potassium 3.3 chloride 109 bicarb is 20 BUN 11 creatinine 0.52 and procalcitonin level 0.22 Patient is being continued on vancomycin and cefepime and Diflucan is being added by ID. PHYSICAL EXAMINATION: GENERAL: The patient is intubated HEENT: Pupils are round and equally reacting to light. EOMI. No scleral icterus. No conjunctival pallor. Normocephalic, atraumatic. No pharyngeal erythema. No thyromegaly. CARDIOVASCULAR: S1 and S2 present. No murmurs, rubs, or gallops. Tachycardic PULMONARY: Chest is clear to auscultation, no wheezing or crackles. ABDOMEN: Soft, nontender, nondistended, normoactive bowel sounds. No palpable organomegaly. MUSCULOSKELETAL: No joint swelling or deformity. EXTREMITIES: No cyanosis, clubbing, or pedal edema. NEUROLOGICAL: Intubated and sedated. SKIN: No rashes. Assessment and plan Acute alcohol withdrawal with DTs. Requiring intubation and mechanical ventilator. Extubated on 08/13/2023. Improving slowly. Possible MRSA pneumonia with BAL cultures positive for MRSA. Worsening leukocytosis Lethargic and weak. Improving Severe alcohol abuse Hypomagnesemia Thrombocytopenia Acute Alcoholic hepatitis Marijuana use admitting to smoking 1 joint daily Chronic and ongoing tobacco dependence of up to 2 packs/day Monitor vital signs Monitor CBC Monitor CMP Continue telemetry monitoring Continue vent management per ICU Continue propofol and Versed Continue CIWA protocol currently on antibiotics vancomycin and cefepime. Continue Lopressor 25 mg twice a day Continue thiamine and folic acid Monitor LFTs Patient was started on oral diet today. Critical care team and ID is on board. Labs and medication were reviewed.. Continue with symptomatic treatment. Resume home medication. Monitor labs and vitals. DVT and GI prophylaxis. Patient is clinically improving slowly. Patient may be transferred to another hospital facility in the next 24 hours due to incidence issues. Dictation was produced using [employer] software. please excuse any grammatical, word or spelling errors. Objective - Vital Signs Vital signs: Vital Signs Temp 98.8 F 08/15/23 02:00 Pulse 133 H 08/15/23 02:00 Resp 26 H 08/15/23 02:00 BP 131/78 08/15/23 02:00 Pulse Ox 92 L 08/15/23 02:00 FiO2 50 08/13/23 10:38 Intake & Output 08/14/23 08/15/23 08/15/23 18:59 06:59 18:59 Intake Total 600 550 Output Total 485 560 Balance 115 -10 Weight 76.6 kg 75.4 kg Intake: IV 600 550 Sodium Chloride 0.9% 1, 600 550 000 ml @ 50 mls/hr IV . Q20H [facility] Rx#:[id number] Output: Urine 485 560 Other: Voiding Method Indwelling Catheter Toilet Urinal # Voids 4 4 # Bowel Movements 1 ABP, PAP, CO, CI - Last Documented Arterial Blood Pressure 209/100 - Labs CBC & Chem 7: 08/15/23 04:44 08/15/23 11:40 Labs: Abnormal Lab Results - Last 24 Hours (Table) 08/14/23 08/14/23 08/15/23 Range/Units 11:33 11:33 04:39 WBC 21.4 H (3.8-10.6) k/uL RBC 3.90 L (4.30-5.90) m/uL Hgb (13.0-17.5) gm/dL Hct (39.0-53.0) % MCV 102.6 H (80.0-100.0) fL Neutrophils # 17.7 H (1.3-7.7) k/uL Monocytes # 1.7 H (0-1.0) k/uL Potassium (3.5-5.1) mmol/L Chloride (98-107) mmol/L Carbon Dioxide (22-30) mmol/L Creatinine 0.55 L (0.66-1.25) mg/dL C-Reactive Protein (<1.0) mg/dL Total Protein (6.3-8.2) g/dL Albumin (3.5-5.0) g/dL Procalcitonin 0.22 H (0.02-0.09) ng/mL 08/15/23 08/15/23 Range/Units 04:44 04:44 WBC 22.8 H (3.8-10.6) k/uL RBC 3.68 L (4.30-5.90) m/uL Hgb 12.7 L (13.0-17.5) gm/dL Hct 36.7 L (39.0-53.0) % MCV (80.0-100.0) fL Neutrophils # 19.3 H (1.3-7.7) k/uL Monocytes # 1.2 H (0-1.0) k/uL Potassium 3.3 L (3.5-5.1) mmol/L Chloride 109 H (98-107) mmol/L Carbon Dioxide 20 L (22-30) mmol/L Creatinine 0.52 L (0.66-1.25) mg/dL C-Reactive Protein 25.4 H (<1.0) mg/dL Total Protein 5.2 L (6.3-8.2) g/dL Albumin 2.6 L (3.5-5.0) g/dL Procalcitonin (0.02-0.09) ng/mL Microbiology - Last 24 Hours (Table) 08/11/23 12:52 Blood Culture - Preliminary Blood
[2023-08-16 04:33] LABS: Basophils # (A) 0.1 k/uL (0-0.2); Basophils % (A) 1 %; Eosinophils # (A) 0.3 k/uL (0-0.7); Eosinophils % (A) 1 %; HCT 37.4 % (39.0-53.0); HGB 12.8 gm/dL (13.0-17.5); Lymphocytes # (A) 1.7 k/uL (1.0-4.8); Lymphocytes % (A) 8 %; MCH 34.3 pg (25.0-35.0); MCHC 34.2 g/dL (31.0-37.0); MCV 100.4 fL (80.0-100.0); Mean Platelet Volume 9.1; Monocytes % (A) 5 %; Neutrophils # (A) 17.1 k/uL (1.3-7.7); Neutrophils % (A) 82 %; Platelet Count 375 k/uL (150-450); RBC 3.73 m/uL (4.30-5.90); RDW 13.7 % (11.5-15.5); WBC 20.7 k/uL (3.8-10.6)
[2023-08-16 04:49] LABS: African American GFR (CKD) >90 (>60 ml/min/1.73 sqM); Blood Urea Nitrogen 8 mg/dL (9-20); Calcium 8.7 mg/dL (8.4-10.2); Carbon Dioxide 20 mmol/L (22-30); Glucose 88 mg/dL (74-99); Non-African American GFR(CKD) >90 (>60 ml/min/1.73 sqM)
[2023-08-16 05:05] LABS: Anion Gap 11 mmol/L; Chloride 110 mmol/L (98-107); Potassium 3.3 mmol/L (3.5-5.1); Sodium 141 mmol/L (137-145)
[2023-08-16 05:17] LABS: C Reactive Protein 26.3 mg/dL (<1.0)
[2023-08-16] MEDS: POTASSIUM CHLORIDE ER 20 MEQ TAB.ER PO SCH (06:36)
--- NOTE | 2023-08-16 06:52 | XR ---
EXAM: XR chest 1V portable CLINICAL INDICATION:Male, 43 years old with history of infiltrates; [facility] COMPARISON: 08/15/2023 and before TECHNIQUE: Chest single view. FINDINGS: Lines/tubes/devices: No indwelling lines. Bilateral body jewelry redemonstrated. Cardiomediastinum: Cardiac silhouette appears normal in size. Unremarkable mediastinal silhouette. Vasculature: No increased pulmonary vasculature. Lungs/pleura: Right lung and pleural space remain clear. There is redemonstration of asymmetric elevation left rand diaphragm with left basilar pleural/parenchymal opacities which appear similar to slightly increased. No visualized pneumothorax. Bones/soft tissues: Bony thorax appears grossly unchanged as seen. Regional soft tissues appear unremarkable. IMPRESSION: Stable to slightly increased left basilar pleural/parenchymal opacities, may represent infiltrate or atelectasis with possible small pleural effusion.
--- NOTE | 2023-08-16 10:54 | P.PN ---
Subjective Progress Note Date: 08/16/23 Principal diagnosis: Respiratory failure. Acute alcohol withdrawal This is a 43-year-old male patient who resides in the [place] area who had recently been admitted to [facility] for alcohol withdrawal. He was admitting to drinking 1 L of tequila per day. He smokes 2 packs of cigarettes per day and 1 marijuana joint per day. States his last dri nk was at noon on the 12th prior to his admission to [facility]. He was sent here today by EMS for acute withdrawal syndromedelirium. Chest x-ray revealed no acute pulmonary process. EKG revealed sinus tachycardia. White count 8.3. Hemoglobin 16.3. Platelets 70,000. Sodium 137. Potassium 4.2. Bicarb 29. BUN 22. Creatinine 1.12. AST 164. ALT 140. Lipase 146. Viral screen negative. Since his arrival he has required 10 mg of Ativan. He is still quite restless. Precedex drip was ordered and he will be admitted to the intensive care unit. He is seen today in consultation in the emergency department. He has restless. Walking around in his room. Security is at the bedside. Precedex had not been started yet. He is maintaining O2 saturations in the 90s on room air. He is tachycardic in the 110s, 120s. Blood pressure stable. Afebrile. Patient was reevaluated today on 08/07/2023, patient developed worsening picture of alcohol withdrawal and acute delirium tremens, requiring intubation and mechanical ventilation. He is now on assist-control 18 tidal volume 450 FiO2 35% and PEEP of 5, ABG showed a pO2 of 148 pCO2 34 pH of 7.44 hence his rate was cut down to 16 and his tidal volume kept the same FiO2 down to 35% patient is still requiring significant amount of sedation including propofol at 60 mcg/kg/min, Versed was added this morning mostly because of persistent agitation in spite of propofol on board. CBC is relatively normal basic metabolic profile is normal except for low potassium of 3.3 chest x-ray is showing mostly left basilar atelectasis. Doubt pneumonia. Screening for influenza A B, RSV and COVID-19 all negative patient remains on the CIWA protocol, and spite of being on Precedex yesterday, patient continued to develop alcohol withdrawal requiring intubation mechanical ventilation. Patient was reevaluated today on 08/08/2023, patient remains in the ICU, intubated and mechanically ventilated. Patient is on assist-control rate of 16 tidal volume 450 FiO2 35% PEEP of 5. Patient is still requiring significant amount of sedation to keep him calm, otherwise he gets agitated, restless, and becomes asynchronous with mechanical ventilation. He is now on propofol at 50 mcg/kg/min and Versed at 15 mg/h. IV fluid is running at 2.9 normal saline 75 cc/h. Chest x-ray is showing more atelectasis, and more pleural effusions, hence I am cutting down his IV fluid to KVO and I am giving him Lasix 40 mg IV push x 1. In addition considering the patient is showing a low-grade temp with a temp of 99 today, I am recommending Zosyn to be started empirically. Patient is a good set up for aspiration pneumonia. And the findings of atelectasi s/infiltrates are noted in both lungs today. Left more so than right. Patient is receiving enteral feeding. He is also on GI DVT prophylaxis. His WBC count is 9.9 hemoglobin is 15 electrolytes are normal BUN is normal creatinine is normal, liver enzymes are improving steadily Patient was reevaluated today on 08/09/2023, patient remains in the ICU intubated and mechanically ventilated on assist-control rate of 16 tidal volume 450 FiO2 35% PEEP of 5 ABG showed a pO2 of 82 pCO2 36 pH of 7.43. Patient continues to require significant amount of sedation including propofol at 50 mcg/kg/min Vers ed at 15 mg/h. Patient is also 1.9 normal saline at 75 cc/h and receiving vital HP. Empirically the patient is on Zosyn, endotracheal tube seems to be high, and this will be advanced down 3 cm today. Chest x-ray continues to show some atelectasis and opacities at the bases especially at the left base, patient is empirically on Zosyn. WBC count is 12.8 hemoglobin 15.3. Basic metabolic profile is normal bicarb is 21 renal profile is normal Progress note dated August 11, 2023. The patient was seen today in room 266. The patient continues on mechanical ventilation. He is on volume assist-control, rate 16, tidal volume 500, FiO2 50%, PEEP of 5. Blood gases show pO2 79, pCO2 37, pH is 7.45. The patient continues on propofol at 50 mcg/kg/min, Versed at 50 mg an hour, and saline at 50 cc an hour. The patient is receiving vital high-protein at 53 cc an hour. The patient was admitted to the hospital on August 06, and was intubated the following day on the . Today, we will attempt a daily interruption of sedation. In addition, the patient will have some Haldol, and Seroquel, added to his regimen, for additional sedation. White count 11.4, hemoglobin 13.5, hematocrit 41, with a normal platelet count. Sodium 138, potassium 3.9, chlorides 111, CO2 23, BUN 12, creatinine 0.57. Glucose is 114. Magnesium 1.9. Progress note dated August 12, 2023. 43-year-old male seen today in room 266. The patient remains on the mechanical ventilator. He is on volume assist-control, rate 16, tidal volume 500, FiO2 50%, PEEP of 5. Blood gases show pO2 of 76, pCO2 34, pH is 7.47. This blood gas is consistent with a mild respiratory alkalosis. The patient is getting propofol at 10 mcg/kg/min, saline at 50 cc an hour, and vital high-protein at 59 cc an hour. That is goal. The patient continues on Zosyn, and vancomycin. The BAL sampling, did reveal evidence of methicillin-resistant Staph aureus, hence the vancomycin. White count 13.6, hemoglobin 13.4, hematocrit 40.1, platelet count 250,000. Sodium 139, potassium 4, chlorides 114, CO2 24, BUN 14, creatinine 0.61. Calcium 8.6. Magnesium 2.1. BAL sampling from August 10, was positive for methicillin-resistant Staph aureus. This x-ray shows bilateral effusions, which are relatively small, and bibasilar atelectasis. Progress note dated August 13, 2023. 43-year-old male seen today in room 266. Patient remains on mechanical ventilator. Ventilator settings include volume assist-control, rate 16, tidal volume 500, FiO2 50%, PEEP of 5. Blood gases show pO2 of 83, pCO2 33, and a pH of 7.48. The patient is getting propofol at 20 mcg/kg/min, saline at 50 cc an hour, and tube feedings with vital HP at goal, which is 59 cc an hour. Today, we will attempt another daily interruption of sedation, and potentially a spontaneous breathing trial. I did alert the nurse to the effect, that should he not progress, he may require tracheostomy and PEG tube placement by the end of the week. Current labs include a white count 16.9, hemoglobin 13.3, hematocrit 39.7, platelet count 270,000. Sodium 139, potassium 3.6, chlorides 110, CO2 22, BUN 14, creatinine 0.52. Glucose is 124. Calcium 8.7. Bronchial washings show evidence of methicillin-resistant Staph aureus. This was done on August 10. Chest x-ray revealed some mild interstitial edema, and small effusions or basilar atelectasis. Progress note dated August 14, 2023. 43-year-old male seen today in room 266. Yesterday, because of good weaning parameters, blood gas, and comfortably, the patient was successfully extubated. This occurred on August 13. The patient is currently in the ICU, room 266. The patient is on room air. The patient is getting saline at 50 cc an hour. The patient has had an uneventful period of time, postextubation. No new labs today. The nurses are looking into possible transfer, the [facility]. Progress note dated August 15, 2023. 43-year-old male seen in room 266. Currently, the patient is doing relatively well. The patient is on room air. He is receiving saline at 50 cc an hour. The patient is stable for transfer, out of the intensive care unit, in my opinion. White count 22.8, hemoglobin 12.7, hematocrit 36.7, with a normal platelet count. Sodium 139, potassium 3.3, chlorides 109, CO2 20, BUN 11, creatinine 0.52. Procalcitonin level was 0.22. Bronchoscopy, from August 10, was positive for methicillin-resistant Staph aureus. Patient continues on cefepime and vancomycin. Chest x-ray shows patchy density at the left lung base. There is also some bibasilar atelectasis. Progress note dated August 16, 2023. The patient is seen today in room 266. He is on room air. He is getting saline at 50 cc an hour. He has no new complaints today. According to the nurse, he had an uneventful night. His IV can be discontinued. He is eating and drinking appropriately. Labs today include a white count 20.7, hemoglobin 12.8, hematocrit 37.4, and platelet count which is normal. Sodium 141, potassium 3.3, chlorides 110, CO2 20, BUN 8, creatinine 0.51. BAL sampling from August 10, was positive for methicillin-resistant Staph aureus. Chest x-ray today shows some left basilar infiltrates or atelectasis. Objective - Vital Signs Vital signs: Vital Signs Temp 98.6 F 08/16/23 08:00 Pulse 111 H 08/16/23 08:00 Resp 20 08/16/23 08:00 BP 110/65 08/16/23 08:00 Pulse Ox 94 L 08/16/23 08:00 FiO2 50 08/13/23 10:38 Intake & Output 08/15/23 08/16/23 08/16/23 18:59 06:59 18:59 Intake Total 600 550 Balance 600 550 Weight 75.7 kg Intake: IV 550 Sodium Chloride 0.9% 1, 550 000 ml @ 50 mls/hr IV . Q20H [facility] Rx#:[id number] Oral 600 Other: Voiding Method Toilet Toilet Toilet Urinal Urinal Urinal # Voids 10 9 # Bowel Movements 1 1 ABP, PAP, CO, CI - Last Documented Arterial Blood Pressure 209/100 - Exam No acute distress, currently on room air. No respiratory distress or difficulty. HEENT examination is grossly unremarkable. Neck supple. Full range of motion. No adenopathy thyromegaly or neck vein distention. Cardiovascular examination reveals regular rhythm rate. S1-S2 normal. No S3 or S4. No discernible murmur noted. Heart sounds are distant. Heart rate of 95 bpm. Lungs reveal mostly clear breath sounds. Minimal rhonchi. No wheezes or crackles. Saturation of 94 % on room air. Abdomen soft, with bowel sounds. No masses or tenderness. Extremities are intact. No cyanosis clubbing or edema. Skin is without rash or lesion. Neurologic examination is normal at this time. - Labs CBC & Chem 7: 08/16/23 03:52 08/16/23 03:52 Labs: Abnormal Lab Results - Last 24 Hours (Table) 08/15/23 08/16/23 08/16/23 Range/Units 11:40 03:52 03:52 WBC 20.7 H (3.8-10.6) k/uL RBC 3.73 L (4.30-5.90) m/uL Hgb 12.8 L (13.0-17.5) gm/dL Hct 37.4 L (39.0-53.0) % MCV 100.4 H (80.0-100.0) fL Neutrophils # 17.1 H (1.3-7.7) k/uL Potassium 3.3 L (3.5-5.1) mmol/L Chloride 110 H (98-107) mmol/L Carbon Dioxide 20 L (22-30) mmol/L BUN 8 L (9-20) mg/dL Creatinine 0.58 L 0.51 L (0.66-1.25) mg/dL C-Reactive Protein 26.3 H (<1.0) mg/dL Assessment and Plan Assessment: Acute alcohol withdrawal, with respiratory failure, requiring intubation and mechanical ventilation, on August 07, 2023. S/P successful extubation, on August 13, 2023. Acute delirium tremens. Alcoholic liver disease. Methicillin-resistant Staph aureus tracheobronchitis/bronchopneumonia. Thrombocytopenia, secondary to alcoholic liver disease. Alcoholic hepatopathy. History of marijuana use. Tobacco dependence syndrome. Plan: Plan dated August 11, 2023. The patient continues on Versed at 50 mg an hour, propofol at 50 mcg/kg/min. In an attempt, to wean these medications down, for eventual extubation, we had some Haldol, and Seroquel. Blood gases show pO2 of 79, pCO2 of 37, pH is 7.45. The patient continues on tube feedings with vital HP at 53 cc an hour. The patient will have a daily interruption of sedation today. The patient's been intubated since August 07. No additional recommendations are made. Labs, x-rays, and medications are all reviewed. Prognosis is guarded. We will continue to follow the patient, make recommendations along the way. Plan dated August 20, 2023. The patient is currently on a small dose of propofol, i.e., 10 mcg/kg/min. He was weaned off the Versed. Yesterday, despite being off of all sedation, the patient was poorly responsive. We did not attempt a spontaneous breathing trial. We will do a DIS/SBT today. The patient currently remains on Zosyn and vancomycin. The BAL sampling showed evidence of MRSA. Labs, x-rays, medications are reviewed. We will continue to follow make recommendations along the way. Were hoping that his neurologic status improves, so that we can move towards weaning and extubation. Will continue to follow and make recommendations. Prognosis is guarded. Plan dated August 13, 2023. The patient remains on the mechanical ventilator. He remains on propofol for sedation, 20 mcg/kg/min. The patient did poorly with his daily interruption of sedation yesterday. He apparently started to have nausea with vomiting, and his vital signs became unstable. The patient never had a spontaneous breathing trial. Currently, we will attempt another daily interruption of sedation today. If he is not progressing, he may require tracheostomy and PEG tube by the end of the week. Labs, x-rays, medications are reviewed. The patient's overall prognosis remains guarded. He continues on vancomycin for methicillin-resistant Staph aureus tracheobronchitis/bronchopneumonia. We will continue to follow make recommendations along the way. Plan dated August 14, 2023. The patient had excellent blood gases, weaning parameters, and cuff leak yesterday, and was successfully extubated. Currently, he is on room air. The patient is on saline at 50 cc an hour. According to the nurse, the patient will need to be transferred to an outside hospital, either [facility], or [facility]. Labs, x-rays, and medications are reviewed. The patient's overall prognosis remains guarded. We will continue to follow make recommendations along the way. The patient continues on vancomycin, for Staphylococcus aureus, tracheobronchitis/bronchopneumonia. Plan dated August 15, 2023. The patient appears to be doing relatively well. The patient is currently on room air. The patient continues on cefepime and vancomycin. Probably, the cefepime can be discontinued. The patient is being followed by infectious diseases. Labs, x-rays, and medications are reviewed. The patient's overall prognosis remains guarded. Will continue to follow the patient, make recommendations along the way. Prognosis is guarded. Plan dated August 16, 2023. The patient is currently doing very well. The patient continues on vancomycin. We will continue to follow make recommendations along the way. Labs, x-rays, and medications are reviewed. In our opinion, the patient can be transferred out of the intensive care unit. We will continue to follow and make recommendations. Prognosis is guarded. He has been followed along by the infectious disease doctor. Time with Patient: Less than 30
--- NOTE | 2023-08-16 11:27 | P.PN ---
Subjective Progress Note Date: 08/16/23 Principal diagnosis: Reason for follow-up is fever pneumonia Patient is a 43-year-old male with a past medical history significant for alcohol and drug abuse patient was at [facility] undergoing rehabilitation for alcohol abuse the patient was noticed to be undergoing alcohol withdrawal for the patient was brought to the hospital did require intubation because of h is respiratory status patient did have a fever, patient did have a BAL on 08/10/2023 growing MRSA. On today's evaluation that is 08/16/2023, the patient continues to be afebrile, the patient is on room air and breathing comfortably, the Pt denies having any chest pain or any cough or sputum production, the patient denies having any abdominal pain no vomiting or any diarrhea has been reported by the nursing staff. Patient white count is down to 20.7, creatinine 0.51 Vanco trough is 16.6 Objective - Vital Signs Vital signs: Vital Signs Temp 98.3 F 08/16/23 01:45 Pulse 105 H 08/16/23 01:45 Resp 18 08/16/23 01:45 BP 157/100 08/16/23 01:45 Pulse Ox 93 L 08/16/23 01:45 FiO2 50 08/13/23 10:38 Intake & Output 08/15/23 08/16/23 08/16/23 18:59 06:59 18:59 Intake Total 600 550 Balance 600 550 Weight 75.7 kg Intake: IV 550 Sodium Chloride 0.9% 1, 550 000 ml @ 50 mls/hr IV . Q20H [facility] Rx#:[id number] Oral 600 Other: Voiding Method Toilet Toilet Urinal Urinal # Voids 10 9 # Bowel Movements 1 1 ABP, PAP, CO, CI - Last Documented Arterial Blood Pressure 209/100 - Exam GENERAL DESCRIPTION: Middle-age male intubated on the vent RESPIRATORY SYSTEM: Unlabored breathing , decreased breath sounds at bases HEART: S1 S2 regular rate and rhythm , ABDOMEN: Soft , no tenderness EXTREMITIES: No edema feet - Labs CBC & Chem 7: 08/16/23 03:52 08/16/23 03:52 Labs: Abnormal Lab Results - Last 24 Hours (Table) 08/15/23 08/16/23 08/16/23 Range/Units 11:40 03:52 03:52 WBC 20.7 H (3.8-10.6) k/uL RBC 3.73 L (4.30-5.90) m/uL Hgb 12.8 L (13.0-17.5) gm/dL Hct 37.4 L (39.0-53.0) % MCV 100.4 H (80.0-100.0) fL Neutrophils # 17.1 H (1.3-7.7) k/uL Potassium 3.3 L (3.5-5.1) mmol/L Chloride 110 H (98-107) mmol/L Carbon Dioxide 20 L (22-30) mmol/L BUN 8 L (9-20) mg/dL Creatinine 0.58 L 0.51 L (0.66-1.25) mg/dL C-Reactive Protein 26.3 H (<1.0) mg/dL Assessment and Plan (1) Sepsis Current Visit: Yes Status: Acute Code(s): A41.9 - SEPSIS, UNSPECIFIED ORGANISM SNOMED Code(s): 07093533 (2) Pneumonia Current Visit: Yes Status: Acute Code(s): J18.9 - PNEUMONIA, UNSPECIFIED ORGANISM SNOMED Code(s): 357968591 (3) MRSA (methicillin resistant staph aureus) culture positive Current Visit: Yes Status: Acute Code(s): Z22.322 - CARRIER OR SUSPECTED CARRIER OF METHICILLIN RESIS STAPH SNOMED Code(s): 452543519 (4) Oral thrush Current Visit: Yes Status: Acute Code(s): B37.0 - CANDIDAL STOMATITIS SNOMED Code(s): 51043680 Plan: 1patient with sepsis in this patient who did have fever tachycardia elevated white count in this patient admitted to hospital with alcohol withdrawal symptoms and concern for possible component of aspiration pneumonitis with a sputum now growing MRSA 2-blood cultures remains to be negative 3-patient did have resolution of his fever however worsening leukocytosis more likely thrush and oropharyngeal candidiasis patient was started on Diflucan we will add nystatin swish and swallow continue with the vancomycin pharmacy to dose for underlying MRSA pneumonia cefepime discontinued Dictation was produced using [employer] software. please excuse any grammatical, word or spelling errors. Time with Patient: Less than 30
[2023-08-16] MEDS: FLUCONAZOLE 100 MG TAB PO SCH (11:49)
[2023-08-16] MEDS: NYSTATIN 100,000 UNIT/ML SUSP 500,000 UNIT/5 ML CUP PO SCH (11:50)
--- NOTE | 2023-08-16 20:26 | P.PN ---
Subjective patient is of 43-year-old gentleman with past medical significant for alcohol abuse who presented to the ER for alcohol detox. Patient was sent to the ER from [place] where he was admitted on Friday for alcohol detox. Patient admits to drinking 1 L of alcohol daily. Denies any use of recreational drugs. Patient stated that he wanted to quit drinking as it was causing problems for his family. Denies any auditory or visualizations. There is no complaint of suicidal thoughts. Patient was being treated with oral Ativan at [place] but patient was getting restless and tachycardic. Patient was also complaining of increased shakiness. There was complaint of nausea and vomiting. Denies abdominal pain. Denies any chest pain or shortness of breath. Initial lab work done in the ER showed WBC 8.3, hemoglobin 13.3, platelet count 70, sodium 130 potassium 4.2, BUN 22, creatinine 1.12, magnesium 1.4 AST 164, ALT 140 Influenza A not detected Influenza B not detected RSV not detected COVID-19 not detected UA negative for infection EKG done in the ER showed heart rate of 120 , no ST segment elevation or depression seen, no T-wave inversions seen. Chest x-ray done in the ER no acute cardiopulmonary process Patient admitted to internal medicine service 08/07. Patient seen examined. Patient's CIWA scores were high, was started on Precedex drip yesterday afternoon and was transferred to ICU. Patient continued to be agitated, was intubated and placed on propofol and Versed. Currently on vent. 08/08. Patient seen and examined. Continues to be sedated on propofol and Versed. Patient having low-grade fevers, started on IV Zosyn. 08/09. Patient seen and examined. Blood work done this morning showed WBC 12.8, hemoglobin 15.3, platelet count 82 sodium 136, potassium 3.3, BUN 12, creatinine 0.64. Patient afebrile overnight. Still tachycardic 08/10. Patient seen and examined. Lab work done this morning showed WBC 12.3, hemoglobin 14.6, platelet count 99, sodium 110, potassium 3.8, BUN 13, creatinine 0.59,. Continues to be intubated and sedated 08/11. Patient seen examined. Labs done showed WBC 9.4, hemoglobin 13.5, platelet count 152, sodium 138, potassium 3.9, BUN 12, creatinine 0.57. Patient underwent bronchoscopy yesterday. Critical care added Haldol and Seroquel, want to wean down on sedation. 08/12/2023 Patient is in the MICU. Currently intubated and on mechanical ventilator. Sedation was off briefly. BAL culture is growing MRSA status post bronchoscopy on 08/10/2023. Currently on vancomycin. Patient is on IV hydration with normal saline at 50 mL's per hour. On alcohol withdrawal protocol. Chest x-ray showed ongoing small bilateral pleural effusions with adjacent atelectasis and consolidation. 08/13/2023 Patient is extubated today. Currently in the MICU. Drowsy and lethargic. Requiring 2 L oxygen by nasal cannula. Afebrile. Patient is being continued on antibiotics vancomycin due to BAL cultures showing MRSA. Laboratory data showed worsening WBC 16.9 today. Hemoglobin 13.3 and platelets 270, sodium 1:30 potassium 3.6 chloride 110 bicarb is 22 BUN 40 and creatinine 0.520 blood sugar 113. 08/14/2023 Patient is drowsy and lethargic. Patient was transferred to bedside recliner. Still confused and getting out of bed. Otherwise patient is on room air. No complaints of chest pain or shortness of breath. Patient does have difficulty swallowing and having very minimal oral input. Patient getting IV hydration with normal saline at 50 mL's per hour. Patient has been afebrile. Cough but unable to bring out sputum.. Otherwise WBC went up to 21.4. Patient is on vancomycin. Bronchial cultures positive for MRSA. Other laboratory data reviewed. 08/15/2023 Patient is in the MICU. Seems to be more awake and able to communicate slowly. Patient still very weak and slid to the floor on the side of the bathroom door this morning. No complaints of head injury. No complaints of back pain currently. Patient has been afebrile. No nausea or vomiting. No headache. No chest pain. No complaints of worsening shortness of breath. Patient is on room air. Patient was also started on oral diet. Otherwise leukocytosis trending up with WBC 22.8 today. Hemoglobin 12.7 and platelets 85 potassium 3.3 chloride 109 bicarb is 20 BUN 11 creatinine 0.52 and procalcitonin level 0.22 Patient is being continued on vancomycin and cefepime and Diflucan is being added by ID. PHYSICAL EXAMINATION: 08/16/2023 Patient awake at baseline She is still tachypneic especially when talking He is on IV vancomycin for MRSA pneumonia He denies hallucination and his delirium tremens is improving. He remains on IV Ativan as needed for anxiety and withdrawal. Currently improving and he is going to be transferred out of the ICU today to the general medical floor. Sitter at bedside Patient feels depressed but denies suicidal/homicidal ideation Psychiatry already evaluated the patient on admission Objective - Vital Signs Vital signs: Vital Signs Temp 98.6 F 08/16/23 08:00 Pulse 111 H 08/16/23 08:00 Resp 20 08/16/23 08:00 BP 110/65 08/16/23 08:00 Pulse Ox 94 L 08/16/23 08:00 FiO2 50 08/13/23 10:38 Intake & Output 08/15/23 08/16/23 08/16/23 18:59 06:59 18:59 Intake Total 600 550 Balance 600 550 Weight 75.7 kg Intake: IV 550 Sodium Chloride 0.9% 1, 550 000 ml @ 50 mls/hr IV . Q20H [facility] Rx#:[id number] Oral 600 Other: Voiding Method Toilet Toilet Toilet Urinal Urinal Urinal # Voids 10 9 # Bowel Movements 1 1 ABP, PAP, CO, CI - Last Documented Arterial Blood Pressure 209/100 - Exam GENERAL: The patient is alert and oriented x3, not in any acute distress. Well developed, well nourished. HEENT: Pupils are round and equally reacting to light. EOMI. No scleral icterus. No conjunctival pallor. Normocephalic, atraumatic. No pharyngeal erythema. No thyromegaly. CARDIOVASCULAR: S1 and S2 present. No murmurs, rubs, or gallops. PULMONARY: Chest is clear to auscultation, no wheezing , no crackles. ABDOMEN: Soft, nontender, nondistended, normoactive bowel sounds. No palpable organomegaly. MUSCULOSKELETAL: No joint swelling or deformity. EXTREMITIES: No cyanosis, clubbing, or pedal edema. NEUROLOGICAL: Gross neurological examination did not reveal any focal deficits. SKIN: No rashes. no petechiae. - Labs CBC & Chem 7: 08/16/23 03:52 08/16/23 14:51 Labs: Abnormal Lab Results - Last 24 Hours (Table) 08/15/23 08/16/23 08/16/23 Range/Units 11:40 03:52 03:52 WBC 20.7 H (3.8-10.6) k/uL RBC 3.73 L (4.30-5.90) m/uL Hgb 12.8 L (13.0-17.5) gm/dL Hct 37.4 L (39.0-53.0) % MCV 100.4 H (80.0-100.0) fL Neutrophils # 17.1 H (1.3-7.7) k/uL Potassium 3.3 L (3.5-5.1) mmol/L Chloride 110 H (98-107) mmol/L Carbon Dioxide 20 L (22-30) mmol/L BUN 8 L (9-20) mg/dL Creatinine 0.58 L 0.51 L (0.66-1.25) mg/dL C-Reactive Protein 26.3 H (<1.0) mg/dL Assessment and Plan Assessment: Acute alcohol withdrawal with DTs. Requiring intubation and mechanical ventilator. Extubated on 08/13/2023. Improving slowly. Possible MRSA pneumonia with BAL cultures positive for MRSA. Worsening leukocytosis Lethargic and weak. Improving Severe alcohol abuse Hypomagnesemia Thrombocytopenia Acute Alcoholic hepatitis Marijuana use admitting to smoking 1 joint daily Chronic and ongoing tobacco dependence of up to 2 packs/day Plan: Continue with Ativan as needed Continue with Haldol as needed and Seroquel On IV antibiotics with IV vancomycin and Diflucan for MRSA pneumonia On thiamine Several consultants including pulmonary/critical care team, infectious disease psychiatrist evaluated the patient Labs and medication were reviewed.. Continue same treatment. Continue with symptomatic treatment. Resume home medication. Monitor labs and vitals. DVT and GI prophylaxis. Further recommendations as per clinical course of the patient DVT prophylaxis: Subcutaneous heparin GI Prophylaxis: Pepcid PT/OT: Pending Prognosis is guarded
[2023-08-16] MEDS ORDERED: NICOTINE 14MG/24HR PATCH TRANSDERM SCH (21:00)
[2023-08-16] MEDS: POTASSIUM CHLORIDE ER 20 MEQ TAB.ER PO STA (21:22)
[2023-08-17 07:55] LABS: African American GFR (CKD) >90 (>60 ml/min/1.73 sqM); Non-African American GFR(CKD) >90 (>60 ml/min/1.73 sqM)
--- NOTE | 2023-08-17 08:17 | P.PN ---
Subjective Progress Note Date: 08/17/23 This is a 43-year-old male patient who resides in the [facility] who had recently been admitted to [facility] for alcohol withdrawal. He was admitting to drinking 1 L of tequila per day. He smokes 2 packs of cigarettes per day and 1 marijuana joint per day. States his last drink was at noon on the 12th prior to his admission to [place]. He was sent here today by EMS for acute withdrawal syndromedelirium. Chest x-ray revealed no acute pulmonary process. EKG revealed sinus tachycardia. White count 8.3. Hemoglobin 16.3. Platelets 70,000. Sodium 137. Potassium 4.2. Bicarb 29. BUN 22. Creatinine 1.12. AST 164. ALT 140. Lipase 146. Viral screen negative. Since his arrival he has required 10 mg of Ativan. He is still quite restless. Precedex drip was ordered and he will be admitted to the intensive care unit. He is seen today in consultation in the emergency department. He has restless. Walking around in his room. Security is at the bedside. Precedex had not been started yet. He is maintaining O2 saturations in the 90s on room air. He is tachycardic in the 110s, 120s. Blood pressure stable. Afebrile. Patient was reevaluated today on 08/07/2023, patient developed worsening picture of alcohol withdrawal and acute delirium tremens, requiring intubation and mechanical ventilation. He is now on assist-control 18 tidal volume 450 FiO2 35% and PEEP of 5, ABG showed a pO2 of 148 pCO2 34 pH of 7.44 hence his rate was cut down to 16 and his tidal volume kept the same FiO2 down to 35% patient is still requiring significant amount of sedation including propofol at 60 mcg/kg/min, Versed was added this morning mostly because of persistent agitation in spite of propofol on board. CBC is relatively normal basic metabolic profile is normal except for low potassium of 3.3 chest x-ray is showing mostly left basilar atelectasis. Doubt pneumonia. Screening for influenza A B, RSV and COVID-19 all negative patient remains on the CIWA protocol, and spite of being on Precedex yesterday, patient continued to develop alcohol withdrawal requiring intubation mechanical ventilation. Patient was reevaluated today on 08/08/2023, patient remains in the ICU, intubated and mechanically ventilated. Patient is on assist-control rate of 16 tidal volume 450 FiO2 35% PEEP of 5. Patient is still requiring significant amount of sedation to keep him calm, otherwise he gets agitated, restless, and becomes asynchronous with mechanical ventilation. He is now on propofol at 50 mcg/kg/min and Versed at 15 mg/h. IV fluid is running at 2.9 normal saline 75 cc/h. Chest x-ray is showing more atelectasis, and more pleural effusions, hence I am cutting down his IV fluid to KVO and I am giving him Lasix 40 mg IV push x 1. In addition considering the patient is showing a low-grade temp with a temp of 99 today, I am recommending Zosyn to be started empirically. Patient is a good set up for aspiration pneumonia. And the findings of atelec tasis/infiltrates are noted in both lungs today. Left more so than right. Patient is receiving enteral feeding. He is also on GI DVT prophylaxis. His WBC count is 9.9 hemoglobin is 15 electrolytes are normal BUN is normal creatinine is normal, liver enzymes are improving steadily Patient was reevaluated today on 08/09/2023, patient remains in the ICU intubated and mechanically ventilated on assist-control rate of 16 tidal volume 450 FiO2 35% PEEP of 5 ABG showed a pO2 of 82 pCO2 36 pH of 7.43. Patient continues to require significant amount of sedation including propofol at 50 mcg/kg/min Versed at 15 mg/h. Patient is also 1.9 normal saline at 75 cc/h and receiving vital HP. Empirically the patient is on Zosyn, endotracheal tube seems to be high, and this will be advanced down 3 cm today. Chest x-ray continues to show some atelectasis and opacities at the bases especially at the left base, patient is empirically on Zosyn. WBC count is 12.8 hemoglobin 15.3. Basic metabolic profile is normal bicarb is 21 renal profile is normal Progress note dated August 11, 2023. The patient was seen today in room 266. The patient continues on mechanical ventilation. He is on volume assist-control, rate 16, tidal volume 500, FiO2 50%, PEEP of 5. Blood gases show pO2 79, pCO2 37, pH is 7.45. The patient continues on propofol at 50 mcg/kg/min, Versed at 50 mg an hour, and saline at 50 cc an hour. The patient is receiving vital high-protein at 53 cc an hour. The patient was admitted to the hospital on August 06, and was intubated the following day on the . Today, we will attempt a daily interruption of sedation. In addition, the patient will have some Haldol, and Seroquel, added to his regimen, for additional sedation. White count 11.4, hemoglobin 13.5, hematocrit 41, with a normal platelet count. Sodium 138, potassium 3.9, chlorides 111, CO2 23, BUN 12, creatinine 0.57. Glucose is 114. Magnesium 1.9. Progress note dated August 12, 2023. 43-year-old male seen today in room 266. The patient remains on the mechanical ventilator. He is on volume assist-control, rate 16, tidal volume 500, FiO2 50%, PEEP of 5. Blood gases show pO2 of 76, pCO2 34, pH is 7.47. This blood gas is consistent with a mild respiratory alkalosis. The patient is getting pr opofol at 10 mcg/kg/min, saline at 50 cc an hour, and vital high-protein at 59 cc an hour. That is goal. The patient continues on Zosyn, and vancomycin. The BAL sampling, did reveal evidence of methicillin-resistant Staph aureus, hence the vancomycin. White count 13.6, hemoglobin 13.4, hematocrit 40.1, platelet count 250,000. Sodium 139, potassium 4, chlorides 114, CO2 24, BUN 14, creatinine 0.61. Calcium 8.6. Magnesium 2.1. BAL sampling from August 10, was positive for methicillin-resistant Staph aureus. This x-ray shows bilateral effusions, which are relatively small, and bibasilar atelectasis. Progress note dated August 13, 2023. 43-year-old male seen today in room 266. Patient remains on mechanical ventilator. Ventilator settings include volume assist-control, rate 16, tidal volume 500, FiO2 50%, PEEP of 5. Blood gases show pO2 of 83, pCO2 33, and a pH of 7.48. The patient is getting propofol at 20 mcg/kg/min, saline at 50 cc an hour, and tube feedings with vital HP at goal, which is 59 cc an hour. Today, we will attempt another daily interruption of sedation, and potentially a spontaneous breathing trial. I did alert the nurse to the effect, that should he not progress, he may require tracheostomy and PEG tube placement by the end of the week. Current labs include a white count 16.9, hemoglobin 13.3, hematocrit 39.7, platelet count 270,000. Sodium 139, potassium 3.6, chlorides 110, CO2 22, BUN 14, creatinine 0.52. Glucose is 124. Calcium 8.7. Bronchial washings show evidence of methicillin-resistant Staph aureus. This was done on August 10. Chest x-ray revealed some mild interstitial edema, and small effusions or basilar atelectasis. Progress note dated August 14, 2023. 43-year-old male seen today in room 266. Yesterday, because of good weaning parameters, blood gas, and comfortably, the patient was successfully extubated. This occurred on August 13. The patient is currently in the ICU, room 266. The patient is on room air. The patient is getting saline at 50 cc an hour. The patient has had an uneventful period of time, postextubation. No new labs today. The nurses are looking into possible transfer, the [facility]. Progress note dated August 15, 2023. 43-year-old male seen in room 266. Currently, the patient is doing relatively well. The patient is on room air. He is receiving saline at 50 cc an hour. The patient is stable for transfer, out of the intensive care unit, in my opinion. White count 22.8, hemoglobin 12.7, hematocrit 36.7, with a normal platelet count. Sodium 139, potassium 3.3, chlorides 109, CO2 20, BUN 11, creatinine 0.52. Procalcitonin level was 0.22. Bronchoscopy, from August 10, was positive for methicillin-resistant Staph aureus. Patient continues on cefepime and vancomycin. Chest x-ray shows patchy density at the left lung base. There is also some bibasilar atelectasis. Progress note dated August 16, 2023. The patient is seen today in room 266. He is on room air. He is getting saline at 50 cc an hour. He has no new complaints today. According to the nurse, he had an uneventful night. His IV can be discontinued. He is eating and drinking appropriately. Labs today include a white count 20.7, hemoglobin 12.8, hematocrit 37.4, and platelet count which is normal. Sodium 141, potassium 3.3, chlorides 110, CO2 20, BUN 8, creatinine 0.51. BAL sampling from August 10, was positive for methicillin-resistant Staph aureus. Chest x-ray today shows some left basilar infiltrates or atelectasis. The patient is seen today August 17, 2023 in follow-up on the regular medical floor. He was transferred out of the intensive care unit yesterday. He is awake and alert in no acute distress. He is maintaining O2 saturations in the 90s on room air. No IV fluids. He is still confused at times. chair caner remains at the bedside. Bronchial wash cultures were positive for MRSA. Blood cultures revealed no growth. Creatinine 0.57. GFR greater than 90. He is continued on vancomycin and Diflucan. He is more calm and cooperative on Seroquel. NicoDerm patch in place. Objective - Vital Signs Vital signs: Vital Signs Temp 98.4 F 08/17/23 02:00 Pulse 94 08/17/23 02:00 Resp 18 08/17/23 02:00 BP 131/81 08/17/23 02:00 Pulse Ox 93 L 08/17/23 02:00 FiO2 50 08/13/23 10:38 Intake & Output 08/16/23 08/17/23 08/17/23 18:59 06:59 18:59 Intake Total 1150 Output Total 1125 600 Balance 25 -600 Weight 74 kg Intake: IV 150 Sodium Chloride 0.9% 1, 150 000 ml @ 50 mls/hr IV . Q20H [facility] Rx#:[id number] Intake, IV Titration 500 Amount Vancomycin 1,750 mg In 500 Sodium Chloride 0.9% 500 ml 500 ml @ 167 mls/hr IVPB Q8H [facility] Rx#: [id number] Oral 500 Output: Urine 1125 600 Other: Voiding Method Toilet Toilet Urinal Urinal # Bowel Movements 2 ABP, PAP, CO, CI - Last Documented Arterial Blood Pressure 209/100 - Exam GENERAL EXAM: Alert, currently calm and cooperative 43-year-old male, on room air, comfortable in no apparent distress. HEAD: Normocephalic. EYES: Normal reaction of pupils, equal size. NOSE: Clear with pink turbinates. THROAT: No erythema or exudates. NECK: No masses, no JVD. CHEST: No chest wall deformity. LUNGS: Equal air entry with few scattered rhonchi. CVS: S1 and S2 normal with no audible murmur, regular rhythm. ABDOMEN: No hepatosplenomegaly, normal bowel sounds, no guarding or rigidity. SPINE: No scoliosis or deformity SKIN: No rashes CENTRAL NERVOUS SYSTEM: No focal deficits, tone is normal in all 4 extremities. EXTREMITIES: There is no peripheral edema. No clubbing, no cyanosis. Peripheral pulses are intact. - Labs CBC & Chem 7: 08/16/23 03:52 08/17/23 06:24 Labs: Abnormal Lab Results - Last 24 Hours (Table) 08/16/23 08/17/23 Range/Units 14:51 06:24 Potassium 3.3 L (3.5-5.1) mmol/L Creatinine 0.57 L (0.66-1.25) mg/dL Microbiology - Last 24 Hours (Table) 08/11/23 12:52 Blood Culture - Final Blood Assessment and Plan Assessment: Acute alcohol withdrawal syndrome, admitted to [place] [facility] on 06/03/2024, brought here to the emergency room 06/05/2024 for delirium. He required mechanical he required intubation mechanical ventilatory support from August 07 through August 13, 2023 Acute delirium tremens Alcohol abuse admitting to 1 L of tequila daily Alcoholic liver disease secondary to above Thrombocytopenia secondary to above Marijuana use admitting to smoking 1 joint daily Chronic and ongoing tobacco dependence of up to 2 packs/day Plan: The patient was seen and evaluated Labs and medications reviewed Currently stable and on room air Continued on vancomycin Continued on the CIWA protocol chair caner remains at the bedside The patient is planning to return to [place] postdischarge This patient was seen independently by the pulmonary nurse practitioner addressing pulmonary issues I have personally seen and examined the patient, performed the documentation and the assessment and plan as written. Number of minutes spent on the visit: 24.
--- NOTE | 2023-08-17 12:42 | P.PN ---
Subjective Progress Note Date: 08/17/23 patient is of 43-year-old gentleman with past medical significant for alcohol abuse who presented to the ER for alcohol detox. Patient was sent to the ER from [place] where he was admitted on Friday for alcohol detox. Patient admits to drinking 1 L of alcohol daily. Denies any use of recreational drugs. Patient stated that he wanted to quit drinking as it was causing problems for his family. Denies any auditory or visualizations. There is no complaint of suicidal thoughts. Patient was being treated with oral Ativan at [place] but patient was getting restless and tachycardic. Patient was also complaining of increased shakiness. There was complaint of nausea and vomiting. Denies a bdominal pain. Denies any chest pain or shortness of breath. Initial lab work done in the ER showed WBC 8.3, hemoglobin 13.3, platelet count 70, sodium 130 potassium 4.2, BUN 22, creatinine 1.12, magnesium 1.4 AST 164, ALT 140 Influenza A not detected Influenza B not detected RSV not detected COVID-19 not detected UA negative for infection EKG done in the ER showed heart rate of 120 , no ST segment elevation or depression seen, no T-wave inversions seen. Chest x-ray done in the ER no acute cardiopulmonary process Patient admitted to internal medicine service 08/07. Patient seen examined. Patient's CIWA scores were high, was started on Precedex drip yesterday afternoon and was transferred to ICU. Patient continued to be agitated, was intubated and placed on propofol and Versed. Currently on vent. 08/08. Patient seen and examined. Continues to be sedated on propofol and Versed. Patient having low-grade fevers, started on IV Zosyn. 08/09. Patient seen and examined. Blood work done this morning showed WBC 12.8, hemoglobin 15.3, platelet count 82 sodium 136, potassium 3.3, BUN 12, creatinine 0.64. Patient afebrile overnight. Still tachycardic 08/10. Patient seen and examined. Lab work done this morning showed WBC 12.3, hemoglobin 14.6, platelet count 99, sodium 110, potassium 3.8, BUN 13, creatinine 0.59,. Continues to be intubated and sedated 08/11. Patient seen examined. Labs done showed WBC 9.4, hemoglobin 13.5, platelet count 152, sodium 138, potassium 3.9, BUN 12, creatinine 0.57. Patient underwent bronchoscopy yesterday. Critical care added Haldol and Seroquel, want to wean down on sedation. 08/12/2023 Patient is in the MICU. Currently intubated and on mechanical ventilator. Sedation was off briefly. BAL culture is growing MRSA status post bronchoscopy on 08/10/2023. Currently on vancomycin. Patient is on IV hydration with normal saline at 50 mL's per hour. On alcohol withdrawal protocol. Chest x-ray showed ongoing small bilateral pleural effusions with adjacent atelectasis and consolidation. 08/13/2023 Patient is extubated today. Currently in the MICU. Drowsy and lethargic. Requiring 2 L oxygen by nasal cannula. Afebrile. Patient is being continued on antibiotics vancomycin due to BAL cultures showing MRSA. Laboratory data showed worsening WBC 16.9 today. Hemoglobin 13.3 and platelets 270, sodium 1:30 potassium 3.6 chloride 110 bicarb is 22 BUN 40 and creatinine 0.520 blood sugar 113. 08/14/2023 Patient is drowsy and lethargic. Patient was transferred to bedside recliner. Still confused and getting out of bed. Otherwise patient is on room air. No complaints of chest pain or shortness of breath. Patient does have difficulty swallowing and having very minimal oral input. Patient getting IV hydration with normal saline at 50 mL's per hour. Patient has been afebrile. Cough but unable to bring out sputum.. Otherwise WBC went up to 21.4. Patient is on vancomycin. Bronchial cultures positive for MRSA. Other laboratory data reviewed. 08/15/2023 Patient is in the MICU. Seems to be more awake and able to communicate slowly. Patient still very weak and slid to the floor on the side of the bathroom door this morning. No complaints of head injury. No complaints of back pain currently. Patient has been afebrile. No nausea or vomiting. No headache. No chest pain. No complaints of worsening shortness of breath. Patient is on room air. Patient was also started on oral diet. Otherwise leukocytosis trending up with WBC 22.8 today. Hemoglobin 12.7 and platelets 85 potassium 3.3 chloride 109 bicarb is 20 BUN 11 creatinine 0.52 and procalcitonin level 0.22 Patient is being continued on vancomycin and cefepime and Diflucan is being added by ID. 08/16/2023 Patient awake at baseline She is still tachypneic especially when talking He is on IV vancomycin for MRSA pneumonia He denies hallucination and his delirium tremens is improving. He remains on IV Ativan as needed for anxiety and withdrawal. Currently improving and he is going to be transferred out of the ICU today to the general medical floor. Sitter at bedside Patient feels depressed but denies suicidal/homicidal ideation Psychiatry already evaluated the patient on admission 08/17. Patient seen and examined. Sitting comfortably in the bed. Sitter at the bedside. Patient is alert and oriented. Denies any auditory or visual reid ucinations. Denies any dizziness. Tolerating diet. REVIEW OF SYSTEMS: Denies any chest pain. Denies shortness of breath. Denies nausea, vomiting abdominal pain. PHYSICAL EXAMINATION: GENERAL: The patient is alert and oriented x 3 HEENT: Pupils are round and equally reacting to light. EOMI. No scleral icterus. No conjunctival pallor. Normocephalic, atraumatic. No pharyngeal erythema. No thyromegaly. CARDIOVASCULAR: S1 and S2 present. No murmurs, rubs, or gallops. PULMONARY: Chest is clear to auscultation, no wheezing or crackles. ABDOMEN: Soft, nontender, nondistended, normoactive bowel sounds. No palpable organomegaly. MUSCULOSKELETAL: No joint swelling or deformity. EXTREMITIES: No cyanosis, clubbing, or pedal edema. NEUROLOGICAL: Moving all extremities. Cranial nerves II to 12 intact SKIN: No rashes. Assessment and plan Acute alcohol withdrawal with DTs. Requiring intubation and mechanical ventilator. Extubated on 08/13/2023. Possible MRSA pneumonia with BAL cultures positive for MRSA. Worsening leukocytosis alcohol detox Hypomagnesemia Thrombocytopenia Alcoholic hepatitis Marijuana use admitting to smoking 1 joint daily Chronic and ongoing tobacco dependence of up to 2 packs/day Monitor vital signs Monitor CBC Monitor CMP Continue telemetry monitoring Continue CIWA protocol Continue IV vancomycin and Diflucan Continue Lopressor 25 mg twice a day Continue thiamine and folic acid Monitor LFTs ID following Pulmonology following Labs and medication were reviewed.. Continue same treatment. Continue with symptomatic treatment. Resume home medication. Monitor labs and vitals. DVT and GI prophylaxis. Further recommendations as per clinical course of the patient Dictation was produced using dragon dictation software. please excuse any grammatical, word or spelling errors. Objective - Vital Signs Vital signs: Vital Signs Temp 98.4 F 08/17/23 07:17 Pulse 89 08/17/23 07:17 Resp 18 08/17/23 07:17 BP 150/90 08/17/23 07:17 Pulse Ox 93 L 08/17/23 07:17 FiO2 50 08/13/23 10:38 Intake & Output 08/16/23 08/17/23 08/17/23 18:59 06:59 18:59 Intake Total 1150 Output Total 1125 600 Balance 25 -600 Weight 74 kg Intake: IV 150 Sodium Chloride 0.9% 1, 150 000 ml @ 50 mls/hr IV . Q20H [facility] Rx#:[id number] Intake, IV Titration 500 Amount Vancomycin 1,750 mg In 500 Sodium Chloride 0.9% 500 ml 500 ml @ 167 mls/hr IVPB Q8H [facility] Rx#: [id number] Oral 500 Output: Urine 1125 600 Other: Voiding Method Toilet Toilet Toilet Urinal Urinal Urinal # Bowel Movements 2 ABP, PAP, CO, CI - Last Documented Arterial Blood Pressure 209/100 - Labs CBC & Chem 7: 08/16/23 03:52 08/17/23 06:24 Labs: Abnormal Lab Results - Last 24 Hours (Table) 08/16/23 08/17/23 Range/Units 14:51 06:24 Potassium 3.3 L (3.5-5.1) mmol/L Creatinine 0.57 L (0.66-1.25) mg/dL Microbiology - Last 24 Hours (Table) 08/16/23 06:30 Gram Stain - Preliminary Sputum 08/11/23 12:52 Blood Culture - Final Blood
--- NOTE | 2023-08-17 14:46 | P.PN ---
Subjective Progress Note Date: 08/17/23 Principal diagnosis: Reason for follow-up is fever pneumonia Patient is a 43-year-old male with a past medical history significant for alcohol and drug abuse patient was at [place] undergoing rehabilitation for alcohol abuse the patient was noticed to be undergoing alcohol withdrawal for the patient was brought to the hospital did require intubation because of h is respiratory status patient did have a fever, patient did have a BAL on 08/10/2023 growing MRSA. On today's evaluation that is 08/17/2023, Patient is afebrile ,patient is currently on room air and denies having any shortness of breath, the patient denies any chest pain or worsening cough, the patient denies any nausea vomiting did not have any abdominal pain and no diarrhea. His creatinine 0.57 no CBC done today Objective - Vital Signs Vital signs: Vital Signs Temp 98.4 F 08/17/23 07:17 Pulse 89 08/17/23 07:17 Resp 18 08/17/23 07:17 BP 150/90 08/17/23 07:17 Pulse Ox 93 L 08/17/23 07:17 FiO2 50 08/13/23 10:38 Intake & Output 08/16/23 08/17/23 08/17/23 18:59 06:59 18:59 Intake Total 1150 Output Total 1125 600 Balance 25 -600 Weight 74 kg Intake: IV 150 Sodium Chloride 0.9% 1, 150 000 ml @ 50 mls/hr IV . Q20H [facility] Rx#:[id number] Intake, IV Titration 500 Amount Vancomycin 1,750 mg In 500 Sodium Chloride 0.9% 500 ml 500 ml @ 167 mls/hr IVPB Q8H [facility] Rx#: [id number] Oral 500 Output: Urine 1125 600 Other: Voiding Method Toilet Toilet Toilet Urinal Urinal Urinal # Bowel Movements 2 ABP, PAP, CO, CI - Last Documented Arterial Blood Pressure 209/100 - Exam GENERAL DESCRIPTION: Middle-age male intubated on the vent RESPIRATORY SYSTEM: Unlabored breathing , decreased breath sounds at bases HEART: S1 S2 regular rate and rhythm , ABDOMEN: Soft , no tenderness EXTREMITIES: No edema feet - Labs CBC & Chem 7: 08/16/23 03:52 08/17/23 06:24 Labs: Abnormal Lab Results - Last 24 Hours (Table) 08/16/23 08/17/23 Range/Units 14:51 06:24 Potassium 3.3 L (3.5-5.1) mmol/L Creatinine 0.57 L (0.66-1.25) mg/dL Microbiology - Last 24 Hours (Table) 08/11/23 12:52 Blood Culture - Final Blood Assessment and Plan (1) Sepsis Current Visit: Yes Status: Acute Code(s): A41.9 - SEPSIS, UNSPECIFIED ORGANISM SNOMED Code(s): 88919774 (2) Pneumonia Current Visit: Yes Status: Acute Code(s): J18.9 - PNEUMONIA, UNSPECIFIED ORGANISM SNOMED Code(s): 258949330 (3) MRSA (methicillin resistant staph aureus) culture positive Current Visit: Yes Status: Acute Code(s): Z22.322 - CARRIER OR SUSPECTED CARRIER OF METHICILLIN RESIS STAPH SNOMED Code(s): 421560975 (4) Oral thrush Current Visit: Yes Status: Acute Code(s): B37.0 - CANDIDAL STOMATITIS SNOMED Code(s): 81466114 Plan: 1patient with sepsis in this patient who did have fever tachycardia elevated white count in this patient admitted to hospital with alcohol withdrawal symptoms and concern for possible component of aspiration pneumonitis with a sputum now growing MRSA 2-blood cultures remains to be negative 3-patient did have resolution of his fever however worsening leukocytosis more likely thrush and oropharyngeal candidiasis patient to continue with Diflucan along with nystatin swish and swallow, check a CBC with a.m. lab 4-patient to continue with the vancomycin pharmacy to dose for underlying MRSA pneumonia and watch his kidney function closely Dictation was produced using Peek dictation software. please excuse any gra mmatical, word or spelling errors.
[2023-08-18 08:22] LABS: HCT 36.3 % (39.6-50.0); HGB 12.2 g/dL (13.0-17.0); MCH 33.3 pg (27.0-32.0); MCHC 33.6 g/dL (32.0-37.0); MCV 99.2 FL (80.0-97.0); Mean Platelet Volume 10.5 FL (9.5-12.2); NRBC Per 100 WBC 0 X 10*3/uL (0.00-0.01); Platelet Count 419 X 10*3/uL (140-440); RBC 3.66 X 10*6/uL (4.40-5.60); RDW 13.4 % (11.5-14.5); WBC 20.44 X 10*3/uL (4.50-10.00)
[2023-08-18 08:38] LABS: BUN/Creat Ratio 9.83 Ratio (12.00-20.00); Blood Urea Nitrogen 5.9 mg/dL (9.0-27.0); Carbon Dioxide 21.7 mmol/L (21.6-31.8); Chloride 109 mmol/L (96-109); Glucose 94 mg/dL (70-110); Potassium 3.6 mmol/L (3.5-5.5); Sodium 143 mmol/L (135-145)
[2023-08-18 08:39] LABS: ALT 35 U/L (10-49); AST 25 U/L (14-35); Albumin 2.9 g/dL (3.8-4.9); Albumin/Globulin Ratio 1.26 Ratio (1.60-3.17); Alkaline Phosphatase 46 U/L (41-126); Calcium 8.9 mg/dL (8.7-10.3); Globulin 2.3 g/dL (1.6-3.3); Total Bilirubin 0.3 mg/dL (0.3-1.2); Total Protein 5.2 g/dL (6.2-8.2)
[2023-08-18 09:33] LABS: Basophils # (A) 0.15 X 10*3/uL (0.00-0.10); Basophils % (A) 0.7 %; Eosinophils # (A) 0.56 X 10*3/uL (0.04-0.35); Eosinophils % (A) 2.7 %; Lymphocytes # (A) 3.15 X 10*3/uL (0.90-5.00); Lymphocytes % (A) 15.4 %; Monocytes # (A) 1.89 X 10*3/uL (0.20-1.00); Monocytes % (A) 9.2 %; Neutrophils # (A) 14.56 X 10*3/uL (1.80-7.70); Neutrophils % (A) 71.4 %; RBC Morphology Normal (Normal)
[2023-08-18] MEDS: PANTOPRAZOLE 40 MG TABLET PO SCH (10:12)
[2023-08-18] MEDS ORDERED: RX INFO: IV CONTRAST WAS GIVEN 1 EACH MISC MISCELLANE PRN (12:19)
--- NOTE | 2023-08-18 12:19 | P.PN ---
Subjective Progress Note Date: 08/18/23 Principal diagnosis: Reason for follow-up is fever pneumonia Patient is a 43-year-old male with a past medical history significant for alcohol and drug abuse patient was at [place] undergoing rehabilitation for alcohol abuse the patient was noticed to be undergoing alcohol withdrawal for the patient was brought to the hospital did require intubation because of h is respiratory status patient did have a fever, patient did have a BAL on 08/10/2023 growing MRSA. On today's evaluation that is 08/18/2023,the patient denies any fever or any chills, patient is breathing comfortably on room air, the patient denies chest pain shortness of breath and no worsening cough, patient denies abdominal pain, no nausea vomiting or diarrhea. Patient white count is still up at 20.44 creatinine 0.6, sputum with present or Staph aureus Objective - Vital Signs Vital signs: Vital Signs Temp 97.6 F 08/18/23 07:38 Pulse 90 08/18/23 07:38 Resp 18 08/18/23 07:38 BP 154/102 08/18/23 07:38 Pulse Ox 95 08/18/23 07:38 FiO2 50 08/13/23 10:38 Intake & Output 08/17/23 08/18/23 08/18/23 18:59 06:59 18:59 Intake Total 2080 Output Total 950 400 175 Balance -950 1680 -175 Intake: Intake, IV Titration 1000 Amount Vancomycin 1,750 mg In 1000 Sodium Chloride 0.9% 500 ml 500 ml @ 167 mls/hr IVPB Q8H [facility] Rx#: [id number] Oral 1080 Output: Urine 950 400 175 Other: Voiding Method Toilet Toilet Urinal Urinal # Voids 6 5 1 ABP, PAP, CO, CI - Last Documented Arterial Blood Pressure 209/100 - Exam GENERAL DESCRIPTION: Middle-age male intubated on the vent RESPIRATORY SYSTEM: Unlabored breathing , decreased breath sounds at bases HEART: S1 S2 regular rate and rhythm , ABDOMEN: Soft , no tenderness EXTREMITIES: No edema feet - Labs CBC & Chem 7: 08/18/23 06:00 08/18/23 06:00 Labs: Abnormal Lab Results - Last 24 Hours (Table) 08/18/23 08/18/23 Range/Units 06:00 06:00 WBC 20.44 H (4.50-10.00) X 10*3/uL RBC 3.66 L (4.40-5.60) X 10*6/uL Hgb 12.2 L (13.0-17.0) g/dL Hct 36.3 L (39.6-50.0) % MCV 99.2 H (80.0-97.0) FL MCH 33.3 H (27.0-32.0) pg Immature Gran # 0.13 H (0.00-0.04) X 10*3/uL Neutrophils # 14.56 H (1.80-7.70) X 10*3/uL Monocytes # 1.89 H (0.20-1.00) X 10*3/uL Eosinophils # 0.56 H (0.04-0.35) X 10*3/uL Basophils # 0.15 H (0.00-0.10) X 10*3/uL Anion Gap 12.30 H (4.00-12.00) mmol/L BUN 5.9 L (9.0-27.0) mg/dL BUN/Creatinine Ratio 9.83 L (12.00-20.00) Ratio C-Reactive Protein 8.10 H (0.00-0.80) mg/dL Total Protein 5.2 L (6.2-8.2) g/dL Albumin 2.9 L (3.8-4.9) g/dL Albumin/Globulin Ratio 1.26 L (1.60-3.17) Ratio Microbiology - Last 24 Hours (Table) 08/16/23 06:30 Gram Stain - Preliminary Sputum Sputum Culture - Preliminary Presumptive Staph aureus Assessment and Plan (1) Sepsis Current Visit: Yes Status: Acute Code(s): A41.9 - SEPSIS, UNSPECIFIED ORGANISM SNOMED Code(s): 56927026 (2) Pneumonia Current Visit: Yes Status: Acute Code(s): J18.9 - PNEUMONIA, UNSPECIFIED ORGANISM SNOMED Code(s): 480960257 (3) MRSA (methicillin resistant staph aureus) culture positive Current Visit: Yes Status: Acute Code(s): Z22.322 - CARRIER OR SUSPECTED CARRIER OF METHICILLIN RESIS STAPH SNOMED Code(s): 849697730 (4) Oral thrush Current Visit: Yes Status: Acute Code(s): B37.0 - CANDIDAL STOMATITIS SNOMED Code(s): 39063278 Plan: 1patient with sepsis in this patient who did have fever tachycardia elevated white count in this patient admitted to hospital with alcohol withdrawal symptoms and concern for possible component of aspiration pneumonitis with a sputum now growing MRSA 2-blood cultures remains to be negative 3-patient did have resolution of his fever however the bed requested elevated white count concerning for possible parapneumonic effusion or developing empyema we will obtain a CT of the chest continue with the vancomycin along with nystatin swish and swallow Dictation was produced using [employer]ify dictation software. please excuse any grammatical, word or spelling errors. Time with Patient: Less than 30
--- NOTE | 2023-08-18 13:10 | P.PN ---
Subjective Progress Note Date: 08/18/23 patient is of 43-year-old gentleman with past medical significant for alcohol abuse who presented to the ER for alcohol detox. Patient was sent to the ER from [place] where he was admitted on Friday for alcohol detox. Patient admits to drinking 1 L of alcohol daily. Denies any use of recreational drugs. Patient stated that he wanted to quit drinking as it was causing problems for his family. Denies any auditory or visualizations. There is no complaint of suicidal thoughts. Patient was being treated with oral Ativan at [facility] but patient was getting restless and tachycardic. Patient was also complaining of increased shakiness. There was complaint of nausea and vomiting. Denies a bdominal pain. Denies any chest pain or shortness of breath. Initial lab work done in the ER showed WBC 8.3, hemoglobin 13.3, platelet count 70, sodium 130 potassium 4.2, BUN 22, creatinine 1.12, magnesium 1.4 AST 164, ALT 140 Influenza A not detected Influenza B not detected RSV not detected COVID-19 not detected UA negative for infection EKG done in the ER showed heart rate of 120 , no ST segment elevation or depression seen, no T-wave inversions seen. Chest x-ray done in the ER no acute cardiopulmonary process Patient admitted to internal medicine service 08/07. Patient seen examined. Patient's CIWA scores were high, was started on Precedex drip yesterday afternoon and was transferred to ICU. Patient continued to be agitated, was intubated and placed on propofol and Versed. Currently on vent. 08/08. Patient seen and examined. Continues to be sedated on propofol and Versed. Patient having low-grade fevers, started on IV Zosyn. 08/09. Patient seen and examined. Blood work done this morning showed WBC 12.8, hemoglobin 15.3, platelet count 82 sodium 136, potassium 3.3, BUN 12, creatinine 0.64. Patient afebrile overnight. Still tachycardic 08/10. Patient seen and examined. Lab work done this morning showed WBC 12.3, hemoglobin 14.6, platelet count 99, sodium 110, potassium 3.8, BUN 13, creatinine 0.59,. Continues to be intubated and sedated 08/11. Patient seen examined. Labs done showed WBC 9.4, hemoglobin 13.5, platelet count 152, sodium 138, potassium 3.9, BUN 12, creatinine 0.57. Patient underwent bronchoscopy yesterday. Critical care added Haldol and Seroquel, want to wean down on sedation. 08/12/2023 Patient is in the MICU. Currently intubated and on mechanical ventilator. Sedation was off briefly. BAL culture is growing MRSA status post bronchoscopy on 08/10/2023. Currently on vancomycin. Patient is on IV hydration with normal saline at 50 mL's per hour. On alcohol withdrawal protocol. Chest x-ray showed ongoing small bilateral pleural effusions with adjacent atelectasis and consolidation. 08/13/2023 Patient is extubated today. Currently in the MICU. Drowsy and lethargic. Requiring 2 L oxygen by nasal cannula. Afebrile. Patient is being continued on antibiotics vancomycin due to BAL cultures showing MRSA. Laboratory data showed worsening WBC 16.9 today. Hemoglobin 13.3 and platelets 270, sodium 1:30 potassium 3.6 chloride 110 bicarb is 22 BUN 40 and creatinine 0.520 blood sugar 113. 08/14/2023 Patient is drowsy and lethargic. Patient was transferred to bedside recliner. Still confused and getting out of bed. Otherwise patient is on room air. No complaints of chest pain or shortness of breath. Patient does have difficulty swallowing and having very minimal oral input. Patient getting IV hydration with normal saline at 50 mL's per hour. Patient has been afebrile. Cough but unable to bring out sputum.. Otherwise WBC went up to 21.4. Patient is on vancomycin. Bronchial cultures positive for MRSA. Other laboratory data reviewed. 08/15/2023 Patient is in the MICU. Seems to be more awake and able to communicate slowly. Patient still very weak and slid to the floor on the side of the bathroom door this morning. No complaints of head injury. No complaints of back pain currently. Patient has been afebrile. No nausea or vomiting. No headache. No chest pain. No complaints of worsening shortness of breath. Patient is on room air. Patient was also started on oral diet. Otherwise leukocytosis trending up with WBC 22.8 today. Hemoglobin 12.7 and platelets 85 potassium 3.3 chloride 109 bicarb is 20 BUN 11 creatinine 0.52 and procalcitonin level 0.22 Patient is being continued on vancomycin and cefepime and Diflucan is being added by ID. 08/16/2023 Patient awake at baseline She is still tachypneic especially when talking He is on IV vancomycin for MRSA pneumonia He denies hallucination and his delirium tremens is improving. He remains on IV Ativan as needed for anxiety and withdrawal. Currently improving and he is going to be transferred out of the ICU today to the general medical floor. Sitter at bedside Patient feels depressed but denies suicidal/homicidal ideation Psychiatry already evaluated the patient on admission 08/17. Patient seen and examined. Sitting comfortably in the bed. Sitter at the bedside. Patient is alert and oriented. Denies any auditory or visual reid ucinations. Denies any dizziness. Tolerating diet. 226. Patient seen and examined. Blood work done this morning showed WBC 20.44, hemoglobin 12.2, platelet count 419, sodium 143, potassium 3.6, BUN 5.9, creatinine 0.6. CT chest ordered. Denies any shortness of breath. Currently sitting comfortably in the bed. REVIEW OF SYSTEMS: Denies any chest pain. Denies shortness of breath. Denies nausea, vomiting abdominal pain. PHYSICAL EXAMINATION: GENERAL: The patient is alert and oriented x 3 HEENT: Pupils are round and equally reacting to light. EOMI. No scleral icterus. No conjunctival pallor. Normocephalic, atraumatic. No pharyngeal erythema. No thyromegaly. CARDIOVASCULAR: S1 and S2 present. No murmurs, rubs, or gallops. PULMONARY: Chest is clear to auscultation, no wheezing or crackles. ABDOMEN: Soft, nontender, nondistended, normoactive bowel sounds. No palpable organomegaly. MUSCULOSKELETAL: No joint swelling or deformity. EXTREMITIES: No cyanosis, clubbing, or pedal edema. NEUROLOGICAL: Moving all extremities. Cranial nerves II to 12 intact SKIN: No rashes. Assessment and plan Acute alcohol withdrawal with DTs. Requiring intubation and mechanical ventilator. Extubated on 08/13/2023. Possible MRSA pneumonia with BAL cultures positive for MRSA. Worsening leukocytosis alcohol detox Hypomagnesemia Thrombocytopenia Alcoholic hepatitis Marijuana use admitting to smoking 1 joint daily Chronic and ongoing tobacco dependence of up to 2 packs/day Monitor vital signs Monitor CBC Monitor CMP Continue telemetry monitoring Continue CIWA protocol Continue IV vancomycin and Diflucan Continue Lopressor 25 mg twice a day Continue thiamine and folic acid Monitor LFTs ID following Pulmonology following Labs and medication were reviewed.. Continue same treatment. Continue with symptomatic treatment. Resume home medication. Monitor labs and vitals. DVT a nd GI prophylaxis. Further recommendations as per clinical course of the patient Dictation was produced using [employer] dictation software. please excuse any grammatical, word or spelling errors. Objective - Vital Signs Vital signs: Vital Signs Temp 97.6 F 08/18/23 07:38 Pulse 90 08/18/23 07:38 Resp 18 08/18/23 07:38 BP 154/102 08/18/23 07:38 Pulse Ox 95 08/18/23 07:38 FiO2 50 08/13/23 10:38 Intake & Output 08/17/23 08/18/23 08/18/23 18:59 06:59 18:59 Intake Total 2080 Output Total 950 400 175 Balance -950 1680 -175 Intake: Intake, IV Titration 1000 Amount Vancomycin 1,750 mg In 1000 Sodium Chloride 0.9% 500 ml 500 ml @ 167 mls/hr IVPB Q8H [facility] Rx#: [id number] Oral 1080 Output: Urine 950 400 175 Other: Voiding Method Toilet Toilet Urinal Urinal # Voids 6 5 1 ABP, PAP, CO, CI - Last Documented Arterial Blood Pressure 209/100 - Labs CBC & Chem 7: 08/18/23 06:00 08/18/23 06:00 Labs: Abnormal Lab Results - Last 24 Hours (Table) 08/18/23 08/18/23 Range/Units 06:00 06:00 WBC 20.44 H (4.50-10.00) X 10*3/uL RBC 3.66 L (4.40-5.60) X 10*6/uL Hgb 12.2 L (13.0-17.0) g/dL Hct 36.3 L (39.6-50.0) % MCV 99.2 H (80.0-97.0) FL MCH 33.3 H (27.0-32.0) pg Immature Gran # 0.13 H (0.00-0.04) X 10*3/uL Neutrophils # 14.56 H (1.80-7.70) X 10*3/uL Monocytes # 1.89 H (0.20-1.00) X 10*3/uL Eosinophils # 0.56 H (0.04-0.35) X 10*3/uL Basophils # 0.15 H (0.00-0.10) X 10*3/uL Anion Gap 12.30 H (4.00-12.00) mmol/L BUN 5.9 L (9.0-27.0) mg/dL BUN/Creatinine Ratio 9.83 L (12.00-20.00) Ratio C-Reactive Protein 8.10 H (0.00-0.80) mg/dL Total Protein 5.2 L (6.2-8.2) g/dL Albumin 2.9 L (3.8-4.9) g/dL Albumin/Globulin Ratio 1.26 L (1.60-3.17) Ratio Microbiology - Last 24 Hours (Table) 08/16/23 06:30 Gram Stain - Preliminary Sputum Sputum Culture - Preliminary Presumptive Staph aureus
--- NOTE | 2023-08-18 13:54 | CT ---
EXAMINATION TYPE: CT chest w con DATE OF EXAM: 08/18/2023 COMPARISON: Radiograph 08/16/2023 HISTORY: 43-year-old male pneumonia, cough, assess for empyema TECHNIQUE: Contiguous axial scanning of the chest after the administration of 100 mL of Isovue 370. Coronal/sagittal reconstructions performed. CT DLP: 471mGycm. Automatic exposure control utilized for a dose reduction. FINDINGS: The heart is normal size with trace anterior pericardial fluid. Aorta normal caliber with conventional arch vessel branching anatomy. Scattered nonenlarged mediastinal and right hilar lymph nodes. No thoracic adenopathy by size criteri a. There are trace bilateral pleural effusions. Some mild patchy atelectasis at the posterior lung bases on both sides. Mild emphysematous change. No discrete empyema. Tiny hiatal hernia. In the visualized upper abdomen, there is prominent peripancreatic edema and a fluid collection super ior and posterior to the body of the pancreas measuring 6.0 x 1.9 cm. Moderate inflammatory edema and fat stranding tracks down the visualized left retroperitoneum. Partially visualized cholelithiasis u p to 7 mm. Portal venous system is patent. Bones: Moderate degenerative disc disease T9-T10. IMPRESSION: 1. In the visualized upper abdomen, there are changes of acute interstitial pancreatitis with moderat e surrounding inflammation. There is a 6.0 x 1.9 cm peripancreatic fluid collection/early pseudocyst along the posterior superior aspect of the pancreatic body. 2. Trace bilateral pleural effusions with some adjacent mild atelectasis. No discrete empyema. 3. Background COPD with mild emphysema.
[2023-08-18 14:09] VITALS: BMI 24.0
--- NOTE | 2023-08-18 15:45 | P.PN ---
Subjective Progress Note Date: 08/18/23 This is a 43-year-old male patient who resides in the [facility] who had recently been admitted to [facility] for alcohol withdrawal. He was admitting to drinking 1 L of tequila per day. He smokes 2 packs of cigarettes per day and 1 marijuana joint per day. States his last drink was at noon on the 12th prior to his admission to [facility]. He was sent here today by EMS for acute withdrawal syndromedelirium. Chest x-ray revealed no acute pulmonary process. EKG revealed sinus tachycardia. White count 8.3. Hemoglobin 16.3. Platelets 70,000. Sodium 137. Potassium 4.2. Bicarb 29. BUN 22. Creatinine 1.12. AST 164. ALT 140. Lipase 146. Viral screen negative. Since his arrival he has required 10 mg of Ativan. He is still quite restless. Precedex drip was ordered and he will be admitted to the intensive care unit. He is seen today in consultation in the emergency department. He has restless. Walking around in his room. Security is at the bedside. Precedex had not been started yet. He is maintaining O2 saturations in the 90s on room air. He is tachycardic in the 110s, 120s. Blood pressure stable. Afebrile. Patient was reevaluated today on 08/07/2023, patient developed worsening picture of alcohol withdrawal and acute delirium tremens, requiring intubation and mechanical ventilation. He is now on assist-control 18 tidal volume 450 FiO2 35% and PEEP of 5, ABG showed a pO2 of 148 pCO2 34 pH of 7.44 hence his rate was cut down to 16 and his tidal volume kept the same FiO2 down to 35% patient is still requiring significant amount of sedation including propofol at 60 mcg/kg/min, Versed was added this morning mostly because of persistent agitation in spite of propofol on board. CBC is relatively normal basic metabolic profile is normal except for low potassium of 3.3 chest x-ray is showing mostly left basilar atelectasis. Doubt pneumonia. Screening for influenza A B, RSV and COVID-19 all negative patient remains on the CIWA protocol, and spite of being on Precedex yesterday, patient continued to develop alcohol withdrawal requiring intubation mechanical ventilation. Patient was reevaluated today on 08/08/2023, patient remains in the ICU, intubated and mechanically ventilated. Patient is on assist-control rate of 16 tidal volume 450 FiO2 35% PEEP of 5. Patient is still requiring significant amount of sedation to keep him calm, otherwise he gets agitated, restless, and becomes asynchronous with mechanical ventilation. He is now on propofol at 50 mcg/kg/min and Versed at 15 mg/h. IV fluid is running at 2.9 normal saline 75 cc/h. Chest x-ray is showing more atelectasis, and more pleural effusions, hence I am cutting down his IV fluid to KVO and I am giving him Lasix 40 mg IV push x 1. In addition considering the patient is showing a low-grade temp with a temp of 99 today, I am recommending Zosyn to be started empirically. Patient is a good set up for aspiration pneumonia. And the findings of atel ectasis/infiltrates are noted in both lungs today. Left more so than right. Patient is receiving enteral feeding. He is also on GI DVT prophylaxis. His WBC count is 9.9 hemoglobin is 15 electrolytes are normal BUN is normal creatinine is normal, liver enzymes are improving steadily Patient was reevaluated today on 08/09/2023, patient remains in the ICU intubated and mechanically ventilated on assist-control rate of 16 tidal volume 450 FiO2 35% PEEP of 5 ABG showed a pO2 of 82 pCO2 36 pH of 7.43. Patient continues to require significant amount of sedation including propofol at 50 mcg/kg/min Versed at 15 mg/h. Patient is also 1.9 normal saline at 75 cc/h and receiving vital HP. Empirically the patient is on Zosyn, endotracheal tube seems to be high, and this will be advanced down 3 cm today. Chest x-ray continues to show some atelectasis and opacities at the bases especially at the left base, patient is empirically on Zosyn. WBC count is 12.8 hemoglobin 15.3. Basic metabolic pr ofile is normal bicarb is 21 renal profile is normal Progress note dated August 11, 2023. The patient was seen today in room 266. The patient continues on mechanical ventilation. He is on volume assist-control, rate 16, tidal volume 500, FiO2 50%, PEEP of 5. Blood gases show pO2 79, pCO2 37, pH is 7.45. The patient continues on propofol at 50 mcg/kg/min, Versed at 50 mg an hour, and saline at 50 cc an hour. The patient is receiving vital high-protein at 53 cc an hour. The patient was admitted to the hospital on August 06, and was intubated the following day on the . Today, we will attempt a daily interruption of sedation. In addition, the patient will have some Haldol, and Seroquel, added to his regimen, for additional sedation. White count 11.4, hemoglobin 13.5, hematocrit 41, with a normal platelet count. Sodium 138, potassium 3.9, chlorides 111, CO2 23, BUN 12, creatinine 0.57. Glucose is 114. Magnesium 1.9. Progress note dated August 12, 2023. 43-year-old male seen today in room 266. The patient remains on the mechanical ventilator. He is on volume assist-control, rate 16, tidal volume 500, FiO2 50%, PEEP of 5. Blood gases show pO2 of 76, pCO2 34, pH is 7.47. This blood gas is consistent with a mild respiratory alkalosis. The patient is getting propofol at 10 mcg/kg/min, saline at 50 cc an hour, and vital high-protein at 59 cc an hour. That is goal. The patient continues on Zosyn, and vancomycin. The BAL sampling, did reveal evidence of methicillin-resistant Staph aureus, hence the vancomycin. White count 13.6, hemoglobin 13.4, hematocrit 40.1, platelet count 250,000. Sodium 139, potassium 4, chlorides 114, CO2 24, BUN 14, creatinine 0.61. Calcium 8.6. Magnesium 2.1. BAL sampling from August 10, was positive for methicillin-resistant Staph aureus. This x-ray shows bilateral effusions, which are relatively small, and bibasilar atelectasis. Progress note dated August 13, 2023. 43-year-old male seen today in room 266. Patient remains on mechanical ventilator. Ventilator settings include volume assist-control, rate 16, tidal volume 500, FiO2 50%, PEEP of 5. Blood gases show pO2 of 83, pCO2 33, and a pH of 7.48. The patient is getting propofol at 20 mcg/kg/min, saline at 50 cc an hour, and tube feedings with vital HP at goal, which is 59 cc an hour. Today, we will attempt another daily interruption of sedation, and potentially a spontaneous breathing trial. I did alert the nurse to the effect, that should he not progress, he may require tracheostomy and PEG tube placement by the end of the week. Current labs include a white count 16.9, hemoglobin 13.3, hematocrit 39.7, platelet count 270,000. Sodium 139, potassium 3.6, chlorides 110, CO2 22, BUN 14, creatinine 0.52. Glucose is 124. Calcium 8.7. Bronchial washings show evidence of methicillin-resistant Staph aureus. This was done on August 10. Chest x-ray revealed some mild interstitial edema, and small effusions or basilar atelectasis. Progress note dated August 14, 2023. 43-year-old male seen today in room 266. Yesterday, because of good weaning parameters, blood gas, and comfortably, the patient was successfully extubated. This occurred on August 13. The patient is currently in the ICU, room 266. The patient is on room air. The patient is getting saline at 50 cc an hour. The patient has had an uneventful period of time, postextubation. No new labs today. The nurses are looking into possible transfer, the [facility]. Progress note dated August 15, 2023. 43-year-old male seen in room 266. Currently, the patient is doing relatively well. The patient is on room air. He is receiving saline at 50 cc an hour. The patient is stable for transfer, out of the intensive care unit, in my opinion. White count 22.8, hemoglobin 12.7, hematocrit 36.7, with a normal platelet count. Sodium 139, potassium 3.3, chlorides 109, CO2 20, BUN 11, creatinine 0.52. Procalcitonin level was 0.22. Bronchoscopy, from August 10, was positive for methicillin-resistant Staph aureus. Patient continues on cefepime and vancomycin. Chest x-ray shows patchy density at the left lung base. There is also some bibasilar atelectasis. Progress note dated August 16, 2023. The patient is seen today in room 266. He is on room air. He is getting saline at 50 cc an hour. He has no new complaints today. According to the nurse, he had an uneventful night. His IV can be discontinued. He is eating and drinking appropriately. Labs today include a white count 20.7, hemoglobin 12.8, hematocrit 37.4, and platelet count which is normal. Sodium 141, potassium 3.3, chlorides 110, CO2 20, BUN 8, creatinine 0.51. BAL sampling from August 10, was positive for methicillin-resistant Staph aureus. Chest x-ray today shows some left basilar infiltrates or atelectasis. The patient is seen today August 17, 2023 in follow-up on the regular medical floor. He was transferred out of the intensive care unit yesterday. He is awake and alert in no acute distress. He is maintaining O2 saturations in the 90s on room air. No IV fluids. He is still confused at times. gizzard puller remains at the bedside. Bronchial wash cultures were positive for MRSA. Blood cultures revealed no growth. Creatinine 0.57. GFR greater than 90. He is continued on vancomycin and Diflucan. He is more calm and cooperative on Seroquel. NicoDerm patch in place. On today's evaluation of 08/18/2023, the patient is being seen on the medical floor. The patient is going to be transferred out of the intensive care unit. He is doing well. No specific complaints. Mentation is adequate without any significant agitation or tremors. No significant cough or sputum production. The sputum is positive for staph aureus and the patient is post bronchoscopy that showed MRSA in the sputum. Based on that, a CAT scan of the chest was done todayThat showed changes of acute pancreatitis with surrounding inflammation. There was also another 6 cm peripancreatic fluid collection with early pseudocyst formation along the posterior superior aspect of the pancreatic body. Trace bilateral pleural effusions and atelectatic changes lung bases. No empyema. The patient has some background emphysema. The patient remains on vancomycin. In regards to the blood work, the white cell count of 20.4 with a hemoglobin 12.2, sodium is at 143, BUN is at 6 with a creatinine of 0.6 and a potassium level is at 3.6. Note that the blood culture was essentially negative for Staph aureus. The patient denies having any shortness of breath he is currently on room air oxygen. The white cell count remains elevated. No reported nausea or vomiting. No abdominal pain and the patient continues to be on vancomycin. Objective - Vital Signs Vital signs: Vital Signs Temp 97.6 F 08/18/23 07:38 Pulse 90 08/18/23 07:38 Resp 18 08/18/23 07:38 BP 154/102 08/18/23 07:38 Pulse Ox 95 08/18/23 07:38 FiO2 50 08/13/23 10:38 Intake & Output 08/17/23 08/18/23 08/18/23 18:59 06:59 18:59 Intake Total 2080 Output Total 950 400 175 Balance -950 1680 -175 Intake: Intake, IV Titration 1000 Amount Vancomycin 1,750 mg In 1000 Sodium Chloride 0.9% 500 ml 500 ml @ 167 mls/hr IVPB Q8H [facility] Rx#: [id number] Oral 1080 Output: Urine 950 400 175 Other: Voiding Method Toilet Toilet Urinal Urinal # Voids 6 5 1 ABP, PAP, CO, CI - Last Documented Arterial Blood Pressure 209/100 - Exam GENERAL EXAM: Alert, currently calm and cooperative 43-year-old male, on room air, comfortable in no apparent distress. HEAD: Normocephalic. EYES: Normal reaction of pupils, equal size. NOSE: Clear with pink turbinates. THROAT: No erythema or exudates. NECK: No masses, no JVD. CHEST: No chest wall deformity. LUNGS: Equal air entry with few scattered rhonchi. CVS: S1 and S2 normal with no audible murmur, regular rhythm. ABDOMEN: No hepatosplenomegaly, normal bowel sounds, no guarding or rigidity. SPINE: No scoliosis or deformity SKIN: No rashes CENTRAL NERVOUS SYSTEM: No focal deficits, tone is normal in all 4 extremities. EXTREMITIES: There is no peripheral edema. No clubbing, no cyanosis. Peripheral pulses are intact. - Labs CBC & Chem 7: 08/18/23 06:00 08/18/23 06:00 Labs: Abnormal Lab Results - Last 24 Hours (Table) 08/18/23 08/18/23 Range/Units 06:00 06:00 WBC 20.44 H (4.50-10.00) X 10*3/uL RBC 3.66 L (4.40-5.60) X 10*6/uL Hgb 12.2 L (13.0-17.0) g/dL Hct 36.3 L (39.6-50.0) % MCV 99.2 H (80.0-97.0) FL MCH 33.3 H (27.0-32.0) pg Immature Gran # 0.13 H (0.00-0.04) X 10*3/uL Neutrophils # 14.56 H (1.80-7.70) X 10*3/uL Monocytes # 1.89 H (0.20-1.00) X 10*3/uL Eosinophils # 0.56 H (0.04-0.35) X 10*3/uL Basophils # 0.15 H (0.00-0.10) X 10*3/uL Anion Gap 12.30 H (4.00-12.00) mmol/L BUN 5.9 L (9.0-27.0) mg/dL BUN/Creatinine Ratio 9.83 L (12.00-20.00) Ratio C-Reactive Protein 8.10 H (0.00-0.80) mg/dL Total Protein 5.2 L (6.2-8.2) g/dL Albumin 2.9 L (3.8-4.9) g/dL Albumin/Globulin Ratio 1.26 L (1.60-3.17) Ratio Microbiology - Last 24 Hours (Table) 08/16/23 06:30 Gram Stain - Preliminary Sputum Sputum Culture - Preliminary Presumptive Staph aureus Assessment and Plan Plan: Acute alcohol withdrawal syndrome, admitted to [facility] on 06/03/2024, brought here to the emergency room 06/05/2024 for delirium. He required mechanical he required intubation mechanical ventilatory support from August 07 through August 13, 2023 MRSA in the sputum without evidence of any pneumonia based on CAT scan findings. Patient remains on IV vancomycin Pancreatitis, chronic likely with pseudocyst formation, pancreatic enzymes are nonelevated Acute delirium tremens, recovered Alcohol abuse admitting to 1 L of tequila daily Alcoholic liver disease secondary to above Thrombocytopenia secondary to above Marijuana use admitting to smoking 1 joint daily Chronic and ongoing tobacco dependence of up to 2 packs/day Plan: Overall pulmonary status is stable CAT scan of the chest was reviewed Currently stable and on room air Continued on vancomycin Continued on the [facility] protocol Monitor the white cell count Slightly tachycardic. Oxygenation is normal and the patient's pulse ox 91% on room air oxygen The patient is planning to return to [facility] postdischarge This patient was seen independently by the pulmonary nurse practitioner addressing pulmonary issues
[2023-08-19 11:25] LABS: Basophils # (A) 0.1 k/uL (0-0.2); Basophils % (A) 1 %; Eosinophils # (A) 0.5 k/uL (0-0.7); Eosinophils % (A) 2 %; HCT 41.7 % (39.0-53.0); HGB 13.9 gm/dL (13.0-17.5); Lymphocytes # (A) 2.5 k/uL (1.0-4.8); Lymphocytes % (A) 11 %; MCH 33.9 pg (25.0-35.0); MCHC 33.4 g/dL (31.0-37.0); MCV 101.4 fL (80.0-100.0); Macrocytosis Slight; Mean Platelet Volume 8.9; Monocytes # (A) 1.1 k/uL (0-1.0); Monocytes % (A) 5 %; Neutrophils # (A) 16.9 k/uL (1.3-7.7); Neutrophils % (A) 78 %; Platelet Count 532 k/uL (150-450); RBC 4.11 m/uL (4.30-5.90); RDW 13.9 % (11.5-15.5); WBC 21.6 k/uL (3.8-10.6)
[2023-08-19 11:38] LABS: ALT 33 U/L (4-49); AST 34 U/L (17-59); African American GFR (CKD) >90 (>60 ml/min/1.73 sqM); Albumin 3.3 g/dL (3.5-5.0); Albumin/Globulin Ratio 1.1; Alkaline Phosphatase 67 U/L (38-126); Anion Gap 6 mmol/L; Blood Urea Nitrogen 5 mg/dL (9-20); Calcium 9.8 mg/dL (8.4-10.2); Carbon Dioxide 27 mmol/L (22-30); Chloride 111 mmol/L (98-107); Globulin 3.1 g/dL; Glucose 97 mg/dL (74-99); Non-African American GFR(CKD) >90 (>60 ml/min/1.73 sqM); Potassium 4.5 mmol/L (3.5-5.1); Sodium 144 mmol/L (137-145); Total Bilirubin 0.5 mg/dL (0.2-1.3); Total Protein 6.4 g/dL (6.3-8.2)
[2023-08-19 11:55] LABS: Lipase 3840 U/L (23-300)
[2023-08-19] MEDS: VANCOMYCIN TROUGH DUE 1 EACH MISC MISCELLANE ONE (12:30)
--- NOTE | 2023-08-19 13:30 | P.DS ---
Providers Date of admission: 08/06/23 09:48 Expected date of discharge: 08/19/23 Attending physician: Edna Mensah MD Consults: 08/06/23 12:06 Consult Physician Routine Consulting Provider: Romel Mejia Consult Reason/Comments: Alcohol abuse, severe depression Do you want consulting provider notified?: Yes 08/06/23 12:28 Consult Physician Urgent Consulting Provider: Jonas Perez Consult Reason/Comments: etoh w/d, needs ICU management Do you want consulting provider notified?: Yes 08/11/23 12:22 Consult Physician Routine Consulting Provider: Adry Chaidez Consult Reason/Comments: Fevers, Do you want consulting provider notified?: Yes 08/19/23 10:07 Consult Physician Urgent Consulting Provider: Nenita Mahan Consult Reason/Comments: Abnormal CT abdomen, possible pancreatitis with pseudocyst Do you want consulting provider notified?: Yes Primary care physician: Stated None Hospital Course: Discharge diagnoses; Acute alcohol withdrawal with DTs. Requiring intubation and mechanical ventilator. Extubated on 08/13/2023. Possible MRSA pneumonia with BAL cultures positive for MRSA. Pancreatic pseudocyst Worsening leukocytosis alcohol detox Hypomagnesemia Thrombocytopenia Alcoholic hepatitis Marijuana use admitting to smoking 1 joint daily Chronic and ongoing tobacco dependence of up to 2 packs/day Hospital course; patient is of 43-year-old gentleman with past medical significant for alcohol abuse who presented to the ER for alcohol detox. Patient was sent to the ER from [place] where he was admitted on Friday for alcohol detox. Patient ad mits to drinking 1 L of alcohol daily. Denies any use of recreational drugs. Patient stated that he wanted to quit drinking as it was causing problems for his family. Denies any auditory or visualizations. There is no complaint of suicidal thoughts. Patient was being treated with oral Ativan at [facility] but patient was getting restless and tachycardic. Patient was also complaining of increased shakiness. There was complaint of nausea and vomiting. Denies abdominal pain. Denies any chest pain or shortness of breath. Initial lab work done in the ER showed WBC 8.3, hemoglobin 13.3, platelet count 70, sodium 130 potassium 4.2, BUN 22, creatinine 1.12, magnesium 1.4 AST 164, ALT 140 Influenza A not detected Influenza B not detected RSV not detected COVID-19 not detected UA negative for infection EKG done in the ER showed heart rate of 120 , no ST segment elevation or depression seen, no T-wave inversions seen. Chest x-ray done in the ER no acute cardiopulmonary process Patient admitted to internal medicine service 08/07. Patient seen examined. Patient's CIWA scores were high, was started on Precedex drip yesterday afternoon and was transferred to ICU. Patient continued to be agitated, was intubated and placed on propofol and Versed. Currently on vent. 08/08. Patient seen and examined. Continues to be sedated on propofol and Versed. Patient having low-grade fevers, started on IV Zosyn. 08/09. Patient seen and examined. Blood work done this morning showed WBC 12.8, hemoglobin 15.3, platelet count 82 sodium 136, potassium 3.3, BUN 12, creatinine 0.64. Patient afebrile overnight. Still tachycardic 08/10. Patient seen and examined. Lab work done this morning showed WBC 12.3, hemoglobin 14.6, platelet count 99, sodium 110, potassium 3.8, BUN 13, creatinine 0.59,. Continues to be intubated and sedated 08/11. Patient seen examined. Labs done showed WBC 9.4, hemoglobin 13.5, platelet count 152, sodium 138, potassium 3.9, BUN 12, creatinine 0.57. Patient underwent bronchoscopy yesterday. Critical care added Haldol and Seroquel, want to wean down on sedation. 08/12/2023 Patient is in the MICU. Currently intubated and on mechanical ventilator. Se dation was off briefly. BAL culture is growing MRSA status post bronchoscopy on 08/10/2023. Currently on vancomycin. Patient is on IV hydration with normal saline at 50 mL's per hour. On alcohol withdrawal protocol. Chest x-ray showed ongoing small bilateral pleural effusions with adjacent atelectasis and consolidation. 08/13/2023 Patient is extubated today. Currently in the MICU. Drowsy and lethargic. Requiring 2 L oxygen by nasal cannula. Afebrile. Patient is being continued on antibiotics vancomycin due to BAL cultures showing MRSA. Laboratory data showed worsening WBC 16.9 today. Hemoglobin 13.3 and platelets 270, sodium 1:30 potassium 3.6 chloride 110 bicarb is 22 BUN 40 and creatinine 0.520 blood sugar 113. 08/14/2023 Patient is drowsy and lethargic. Patient was transferred to bedside recliner. Still confused and getting out of bed. Otherwise patient is on room air. No complaints of chest pain or shortness of breath. Patient does have difficulty swallowing and having very minimal oral input. Patient getting IV hydration with normal saline at 50 mL's per hour. Patient has been afebrile. Cough but unable to bring out sputum.. Otherwise WBC went up to 21.4. Patient is on vancomycin. Bronchial cultures positive for MRSA. Other laboratory data reviewed. 08/15/2023 Patient is in the MICU. Seems to be more awake and able to communicate slowly. Patient still very weak and slid to the floor on the side of the bathroom door this morning. No complaints of head injury. No complaints of back pain currently. Patient has been afebrile. No nausea or vomiting. No headache. No chest pain. No complaints of worsening shortness of breath. Patient is on room air. Patient was also started on oral diet. Otherwise leukocytosis trending up with WBC 22.8 today. Hemoglobin 12.7 and platelets 85 potassium 3.3 chloride 109 bicarb is 20 BUN 11 creatinine 0.52 and procalcitonin level 0.22 Patient is being continued on vancomycin and cefepime and Diflucan is being added by ID. 08/16/2023 Patient awake at baseline She is still tachypneic especially when talking He is on IV vancomycin for MRSA pneumonia He denies hallucination and his delirium tremens is improving. He remains on IV Ativan as needed for anxiety and withdrawal. Currently improving and he is going to be transferred out of the ICU today to the general medical floor. Sitter at bedside Patient feels depressed but denies suicidal/homicidal ideation Psychiatry already evaluated the patient on admission 08/17. Patient seen and examined. Sitting comfortably in the bed. Sitter at the bedside. Patient is alert and oriented. Denies any auditory or visual hallucinations. Denies any dizziness. Tolerating diet. 226. Patient seen and examined. Blood work done this morning showed WBC 20.44, hemoglobin 12.2, platelet count 419, sodium 143, potassium 3.6, BUN 5.9, creatinine 0.6. CT chest ordered. Denies any shortness of breath. Currently sitting comfortably in the bed. 08/19. Patient seen and examined. CT chest done showed changes of acute interstitial pancreatitis with surrounding inflammation, 6 x 1.9 cm peripancreatic fluid seen. Currently patient is having no abdominal pain, most likely patient has a pancreatic pseudocyst which is not infectious at this time. Discussed with ID, they recommended discharging patient on oral Bactrim for 1 week. PHYSICAL EXAMINATION: GENERAL: The patient is alert and oriented x 3 HEENT: Pupils are round and equally reacting to light. EOMI. No scleral icterus. No conjunctival pallor. Normocephalic, atraumatic. No pharyngeal erythema. No thyromegaly. CARDIOVASCULAR: S1 and S2 present. No murmurs, rubs, or gallops. PULMONARY: Chest is clear to auscultation, no wheezing or crackles. ABDOMEN: Soft, nontender, nondistended, normoactive bowel sounds. No palpable organomegaly. MUSCULOSKELETAL: No joint swelling or deformity. EXTREMITIES: No cyanosis, clubbing, or pedal edema. NEUROLOGICAL: Moving all extremities. Cranial nerves II to 12 intact SKIN: No rashes. Dictation was produced using [employer] dictation software. please excuse any grammatical, word or spelling errors. Patient Condition at Discharge: Fair Plan - Discharge Summary New Discharge Prescriptions: New Sulfamethox-Tmp 800-160Mg [Bactrim DS 800-160 mg] 1 tab PO Q12HR 7 Days #14 tab Pantoprazole [Protonix] 40 mg PO AC-BRKFST #30 tab Thiamine [Vitamin B-1] 100 mg PO DAILY@1200 #30 tab Metoprolol Tartrate [Lopressor] 25 mg PO BID 30 Days #60 tab QUEtiapine [SEROquel] 100 mg PO BID #30 tab Continue LORazepam [Ativan] 1 - 2 mg PO Q4H PRN PRN Reason: Alcohol Withdrawal Discharge Medication List LORazepam [Ativan] 1 - 2 mg PO Q4H PRN 08/06/23 [History] Metoprolol Tartrate [Lopressor] 25 mg PO BID 30 Days #60 tab 08/19/23 [Rx] Pantoprazole [Protonix] 40 mg PO AC-BRKFST #30 tab 08/19/23 [Rx] QUEtiapine [SEROquel] 100 mg PO BID #30 tab 08/19/23 [Rx] Sulfamethox-Tmp 800-160Mg [Bactrim DS 800-160 mg] 1 tab PO Q12HR 7 Days #14 tab 08/19/23 [Rx] Thiamine [Vitamin B-1] 100 mg PO DAILY@1200 #30 tab 08/19/23 [Rx] Follow up Appointment(s)/Referral(s): None,Stated [Primary Care Provider] - 1-2 days Nenita Mahan MD [STAFF PHYSICIAN] - 1 Week Patient Instructions/Handouts: MRSA (Methicillin-Resistant Staphylococcus Aureus) (DC) Discharge Disposition: HOME SELF-CARE
[2023-08-19 13:31] VITALS: BP 118/83; PULSE 80; RESP 18; TEMP 98.4
[2023-08-19] MEDS: VANCOMYCIN 1,500 MG in SODIUM CHLORIDE 0.9% 500 ML 500 ML IVPB SCH (13:32)
--- NOTE | 2023-08-19 14:07 | P.CONS ---
History of Present Illness - Reason for Consult Consult date: 08/19/[address], pancreatitis Requesting physician: Madhu Mcdaniel - Chief Complaint alcohol withdrawal - History of Present Illness This is a 43-year-old male with a history of alcoholism that has been drinking a liter of liquor daily who has been sober for last 15 days. Patient was at [facility] for rehab. He came in by EMS on 08/06/2023 for alcohol withdrawal symptoms and he was admitted to the ICU. Patient had acute hypoxic respiratory failure left lower lobe pneumonia with excessive purulent secretions and underwent bronchoscopy. Sputum positive for MRSA. He had a chest CT to evaluate lungs. It was noted that he had changes of acute interstitial pancreatitis with moderate surrounding inflammation. 6.0 x 1.9 cm. Pancreatic fluid collection/early pseudocyst. Gastroenterology was consulted for pancreatitis. Patient denies any previous history of pancreatitis, he denies any abdominal pain, no nausea or vomiting. Again states that he has been drinking a liter of liquor for the last 1 year duration, prior to that he has been a heavy drinker for at least the last 10 years duration. WBC 21 hemoglobin 13.9 hematocrit 41 platelet count 532,000 sodium 144 potassium 4.5 BUN 5 creatinine 0.6 total bilirubin 0.5 AST 34 ALT 33 alkaline phosphatase 67 lipase 3840 Review of Systems REVIEW OF SYSTEMS: CARDIOPULMONARY: No chest pain or shortness of breath. Gastrointestinal: No abdominal pain. No nausea or vomiting. No hematemesis, coffee-ground emesis. No rectal bleeding, or melena. GENITOURINARY: No dysuria or hematuria. MUSCULOSKELETAL: Reports normal range of motion. Joint pain. SKIN: No rashes. No jaundice. ENDOCRINE: No chills, fevers. No excessive weight gain or loss. No polydipsia or polyuria. PSYCHIATRIC: Unremarkable. NEUROLOGY: No change in mental status. Denies dizziness, headache. ENT: Vision unremarkable. CONSTITUTIONAL: No recent weight loss. No fever, chills, night sweats. Past Medical History Past Medical History: No Reported History History of Any Multi-Drug Resistant Organisms: MRSA Year Discovered:: 08/10/23 MDRO Source:: Bronch wash Past Surgical History: Appendectomy Past Psychological History: No Psychological Hx Reported Smoking Status: Former smoker Past Alcohol Use History: Abuse Past Drug Use History: Marijuana Medications and Allergies Home Medications Medication Instructions Recorded Confirmed Type LORazepam [Ativan] 1 - 2 mg PO Q4H PRN 08/06/23 08/06/23 History Metoprolol Tartrate [Lopressor] 25 mg PO BID 30 Days #60 tab 08/19/23 Rx Pantoprazole [Protonix] 40 mg PO AC-BRKFST #30 tab 08/19/23 Rx QUEtiapine [SEROquel] 100 mg PO BID #30 tab 08/19/23 Rx Sulfamethox-Tmp 800-160Mg [Bactrim 1 tab PO Q12HR 7 Days #14 tab 08/19/23 Rx DS 800-160 mg] Thiamine [Vitamin B-1] 100 mg PO DAILY@1200 #30 tab 08/19/23 Rx Allergies Allergy/AdvReac Type Severity Reaction Status Date / Time No Known Allergies Allergy Verified 08/06/23 10:20 Physical Exam Vitals: Vital Signs Temp Pulse Resp BP Pulse Ox 08/19/23 07:50 97.9 F 76 16 140/80 95 08/19/23 02:00 98 F 87 16 127/84 98 08/18/23 19:15 97.6 F 90 16 131/86 97 08/18/23 12:11 97.9 F 95 17 108/69 97 Intake and Output 08/18/23 08/19/23 08/19/23 22:59 06:59 14:59 Intake Total 1620 Output Total 200 Balance 1620 -200 Intake: Oral 1620 Output: Urine 200 Other: Voiding Method Toilet Toilet Urinal Urinal # Voids 3 1 General appearance: The patient is alert, oriented, appears in no acute distress. HET: Head is normocephalic and atraumatic. Conjunctiva pink. Sclera anicteric. Neck: Supple without lymphadenopathy. Trachea midline. Heart: Regular. Lungs: Equal expansion, normal respiratory effort. Abdomen: Soft, nontender, nondistended with bowel sounds. No guarding or rigidity. Skin: No rashes. No jaundice. Extremities: Normal skin color and turgor. No pedal edema. Neurological: No focal deficits. Alert and oriented x3. Results CBC & Chem 7: 08/19/23 10:56 08/19/23 10:56 Labs: Microbiology - Last 24 Hours (Table) 08/10/23 09:30 Fungal Culture - Preliminary Bronchoalviolar Lavage - Left 08/10/23 09:30 Acid Fast Bacilli Smear - Preliminary Bronchoalviolar Lavage - Left Acid Fast Bacilli Culture - Preliminary 08/16/23 06:30 Gram Stain - Preliminary Sputum Sputum Culture - Preliminary Presumptive Staph aureus Comments: chest CT with contrast: In the visualized upper abdomen there are changes of acute interstitial pancreatitis with moderate surrounding inflammation. 6.0 x 1.9 cm. Pancreatic fluid collection/early pseudocyst along the posterior superior aspect of the pancreatic body. Trace bilateral pleural effusions with some adjacent mild atelectasis. No discrete empyema. Background COPD with mild emphysema. Assessment and Plan (1) Acute pancreatitis Narrative/Plan: 43-year-old male who presented to the emergency department for alcohol withdrawal syndrome about [address] had a [address] of the chest to evaluate his pneumonia and it was noted that he had acute inflammation around the pancreas with pancreatic pseudocyst. Patient has no prior knowledge of pancreatitis. He has asymptomatic alcoholic pancreatitis uncomplicated. Does have pseudocyst present, he will need follow-up CT abdomen pelvis in 3 months. Recommend he has a follow-up with autos disassembler in his area. Patient verbalizes unders tanding. Also discussed importance of no further alcohol use. Current Visit: Yes Status: Acute Code(s): K85.90 - ACUTE PANCREATITIS WITHOUT NECROSIS OR INFECTION, UNSP SNOMED Code(s): 275692545 Plan: 1. Continue symptomatic and supportive care 2. Lipase ordered 3. No further workup indicated, asymptomatic uncomplicated acute alcohol pancreatitis with pseudocyst 4. Discussed importance of alcohol abstinence with patient 5. Patient instructed to follow-up with his PCP, recommend referral for autos disas[facility]er for follow-up on pancreatitis. Recommend repeat CT scan in 3 months. Thank you for this consultation, patient is cleared from gastroenterology for discharge. Dr. Ede Mahan I agree with the dictator's note, documented as a scribe by Kamilla Lawrence.
--- NOTE | 2023-08-19 14:43 | P.PN ---
Subjective Progress Note Date: 08/19/23 This is a 43-year-old male patient who resides in the [facility] [address] who had recently been admitted to [facility] for alcohol withdrawal. He was admitting to drinking 1 L of tequila per day. He smokes 2 packs of cigarettes per day and 1 marijuana joint per day. States his last drink was at noon on the 12th prior to his admission to [place]. He was sent here today by EMS for acute withdrawal syndromedelirium. Chest x-ray revealed no acute pulmonary process. EKG revealed sinus tachycardia. White count 8.3. Hemoglobin 16.3. Platelets 70,000. Sodium 137. Potassium 4.2. Bicarb 29. BUN 22. Creatinine 1.12. AST 164. ALT 140. Lipase 146. Viral screen negative. Since his arrival he has required 10 mg of Ativan. He is still quite restless. Precedex drip was ordered and he will be admitted to the intensive care unit. He is seen today in consultation in the emergency department. He has restless. Walking around in his room. Security is at the bedside. Precedex had not been started yet. He is maintaining O2 saturations in the 90s on room air. He is tachycardic in the 110s, 120s. Blood pressure stable. Afebrile. Patient was reevaluated today on 08/07/2023, patient developed worsening picture of alcohol withdrawal and acute delirium tremens, requiring intubation and mechanical ventilation. He is now on assist-control 18 tidal volume 450 FiO2 35% and PEEP of 5, ABG showed a pO2 of 148 pCO2 34 pH of 7.44 hence his rate was cut down to 16 and his tidal volume kept the same FiO2 down to 35% patient is still requiring significant amount of sedation including propofol at 60 mcg/kg/min, Versed was added this morning mostly because of persistent agitation in spite of propofol on board. CBC is relatively normal basic metabolic profile is normal except for low potassium of 3.3 chest x-ray is showing mostly left basilar atelectasis. Doubt pneumonia. Screening for influenza A B, RSV and COVID-19 all negative patient remains on the CIWA protocol, and spite of being on Precedex yesterday, patient continued to develop alcohol withdrawal requiring intubation mechanical ventilation. Patient was reevaluated today on 08/08/2023, patient remains in the ICU, intubated and mechanically ventilated. Patient is on assist-control rate of 16 tidal volume 450 FiO2 35% PEEP of 5. Patient is still requiring significant amount of sedation to keep him calm, otherwise he gets agitated, restless, and becomes asynchronous with mechanical ventilation. He is now on propofol at 50 mcg/kg/min and Versed at 15 mg/h. IV fluid is running at 2.9 normal saline 75 cc/h. Chest x-ray is showing more atelectasis, and more pleural effusions, hence I am cutting down his IV fluid to KVO and I am giving him Lasix 40 mg IV push x 1. In addition considering the patient is showing a low-grade temp with a temp of 99 today, I am recommending Zosyn to be started empirically. Patient is a good set up for aspiration pneumonia. And the findings of atel ectasis/infiltrates are noted in both lungs today. Left more so than right. Patient is receiving enteral feeding. He is also on GI DVT prophylaxis. His WBC count is 9.9 hemoglobin is 15 electrolytes are normal BUN is normal creatinine is normal, liver enzymes are improving steadily Patient was reevaluated today on 08/09/2023, patient remains in the ICU intubated and mechanically ventilated on assist-control rate of 16 tidal volume 450 FiO2 35% PEEP of 5 ABG showed a pO2 of 82 pCO2 36 pH of 7.43. Patient continues to require significant amount of sedation including propofol at 50 mcg/kg/min Versed at 15 mg/h. Patient is also 1.9 normal saline at 75 cc/h and receiving vital HP. Empirically the patient is on Zosyn, endotracheal tube seems to be high, and this will be advanced down 3 cm today. Chest x-ray continues to show some atelectasis and opacities at the bases especially at the left base, patient is empirically on Zosyn. WBC count is 12.8 hemoglobin 15.3. Basic metabolic pr ofile is normal bicarb is 21 renal profile is normal Progress note dated August 11, 2023. The patient was seen today in room 266. The patient continues on mechanical ventilation. He is on volume assist-control, rate 16, tidal volume 500, FiO2 50%, PEEP of 5. Blood gases show pO2 79, pCO2 37, pH is 7.45. The patient continues on propofol at 50 mcg/kg/min, Versed at 50 mg an hour, and saline at 50 cc an hour. The patient is receiving vital high-protein at 53 cc an hour. The patient was admitted to the hospital on August 06, and was intubated the following day on the . Today, we will attempt a daily interruption of sedation. In addition, the patient will have some Haldol, and Seroquel, added to his regimen, for additional sedation. White count 11.4, hemoglobin 13.5, hematocrit 41, with a normal platelet count. Sodium 138, potassium 3.9, chlorides 111, CO2 23, BUN 12, creatinine 0.57. Glucose is 114. Magnesium 1.9. Progress note dated August 12, 2023. 43-year-old male seen today in room 266. The patient remains on the mechanical ventilator. He is on volume assist-control, rate 16, tidal volume 500, FiO2 50%, PEEP of 5. Blood gases show pO2 of 76, pCO2 34, pH is 7.47. This blood gas is consistent with a mild respiratory alkalosis. The patient is getting propofol at 10 mcg/kg/min, saline at 50 cc an hour, and vital high-protein at 59 cc an hour. That is goal. The patient continues on Zosyn, and vancomycin. The BAL sampling, did reveal evidence of methicillin-resistant Staph aureus, hence the vancomycin. White count 13.6, hemoglobin 13.4, hematocrit 40.1, platelet count 250,000. Sodium 139, potassium 4, chlorides 114, CO2 24, BUN 14, creatinine 0.61. Calcium 8.6. Magnesium 2.1. BAL sampling from August 10, was positive for methicillin-resistant Staph aureus. This x-ray shows bilateral effusions, which are relatively small, and bibasilar atelectasis. Progress note dated August 13, 2023. 43-year-old male seen today in room 266. Patient remains on mechanical ventilator. Ventilator settings include volume assist-control, rate 16, tidal volume 500, FiO2 50%, PEEP of 5. Blood gases show pO2 of 83, pCO2 33, and a pH of 7.48. The patient is getting propofol at 20 mcg/kg/min, saline at 50 cc an hour, and tube feedings with vital HP at goal, which is 59 cc an hour. Today, we will attempt another daily interruption of sedation, and potentially a spontaneous breathing trial. I did alert the nurse to the effect, that should he not progress, he may require tracheostomy and PEG tube placement by the end of the week. Current labs include a white count 16.9, hemoglobin 13.3, hematocrit 39.7, platelet count 270,000. Sodium 139, potassium 3.6, chlorides 110, CO2 22, BUN 14, creatinine 0.52. Glucose is 124. Calcium 8.7. Bronchial washings show evidence of methicillin-resistant Staph aureus. This was done on August 10. Chest x-ray revealed some mild interstitial edema, and small effusions or basilar atelectasis. Progress note dated August 14, 2023. 43-year-old male seen today in room 266. Yesterday, because of good weaning parameters, blood gas, and comfortably, the patient was successfully extubated. This occurred on August 13. The patient is currently in the ICU, room 266. The patient is on room air. The patient is getting saline at 50 cc an hour. The patient has had an uneventful period of time, postextubation. No new labs today. The nurses are looking into possible transfer, the [facility]. Progress note dated August 15, 2023. 43-year-old male seen in room 266. Currently, the patient is doing relatively well. The patient is on room air. He is receiving saline at 50 cc an hour. The patient is stable for transfer, out of the intensive care unit, in my opinion. White count 22.8, hemoglobin 12.7, hematocrit 36.7, with a normal platelet count. Sodium 139, potassium 3.3, chlorides 109, CO2 20, BUN 11, creatinine 0.52. Procalcitonin level was 0.22. Bronchoscopy, from August 10, was positive for methicillin-resistant Staph aureus. Patient continues on cefepime and vancomycin. Chest x-ray shows patchy density at the left lung base. There is also some bibasilar atelectasis. Progress note dated August 16, 2023. The patient is seen today in room 266. He is on room air. He is getting saline at 50 cc an hour. He has no new complaints today. According to the nurse, he had an uneventful night. His IV can be discontinued. He is eating and drinking appropriately. Labs today include a white count 20.7, hemoglobin 12.8, hematocrit 37.4, and platelet count which is normal. Sodium 141, potassium 3.3, chlorides 110, CO2 20, BUN 8, creatinine 0.51. BAL sampling from August 10, was positive for methicillin-resistant Staph aureus. Chest x-ray today shows some left basilar infiltrates or atelectasis. The patient is seen today August 17, 2023 in follow-up on the regular medical floor. He was transferred out of the intensive care unit yesterday. He is awake and alert in no acute distress. He is maintaining O2 saturations in the 90s on room air. No IV fluids. He is still confused at times. account support rep remains at the bedside. Bronchial wash cultures were positive for MRSA. Blood cultures revealed no growth. Creatinine 0.57. GFR greater than 90. He is continued on vancomycin and Diflucan. He is more calm and cooperative on Seroquel. NicoDerm patch in place. On today's evaluation of 08/18/2023, the patient is being seen on the medical floor. The patient is going to be transferred out of the intensive care unit. He is doing well. No specific complaints. Mentation is adequate without any significant agitation or tremors. No significant cough or sputum production. The sputum is positive for staph aureus and the patient is post bronchoscopy that showed MRSA in the sputum. Based on that, a CAT scan of the chest was done todayThat showed changes of acute pancreatitis with surrounding inflammation. There was also another 6 cm peripancreatic fluid collection with early pseudocyst formation along the posterior superior aspect of the pancreatic body. Trace bilateral pleural effusions and atelectatic changes lung bases. No empyema. The patient has some background emphysema. The patient remains on vancomycin. In regards to the blood work, the white cell count of 20.4 with a hemoglobin 12.2, sodium is at 143, BUN is at 6 with a creatinine of 0.6 and a potassium level is at 3.6. Note that the blood culture was essentially negative for Staph aureus. The patient denies having any shortness of breath he is currently on room air oxygen. The white cell count remains elevated. No reported nausea or vomiting. No abdominal pain and the patient continues to be on vancomycin. 08/19/2023, the patient has no respiratory difficulties. The patient is calm and comfortable. The patient has no respiratory distress. No cough or sputum production. No agitation. No altered mentation. He has a pancreatic pseudocyst as identified on the CAT scan of the chest. He is known to have previous history of alcoholism. No new complaints otherwise for now. The plan is to discharge the patient home on a 7-day course of Bactrim regarding his MRSA in the sputum. As mentioned earlier, the CAT scan of the chest did not show any evidence of pneumonia. The patient's white cell count is at 21 with a hemogl obin 13.9 and a platelet count of 532. Sodium is at 144 with a BUN of 5 and a creatinine of 0.6. Note that his lipase level was up to 3840 consistent with acute pancreatitis knowing that the lipase level initially at time of admission was normal. Nevertheless, the patient is not having any significant GI issues. No nausea. No vomiting. No emesis. No abdominal pain. The patient was seen by GI services and the recommendation was to continue supportive management. Obviously, the pancreatic pseudocyst needs to be followed up and the patient needs to be managed for his chronic pancreatitis/pseudocyst related complications. Objective - Vital Signs Vital signs: Vital Signs Temp 97.9 F 08/19/23 07:50 Pulse 76 08/19/23 07:50 Resp 16 08/19/23 07:50 BP 140/80 08/19/23 07:50 Pulse Ox 95 08/19/23 07:50 FiO2 50 08/13/23 10:38 Intake & Output 08/18/23 08/19/23 08/19/23 18:59 06:59 18:59 Intake Total 1620 Output Total 175 200 Balance 1445 -200 Weight 74 kg Intake: Oral 1620 Output: Urine 175 200 Other: Voiding Method Toilet Toilet Urinal Urinal # Voids 1 3 1 ABP, PAP, CO, CI - Last Documented Arterial Blood Pressure 209/100 - Exam GENERAL EXAM: Alert, currently calm and cooperative 43-year-old male, on room air, comfortable in no apparent distress. HEAD: Normocephalic. EYES: Normal reaction of pupils, equal size. NOSE: Clear with pink turbinates. THROAT: No erythema or exudates. NECK: No masses, no JVD. CHEST: No chest wall deformity. LUNGS: Equal air entry with few scattered rhonchi. CVS: S1 and S2 normal with no audible murmur, regular rhythm. ABDOMEN: No hepatosplenomegaly, normal bowel sounds, no guarding or rigidity. SPINE: No scoliosis or deformity SKIN: No rashes CENTRAL NERVOUS SYSTEM: No focal deficits, tone is normal in all 4 extremities. EXTREMITIES: There is no peripheral edema. No clubbing, no cyanosis. Peripheral pulses are intact. - Labs CBC & Chem 7: 08/19/23 10:56 08/19/23 10:56 Labs: Abnormal Lab Results - Last 24 Hours (Table) 08/19/23 08/19/23 Range/Units 10:56 10:56 WBC 21.6 H (3.8-10.6) k/uL RBC 4.11 L (4.30-5.90) m/uL MCV 101.4 H (80.0-100.0) fL Plt Count 532 H (150-450) k/uL Neutrophils # 16.9 H (1.3-7.7) k/uL Monocytes # 1.1 H (0-1.0) k/uL Chloride 111 H (98-107) mmol/L BUN 5 L (9-20) mg/dL Creatinine 0.62 L (0.66-1.25) mg/dL Albumin 3.3 L (3.5-5.0) g/dL Lipase 3840 H (23-300) U/L Microbiology - Last 24 Hours (Table) 08/16/23 06:30 Gram Stain - Final Sputum Sputum Culture - Final Methicillin resist S. aureus 08/10/23 09:30 Fungal Culture - Preliminary Bronchoalviolar Lavage - Left 08/10/23 09:30 Acid Fast Bacilli Smear - Preliminary Bronchoalviolar Lavage - Left Acid Fast Bacilli Culture - Preliminary Assessment and Plan Plan: Acute alcohol withdrawal syndrome, admitted to [facility] on 06/03/2024, brought here to the emergency room 06/05/2024 for delirium. He required mechanical he required intubation mechanical ventilatory support from August 07 through August 13, 2023, extubated the patient is currently on room air oxygen. MRSA in the sputum treated with vancomycin. CAT scan of the chest shows no evidence of pneumonia. Could be colonization. Will be switched to Bactrim at time of discharge. MRSA in the sputum without evidence of any pneumonia based on CAT scan findings. Patient remains on IV vancomycin and the patient will be switched to oral Bact rim at time of discharge. Acute on chronic pancreatitis, chronic likely with pseudocyst formation, pancreatic enzymes are elevated based on the repeat levels. This could be also related to pseudocyst formation. GI services have been consulted. Acute delirium tremens, recovered Alcohol abuse admitting to 1 L of tequila daily Alcoholic liver disease secondary to above Thrombocytopenia secondary to above Marijuana use admitting to smoking 1 joint daily Chronic and ongoing tobacco dependence of up to 2 packs/day Leukocytosis likely secondary to pancreatitis Elevated lipase, consider acute on chronic pancreatitis and the patient has some pseudocyst formation. Plan: Overall pulmonary status is stable CAT scan of the chest was reviewed Currently stable and on room air Continued on vancomycin and switch the patient to oral Bactrim at time of discharge Continued on the [facility] protocol Monitor the white cell count, likely related to underlying acute on top of chronic pancreatitis Consult GI regarding the pancreatic findings. The patient's lipase is elevated. Suspect an acute on top of chronic pancreatitis with pseudocyst formation Tachycardia has improved Oxygenation is stable The patient is planning to return to [place] postdischarge
--- NOTE | 2023-08-19 15:45 | P.PN ---
Subjective Progress Note Date: 08/19/23 Principal diagnosis: Reason for follow-up is fever pneumonia Patient is a 43-year-old male with a past medical history significant for alcohol and drug abuse patient was at [facility] undergoing rehabilitation for alcohol abuse the patient was noticed to be undergoing alcohol withdrawal for the patient was brought to the hospital did require intubation because of h is respiratory status patient did have a fever, patient did have a BAL on 08/10/2023 growing MRSA. On today's evaluation that is 08/19/2023,the patient remains to be afebrile, patient is on room air not requiring supplemental oxygen and denies any shortness of breath no chest pain or cough.Patient denies having any nausea or vomiting, no abdominal pain and no diarrhea has been reported, patient feeling better wants to go home. Patient white count is 21.6, creatinine 0.62, CT of the chest did not show any empyema however there was concern for pancreatic pseudocyst Objective - Vital Signs Vital signs: Vital Signs Temp 98.4 F 08/19/23 12:49 Pulse 80 08/19/23 12:49 Resp 18 08/19/23 12:49 BP 118/83 08/19/23 12:49 Pulse Ox 97 08/19/23 12:49 FiO2 50 08/13/23 10:38 Intake & Output 08/18/23 08/19/23 08/19/23 18:59 06:59 18:59 Intake Total 1620 Output Total 175 200 Balance 1445 -200 Weight 74 kg Intake: Oral 1620 Output: Urine 175 200 Other: Voiding Method Toilet Toilet Urinal Urinal # Voids 1 3 1 ABP, PAP, CO, CI - Last Documented Arterial Blood Pressure 209/100 - Exam GENERAL DESCRIPTION: Middle-age male intubated on the vent RESPIRATORY SYSTEM: Unlabored breathing , decreased breath sounds at bases HEART: S1 S2 regular rate and rhythm , ABDOMEN: Soft , no tenderness EXTREMITIES: No edema feet - Labs CBC & Chem 7: 08/19/23 10:56 08/19/23 10:56 Labs: Abnormal Lab Results - Last 24 Hours (Table) 08/19/23 08/19/23 Range/Units 10:56 10:56 WBC 21.6 H (3.8-10.6) k/uL RBC 4.11 L (4.30-5.90) m/uL MCV 101.4 H (80.0-100.0) fL Plt Count 532 H (150-450) k/uL Neutrophils # 16.9 H (1.3-7.7) k/uL Monocytes # 1.1 H (0-1.0) k/uL Chloride 111 H (98-107) mmol/L BUN 5 L (9-20) mg/dL Creatinine 0.62 L (0.66-1.25) mg/dL Albumin 3.3 L (3.5-5.0) g/dL Lipase 3840 H (23-300) U/L Microbiology - Last 24 Hours (Table) 08/16/23 06:30 Gram Stain - Final Sputum Sputum Culture - Final Methicillin resist S. aureus 08/10/23 09:30 Fungal Culture - Preliminary Bronchoalviolar Lavage - Left 08/10/23 09:30 Acid Fast Bacilli Smear - Preliminary Bronchoalviolar Lavage - Left Acid Fast Bacilli Culture - Preliminary Assessment and Plan (1) Sepsis Status: Acute Code(s): A41.9 - SEPSIS, UNSPECIFIED ORGANISM SNOMED Code(s): 63815105 (2) Pneumonia Status: Acute Code(s): J18.9 - PNEUMONIA, UNSPECIFIED ORGANISM SNOMED Code(s): 615642690 (3) MRSA (methicillin resistant staph aureus) culture positive Status: Acute Code(s): Z22.322 - CARRIER OR SUSPECTED CARRIER OF METHICILLIN RESIS STAPH SNOMED Code(s): 113158177 (4) Oral thrush Status: Acute Code(s): B37.0 - CANDIDAL STOMATITIS SNOMED Code(s): 85089974 Plan: 1patient with sepsis in this patient who did have fever tachycardia elevated white count in this patient admitted to hospital with alcohol withdrawal symptoms and concern for possible component of aspiration pneumonitis with a sputum now growing MRSA 2-blood cultures remains to be negative 3-patient did have resolution of his fever, leukocytosis more likely related to pancreatic pseudocyst patient currently with no abdominal tenderness or abdominal pain not behaving as infected cyst CT chest was negative for any empyema we will be able to finish therapy with oral Bactrim DS for his underly ing MRSA pneumonia and a close the patient follow-up, discussed with the admitting physician GI has been consulted for pancreatitis and pseudocyst Dictation was produced using [employer] software. please excuse any grammatical, word or spelling errors. Time with Patient: Less than 30
--- NOTE | 2023-08-20 12:16 | CDI ---
Documentation Clarification Form Date: 08/20/2023 12:02:08 PM From: Hina Gage Phone: Admit Date: 08/06/2023 09:48:00 AM Patient Name: Ras Buchanan Visit Number: [id number] Discharge Date: 08/19/2023 03:17:00 PM ATTENTION: The Clinical Documentation Specialists (CDI) and [facility] Coding Staff appreciate your assistance in clarifying documentation. Please respond to the clarification below the line at the bottom and electronically sign. The CDI & [facility] Coding staff will review the response and follow-up if needed. Please note: Queries are made part of the Legal Health Record. If you have any questions, please contact the author of this message via ITS. Dr. Madhu Mcdaniel Acute on chronic pancreatitis is documented per Progress Note 08/19 and patient is noted to have Alcohol dependence. Please clarify if there is a relationship between the diagnoses. History/Risk Factors: 43yo M, Acute alcohol withdrawalwithDT, AHRF on vent, MRSA asp PNA, Pancreatic pseudocyst, Hypomagnesemia, Thrombocytopenia, Alcoholic hepatitis, cannabis, smoker Clinical Indicators: CT Scan 08/18: Changes ofacute interstitial pancreatitiswith moderate surroundinginflammation. There is a 6.0 x 1.9 cm peripancreatic fluidcollection/earlypseudocystalong the posterior superior aspect of the pancreatic body. Elevated lipase, Leukocytosislikely secondary topancreatitis Treatment: Monitor the white cell count,likelyrelated to underlying acute on top of chronicpancreatitis. Consult GI regarding the pancreatic findings. The patient's lipase iselevated. Suspect Yanet/C pancreatitiswithpseudocystformation. Tachycardiahas improved. Oxygenationis stable. The patient is planning to return to [place] post discharge Please clarify the relationship, if any, which is clinically appropriate for this patient: [x ] Acute on chronic pancreatitis is due to Alcohol dependence [ ] Acute on chronic pancreatitis is not due to Alcohol dependence [ ] Other explanation of clinical findings (please specify) [ ] Unable to determine (no explanation for clinical findings) (Template Last Revised: August 2020) MTDD
--- NOTE | 2023-08-20 12:35 | CDI ---
Documentation Clarification Form Date: 08/20/2023 12:17:00 PM From: Hina Gage Phone: Admit Date: 08/06/2023 09:48:00 AM Patient Name: Ras Buchanan Visit Number: [id number] Discharge Date: 08/19/2023 03:17:00 PM ATTENTION: The Clinical Documentation Specialists (CDI) and [facility] Coding Staff appreciate your assistance in clarifying documentation. Please respond to the clarification below the line at the bottom and electronically sign. The CDI & [facility] Coding staff will review the response and follow-up if needed. Please note: Queries are made part of the Legal Health Record. If you have any questions, please contact the author of this message via ITS. Dr. Madhu Mcdaniel Your patient has MRSA sepsis. Patient also experienced AHRF. Based on this information and the findings below, is there an additional diagnosis that is clinically appropriate for this patient? Patient history/risk factors: 43yo M, Acute alcohol withdrawal with DT, AHRF on vent, MRSA asp PNA, Pancreatic pseudocyst, Hypomagnesemia, Thrombocytopenia, Alcoholic hepatitis, cannabis, smoker WBC: 08/06 8.3 08/08 9.9 08/09 12.8 Lactic acid: 1.9 Blood cultures: revealed no growth Vitals signs: 08/06 T 99.4 IL 114-130 R 17-20 BP 144/113 127/87 122/85 O2 94-96 08/08 T 99 IL 109 R 21 BP 141/99 PO 96 FiO2 35 08/09 T 101.2 IL 122 R 27 BP 119/89 PO 93 FiO2 35 Treatment: >96hr vent; bronchoscopydone 08/10 which is growingMRSA. LastCXRcompleted shows smalleffusionwith focal bibasilar areas ofatelectasisand or consolidation ID Consult: being followed by ID Antibiotics: currently on Zosyn Is there an additional diagnosis that is clinically appropriate for this patient? [ x ] Severe Sepsis with organ failure [ ] Other, please specify [ ] Unable to determine SIRS Criteria: 2 or more of the following may indicate SIRS Temperature < 96.8F (36C) or > 101.0F (38.3C) Heart Rate > 90 bpm Respiratory Rate > 20 breaths/min or PaCO2 < 32 mmHg White Blood Cell Count > 12,000 or < 4,000 cells/mm3 or > 10% bands (Template Last Reviewed: June 2022) MTDD
== END 2023-08-19 15:17 | disposition home or self-care (01) | DRG 896 ==
LOC: EC 07:20 → 4SSUR 09:48 → 2SICU 12:39 → 5NMEDONC 08-16 14:07
PROVIDERS: ADMIT Internal Medicine; ATTEND Internal Medicine
PROC: HZ2ZZZZ Detoxification Services for Substance Abuse Treatment (ICD-10-PCS; 2023-08-06)
PROC: 5A1955Z Respiratory Ventilation, Greater than 96 Consecutive Hours (ICD-10-PCS; principal; 2023-08-07)
PROC: 03HY32Z Insertion of Monitoring Device into Upper Artery, Percutaneous Approach (ICD-10-PCS; 2023-08-07)
PROC: 4A133B1 Monitoring of Arterial Pressure, Peripheral, Percutaneous Approach (ICD-10-PCS; 2023-08-07)
PROC: 4A133J1 Monitoring of Arterial Pulse, Peripheral, Percutaneous Approach (ICD-10-PCS; 2023-08-07)
PROC: 0BH18EZ Insertion of Endotracheal Airway into Trachea, Via Natural or Artificial Opening Endoscopic (ICD-10-PCS; 2023-08-07)
PROC: 0D9670Z Drainage of Stomach with Drainage Device, Via Natural or Artificial Opening (ICD-10-PCS; 2023-08-07)
PROC: 3E0G76Z Introduction of Nutritional Substance into Upper GI, Via Natural or Artificial Opening (ICD-10-PCS; 2023-08-07)
PROC: 0B9J8ZX Drainage of Left Lower Lung Lobe, Via Natural or Artificial Opening Endoscopic, Diagnostic (ICD-10-PCS; 2023-08-10)
PROC: 0B9F8ZX Drainage of Right Lower Lung Lobe, Via Natural or Artificial Opening Endoscopic, Diagnostic (ICD-10-PCS; 2023-08-10)
DX: F10.231 Alcohol dependence with withdrawal delirium (principal); A41.02 Sepsis due to Methicillin resistant Staphylococcus aureus; J96.01 Acute respiratory failure with hypoxia; R65.20 Severe sepsis without septic shock; J69.0 Pneumonitis due to inhalation of food and vomit; K85.20 Alcohol induced acute pancreatitis without necrosis or infection; J15.212 Pneumonia due to Methicillin resistant Staphylococcus aureus; K86.0 Alcohol-induced chronic pancreatitis; J90 Pleural effusion, not elsewhere classified; K86.3 Pseudocyst of pancreas; E87.3 Alkalosis; B37.0 Candidal stomatitis; J43.9 Emphysema, unspecified; K70.10 Alcoholic hepatitis without ascites; D69.59 Other secondary thrombocytopenia; F32.A Depression, unspecified; F17.210 Nicotine dependence, cigarettes, uncomplicated; E83.42 Hypomagnesemia; F41.9 Anxiety disorder, unspecified; R13.10 Dysphagia, unspecified; Z56.0 Unemployment, unspecified
CPT/HCPCS: 36415; 36600; 71045; 71046; 71260; 76700; 80048; 80053; 80202; 81001; 82150; 82565; 82805; 83605; 83690; 83735; 84132; 84145; 85025; 86140; 87040; 87070; 87077; 87102; 87116; 87186; 87205; 87206; 87496; 87498; 87502; 87529; 87634; 87635; 87636; 87798; 88108; 88305; 89050; 93005; 94002; 94003; 96361; 96365; 96366; 96375; 96376; 99285